=== PATIENT | male | born 1980 | race Caucasian/White ===

== ENCOUNTER 2023-08-23 12:31 | Outpatient (OUT) | payer MEDICAID, SELFPAY ==
--- NOTE | 2023-08-23 12:38 | FL_ITS ---
[address] [address] Patient Name: SREEDHAR MAYS MRN: [id number] date: 1980 Sex: M Assigned Patient Location: [place] Current Patient Location: [place] Accession/Order Number: [id number] Exam Date: 08/23/2023 12:45 Report Date: 08/23/2023 13:42 At the request of: TIM BENJAMIN Procedure: FL barium swallow EXAMINATION: FL barium swallow, FL cineradiography HISTORY: Pharyngoesophageal Dysphagia R13.14 COMPARISON: No relevant comparison available. TECHNIQUE: A swallowing evaluation was performed with fluoroscopy in the usual manner. Standard level fluoroscopic mode of operation utilized. The procedure was recorded. The patient was given thin barium as well as a barium tablet FINDINGS: ORAL PHASE: Normal deglutition. PHARYNGEAL PHASE: Normal swallowing. ASPIRATION: None. STRUCTURE: Normal. No visible obstruction, stricture, or dilatation. OTHER: Negative. FL/FL barium swallow IMPRESSION: Normal exam Electronically authenticated by: ANAHI NETTLES Date: 08/23/2023 13:42
--- NOTE | 2023-08-23 12:38 | FL_ITS ---
The [address] [address] Patient Name: SREEDHAR MAYS MRN: [id number] date: 1980 Sex: M Assigned Patient Location: [place] Current Patient Location: [place] Accession/Order Number: [id number] Exam Date: 08/23/2023 12:45 Report Date: 08/23/2023 13:42 At the request of: TIM BENJAMIN Procedure: FL cineradiography EXAMINATION: FL barium swallow, FL cineradiography HISTORY: Pharyngoesophageal Dysphagia R13.14 COMPARISON: No relevant comparison available. TECHNIQUE: A swallowing evaluation was performed with fluoroscopy in the usual manner. Standard level fluoroscopic mode of operation utilized. The procedure was recorded. The patient was given thin barium as well as a barium tablet FINDINGS: ORAL PHASE: Normal deglutition. PHARYNGEAL PHASE: Normal swallowing. ASPIRATION: None. STRUCTURE: Normal. No visible obstruction, stricture, or dilatation. OTHER: Negative. FL/FL cineradiography IMPRESSION: Normal exam Electronically authenticated by: ANAHI NETTLES Date: 08/23/2023 13:42
== END 2023-08-23 12:32 | disposition home or self-care (01) ==
PROVIDERS: PCP Family Medicine; Visit Provider Otolaryngology
DX: R13.14 Dysphagia, pharyngoesophageal phase (principal)
CPT/HCPCS: 74220; 76120

== ENCOUNTER 2023-08-30 13:09 | Day surgery (SDC) | payer SELFPAY ==
--- NOTE | 2023-08-30 13:13 | US_ITS ---
[address] [address] Patient Name: SREEDHAR MAYS MRN: [id number] date: 1980 Sex: M Assigned Patient Location: [place] Current [place] Location: [place] Accession/Order Number: [id number] Exam Date: 08/30/2023 13:15 Report Date: 08/30/2023 14:38 At the request of: TIM BENJAMIN Procedure: US biopsy thyroid EXAMINATION: US biopsy thyroid HISTORY: Thyroid Nodule COMPARISON: Ultrasound thyroid 07/18/2023 TECHNIQUE: After obtaining informed consent, ultrasound-guided fine needle aspiration was performed in the usual sterile manner. FINDINGS: IMAGING: Ultrasound. BIOPSY NEEDLE: 25-gauge; 3 separate passes LOCATION: Left lobe inferior pole heterogeneous 2.9 cm nodule. SPECIMEN TYPE: Cellular tissue. LOCAL ANESTHETIC: Buffered Xylocaine. COMPLICATIONS: None. LABORATORY: Prepared slide smears and washings for cell block evaluation. OTHER: Negative. PATHOLOGY: Pending. An addendum will be added when results are available. US/US biopsy thyroid IMPRESSION: 1. Uneventful ultrasound guided fine needle aspiration (FNA). 2. Pathology results are pending. Electronically authenticated by: KAT GHOTRA Date: 08/30/2023 14:38
--- OUTSIDE RECORDS SUMMARY | 2023-08-30 13:13 | XMS_ITS | CCD ---
Author Name Unknown Address [address] [place] [address] Organization [facility] Providers Care Contact Center Specialist Name Role Phone Libby HERNANDEZ, Yvonne Ashley Unavailable Love Templeton MD Primary Care Provider DR SINDY CHAPA Consulting Unavailable YUMIKO, DR LISANDRO Johnson Admitting Unavailable YOKASTA, DR LOVE Barajas Primary Care Unavailable YUMIKO, DR LISANDRO Johnson Attending Unavailable YUMIKO, DR LISANDRO Johnson Consulting Unavailable HAY, DR APPLE Consulting Unavailable MARKER, DR TOMAS Consulting Unavailable BRIANMERLYN HUSAIN Consulting Unavailable BJORN JEFFERSON Consulting Unavailable JOSE A TEJADA Consulting Unavailable YOKASTA, DR LOVE Barajas Primary Care Unavailable MOJGAN GRIMM Attending Unavailable MOJGAN GRIMM Consulting Unavailable MOJGAN GRIMM Admitting Unavailable Eliu ALVARADO Attending Unavailable Love Templeton MD Primary Care Provider AUDREY LESTER I Attending Unavailable LOVE TEMPLETON Referring Unavailable WONDERLY, LOVE Barajas Primary Care Unavailable STEVE ROLON Attending Unavailable WONDERLY, LOVE Barajas Referring Unavailable WONDERLY, LOVE Barajas Primary Care Unavailable LOVE TEMPLETON Attending Unavailable SANCHEZ BARBER Attending Unavailable TIM BENJAMIN Attending Unavailable LOVE TEMPLETON B Referring Unavailable WONDERROGER, LOVE Barajas Attending Unavailable WONDERROGER, LOVE B Referring Unavailable WONDERROGER, LOVE Barajas Referring Unavailable AUDREY LESTER I Referring Unavailable WONDERLY, LOVE Barajas Primary Care Unavailable YOKASTA, LOVE Barajas Primary Care Unavailable JUAN KELLEY Attending Unavailable AUDREY LESTER I Referring Unavailable LOVE TEMPLETON Primary Care Unavailable Love Templeton MD Primary Care Provider Allergies Allergy Classification Reported Allergen(s) Allergy Type Date of Onset Reaction(s) Facility (9 sources) Cephalexin; Translations: [CEPHALEXIN] Drug Allergy 6 GI Upset, GI Disturbance [facility] (9 sources) diphenhydrAMINE; Translations: [DIPHENHYDRAMINE HCL] Drug Allergy 0 Other: See Comments, Dizziness [facility] (9 sources) Escitalopram; Translations: [ESCITALOPRAM OXALATE] Drug Allergy 3 Unknown [facility] (1 source) diphenhydrAMINE Drug Allergy [facility] (4 sources) Amoxicillin; Translations: [AMOXICILLIN] Drug Allergy [address] [facility] (4 sources) buPROPion; Translations: [BUPROPION HCL] Drug Allergy 2 Other (See Comments) [facility] (4 sources) tiZANidine; Translations: [TIZANIDINE] [email or web address] (4 sources) traZODone; Translations: [TRAZODONE] Drug Allergy [address] [facility] Medications Current Medications Medication Drug Class(es) Dates Sig (Normalized) Sig (Original) [id number] 200 actuat albuterol 0.09 mg/actuat metered dose inhaler (2 sources) beta2-Adrenergic Agonist Start: 04-12-2022 take 2 puff(s) by inhalation every four hours as needed for wheezing albuterol (PROVENTIL HFA;VENTOLIN HFA) 90 mcg/actuation inhaler Inhale 2 puffs every 4 (four) hours as needed for wheezing. 0 04/12/2022 Active 24 hr alfuzosin hydrochloride 10 mg extended release oral tablet (2 sources) alpha-Adrenergic Lucina Start: 01-09-2023 take 1 tablet by mouth every twenty-four hours in the morning alfuzosin (UroxatraL) 10 mg 24 hr tablet Take 1 tablet (10 mg total) by mouth in the morning. 30 tablet 11 01/09/2023 Active betamethasone 0.5 mg/ml / clotrimazole 10 mg/ml topical cream (2 sources) Azole Antifungal, Corticosteroid Start: 08-07-2023 End: 09-04-2023 clotrimazole-beta methasone (LOTRISONE) cream Apply 1 Application topically in the morning and 1 Application before bedtime. Do all this for 28 days. 45 g 0 08/07/2023 09/04/2023 Active omeprazole 20 mg delayed release oral capsule (7 sources) Proton Pump Inhibitor Start: 10-03-2022 take 1 capsule by mouth in the morning omeprazole (PriLOSEC) 20 mg capsule Take 1 capsule (20 mg total) by mouth in the morning. 0 10/03/2022 Active Start: 06-04-2016 omeprazole (SC ILOSEC) 20 mg capsule Take 1 capsule by mouth. 0 06/04/2016 Active Comment on above: Take 1 capsule by mo [facility]. sildenafil 100 mg oral tablet (7 sources) Phosphodiesterase 5 Inhibitor Start: 06-04-20 take 1 tablet by mouth once daily sildenafiL (VIAGRA) 100 mg tablet take 1 tablet by mouth daily if needed for ERECTILE DYSFUNCTION 30 tablet 1 06/04/2023 Active Start: 07-07-2021 take 1 tablet by surinder th every twenty-four hours as needed sildenafil (VIAGRA) 100 mg tablet Take 100 mg by mouth at bedtime as needed. 0 07/07/2021 Active Comment on above: Take 100 mg by mouth at bedtime as needed. sucralfate 1000 mg oral tablet (1 source) Aluminum Complex Start: 08-13-2023 sucralfate (CARAFATE) 1 gram tablet Take 1 tablet (1 g total) by mouth in the morning and 1 tablet (1 g total) at noon and 1 tablet (1 g total) in the evening. 21 tablet 0 08/13/2023 Active Completed/Discontinued Medications Medication Drug Class(es) Dates Sig (Normalized) Sig (Original) atorvastatin 10 mg oral tablet (5 sources) HMG-CoA Reductase Inhibitor Start: 10-06-2021 take 1 tablet by mouth once daily atorvastatin (LIPITOR) 10 mg tablet Take 1 tablet by mouth once daily. 0 10/06/2021 Active Comment on above: Take 1 tablet by surinder once daily. fluticasone propionate 0.05 mg/actuat metered dose nasal spray (4 sources) Corticosteroid Start: 01-20-2021 fluticasone (FLONASE) 50 mcg/actuation nasal spray Use 1 Elizabeth in the nose. 0 01/20/2021 Active Comment on above: Use 1 Elizabeth in the n ose. hydrocortisone 0.025 mg/mg topical ointment (4 sources) Corticosteroid Start: 09-26-2021 hydrocortisone 2.5 % ointment apply to affected area OF GROIN twice a day 0 09/26/2021 Active Comment on above: apply to affected ar ea OF GROIN twice a day Loperamide (4 sources) Opioid Agonist loperamide HCl (LOPERAMIDE ORAL) Take by mouth. 0 Active Comment on above: Take by mouth. loratadine 10 mg oral tablet (5 sources) loratadine (CLARITIN) 10 mg tablet Take 10 mg by mouth. 0 Active Comment on above: Take 10 mg by mouth. Problems Active Problems Problem Classification Problem Date Documented Da te Episodic/Chronic Acute cerebrovascular disease (4 sources) Cerebral infarction, unspecified; Translations: [CEREBRAL INFARCTION UNSPECIFIED] Onset: 2 Chronic Anxiety disorders (2 sources) Anxiety; Translations: [Anxiety disorder, unspecified] Onset: 7 12-13-2016 Chronic Cardiac dysrhythmias (2 sources) Atrial paroxysmal tachycardia; Translations: [PAT (paroxysmal atrial tachycardia)] Onset: 1 05-04-2022 Chronic Disorders of lipid metabolism (3 sources) Pure hypercholesterolemia, unspecified; Translations: [Hyperlipidemia] Onset: 7 12-07-2020 Chronic Esophageal disorders (4 sources) Gastroesophageal reflux disease without esophagitis; Translations: [Gastro-esophageal reflux disease without esophagitis] Onset: 2 Chronic Gastritis and duodenitis (1 source) Gastritis, unspecified, with bleeding; Translations: [Gastritis, unspecified, with bleeding] Onset: 4 Episodic Headache; including migraine (2 sources) Migraine; Translations: [Migraine, unspecified, not intractable, without status migrainosus] Onset: 7 12-13-2016 Chronic Headache; including migraine (1 source) Headache; including migraine; Translations: [HEADACHE UNSPECIFIED] Onset: 2 Mood disorders (2 sources) Depressive disorder; Translations: [Depression] Onset: 7 12-13-2016 Chronic Other circulatory disease (1 source) Other specified symptoms and signs involving the circulatory and respiratory systems; Translations: [Other specified symptoms and signs involving the circulatory and respiratory systems] Onset: 3 Episodic Other endocrine disorders (1 source) Male hypogonadism; Translations: [Testicular hypofunction] 08-28-2023 Chronic Other gastrointestinal disorders (2 sources) Irritable bowel syndrome; Translations: [Irritable bowel syndrome without diarrhea] Onset: 7 12-13-2016 Chronic Other male genital disorders (5 sources) Male erectile dysfunction, unspecified; Translations: [Impotence of organic origin] Onset: 1 08-07-2023 Chronic Other male genital disorders (4 sources) Pain of right testicle; Translations: [Right testicular pain] Episodic Other nutritional; endocrine; and metabolic disorders (1 source) Hypocalcemia; Translations: [HYPOCALCEMIA] Onset: 2 Chronic Other nutritional; endocrine; and metabolic disorders (2 sources) Body mass index 30+ - obesity; Translations: [Obesity, unspecified] Onset: 1 12-07-2020 Chronic Other skin disorders (1 source) Eruption; Translations: [Rash and other nonspecific skin eruption] 08-07-2023 Episodic Residual codes; unclassified (3 sources) Tobacco use and exposure - finding; Translations: [Tobacco use] Onset: 2 Episodic Substance-related disorders (3 sources) Nicotine dependence, cigarettes, uncomplicated; Translations: [Smoker] Onset: 7 12-07-2020 Chronic Thyroid disorders (2 sources) Nontoxic single thyroid nodule; Translations: [NONTOXIC SINGLE THYROID NODULE] Onset: 2 Chronic Unclassified (1 source) CONTACT W/AND (SUSP) EXPOS COVID-19; Translations: [CONTACT W/AND (SUSP) EXPOS COVID-19] Onset: 2 Unclassified (3 sources) COUGH, UNSPECIFIED; Translations: [COUGH, UNSPECIFIED] Onset: 2 Unclassified (1 source) Rash Onset: 4 Unclassified (1 source) GI Problem Onset: 4 Unclassified (1 source) Abdominal Pain, Coffee Ground Emesis Onset: 4 Past or Other Problems Problem Classification Problem Date Documented Da te Episodic/Chronic Abdominal pain (4 sources) Right inguinal pain; Translations: [Right lower quadrant pain] Onset: 02-03-2013 04-08-2020 Episodic Diseases of mouth; excluding dental (2 sources) Acquired anomaly of uvula; Translations: [Other lesions of oral mucosa] Onset: 03-28-2017 03-28-2017 Episodic Genitourinary symptoms and ill-defined conditions (4 sources) Delay when starting to pass urine; Translations: [Hesitancy of micturition] Onset: 01-20-2021 03-14-2023 Episodic Mood disorders (2 sources) Mood disorders Onset: 06-09-2020 06-09-2020 Other gastrointestinal disorders (2 sources) Diarrhea; Translations: [Diarrhea, unspecified] Onset: 02-03-2013 02-14-2021 Episodic Other gastrointestinal disorders (2 sources) Heartburn; Translations: [Heartburn] Onset: 02-03-2013 02-14-2021 Episodic Other lower respiratory disease (2 sources) Snoring; Translations: [Snoring] Onset: 12-19-2016 12-19-2016 Episodic Other lower respiratory disease (4 sources) Apnea; Translations: [Apnea, not elsewhere classified] Onset: 12-19-2016 Resolved: 03-28-2017 03-16-2020 Episodic Other lower respiratory disease (2 sources) Dyspnea; Translations: [Dyspnea, unspecified] Onset: 08-02-2016 Resolved: 12-07-2020 12-07-2020 Episodic Other lower respiratory disease (2 sources) Cough; Translations: [Cough] Onset: 08-02-2016 Resolved: 12-07-2020 12-07-2020 Episodic Other male genital disorders (2 sources) Pain in testicle; Translations: [Testicular pain, unspecified] Onset: 02-09-2020 02-09-2020 Episodic Other upper respiratory disease (2 sources) Pain in throat; Translations: [Pain in throat] Onset: 12-13-2016 12-13-2016 Episodic Other upper respiratory disease (2 sources) Nasal obstruction; Translations: [Other specified disorders of nose and nasal sinuses] Onset: 12-13-2016 12-13-2016 Episodic Other upper respiratory disease (2 sources) Deviated nasal septum; Translations: [Deviated nasal septum] Onset: 03-28-2017 03-28-2017 Episodic Other upper respiratory infections (5 sources) Acute pharyngitis, unspecified; Translations: [Laryngitis] Onset: 08-02-2016 08-02-2016 Episodic Unclassified (1 source) COUGH, UNSPECIFIED; Translations: [COUGH, UNSPECIFIED] Onset: 04-12-2022 Results Test Name Value Interpretation Reference Range Facility TESTOSTERONE,F AND Ton 08-20 TESTOSTERONE,F,AD,ML 53.3 pg/mL Normal 47.0-244.0 [facility] Comment on above: Result Comment: NOTE INTERPRETIVE INFORMATION: Testosterone, Free by Dialysis This laboratory reference method for the direct measurement of free testosterone is not recommended when low testosterone concentrations, such as those found in children and cisgender females, are expected. For these individuals, the preferred test is Testosterone, Free (Adult Females, Children, or Individuals on Testosterone-Suppressing Hormone Therapy) (Streetcar test code 6077289). For individuals on testosterone hormone therapy, refer to cisgender male reference intervals. No reference intervals have been established for males younger than 18 years or for cisgender females. For a complete set of all established reference intervals, refer to ltd.PhoneTell/Tests/Pub/6981954. This test was developed and its performance characteristics determined by [facility]. It has not been cleared or approved by the [place] Food and Drug Administration. This test was performed in a CLIA certified laboratory and is intended for clinical purposes. Performed By: [facility] [address] [place] [address] Retrieval Specialist: Flakito Moreira MD, PhD CLIA Number: [id number] Performed By: #### T EFTMA #### [facility] ([id number]) [address] [place] [address]6464 TESTOSTERONE,TOT 278.9 ng/dL Low 300.0-890.0 [facility] Comment on above: Result Comment: NOTE This test was developed and its performance characteristics determined by [facility]. It has not been cleared or approved by the [place] Food and Drug Administration. This test was performed in a CLIA certified laboratory and is intended for clinical purposes. Performed By: #### T EFTMA #### [facility] ([id number]) [address] [place] [address] 38156 CBC AND AUTO DIFFon 08-13-19 24 ABSOLUTE BASOPHIL 0.0 X10E9/L Normal 0.0-0.2 [facility] Comment on above: Performed By: #### C BCA #### [facility] ([id number]) [address] [place] [address] 59852 ABSOLUTE NEUTROPHIL 4.4 X10E9/L Normal 1.5-6.6 [facility] Comment on above: Performed By: #### C BCA #### [facility] ([id number]) [address] [place] [address] 98851 Basophils/100 WBC (Bld) 0.5 % Normal [facility] Comment on above: Performed By: #### C BCA #### [facility] ([id number]) [address] [place] [address] 72591 Eosinophils (Bld) [#/Vol] 0.1 10*3/uL Normal 0.0-0.4 [facility] Comment on above: Performed By: #### C BCA #### [facility] ([id number]) [address] [place] [address] 88693 Eosinophils/100 WBC (Bld) 1.2 % Normal [facility] Comment on above: Performed By: #### C BCA #### [facility] ([id number]) [address] [place] [address] 87867 Erythrocyte distribution width (RBC) [Ratio] 13.1 % Normal 11.5-15.0 [facility] Comment on above: Performed By: #### C BCA #### [facility] ([id number]) [address] [place] [address] 40334 Hematocrit (Bld) [Volume fraction] 45.5 % Normal 39-49 [facility] Comment on above: Performed By: #### C BCA #### [facility] ([id number]) [address] [place] [address] 40474 Hemoglobin (Bld) [Mass/Vol] 15.6 g/dL Normal 13.0-17.0 [facility] Comment on above: Performed By: #### C BCA #### [facility] ([id number]) [address] [place] [address] 78530 Lymphocytes (Bld) [#/Vol] 2.0 10*3/uL Normal 1.0-3.5 [facility] Comment on above: Performed By: #### C BCA #### [facility] ([id number]) [address] [place] [address] 51309 Lymphocytes/100 WBC (Bld) 28.5 % Normal [facility] Comment on above: Performed By: #### C BCA #### [facility] ([id number]) [address] [place] [address] 26293 MCH (RBC) [Entitic mass] 32.4 pg Normal 27-34 [facility] Comment on above: Performed By: #### C BCA #### [facility] ([id number]) [address] [place] [address] 43258 MCHC (RBC) [Mass/Vol] 34.4 g/dL Normal 32-36 [facility] Comment on above: Performed By: #### C BCA #### [facility] ([id number]) [address] [place] [address] 59844 MCV (RBC) [Entitic vol] 94 fL Normal 80-100 [facility] Comment on above: Performed By: #### C BCA #### [facility] ([id number]) [address] [place] [address] 13008 Monocytes (Bld) [#/Vol] 0.6 10*3/uL Normal 0-0.9 [facility] Comment on above: Performed By: #### C BCA #### [facility] ([id number]) [address] [place] [address] 94866 Monocytes/100 WBC (Bld) 8.1 % Normal [facility] Comment on above: Performed By: #### C BCA #### [facility] ([id number]) [address] [place] [address] 74262 Neutrophils/100 WBC (Bld) 61.7 % Normal [facility] Comment on above: Performed By: #### C BCA #### [facility] ([id number]) [address] [place] [address] 47471 Platelet mean volume (Bld) [Entitic vol] 8.4 fL Normal 7-12 [facility] Comment on above: Performed By: #### C BCA #### [facility] ([id number]) [address] [place] [address] 33105 Platelets (Bld) [#/Vol] 263 10*3/uL Normal 150-450 [facility] Comment on above: Performed By: #### C BCA #### [facility] ([id number]) [address] [place] [address] 84234 RBC COUNT 4.83 X10E12/L Normal 4.10-5.70 [facility] Comment on above: Performed By: #### C BCA #### [facility] ([id number]) [address] [place] [address] 92799 WBC (Bld) [#/Vol] 7.2 10*3/uL Normal 4.0-11.0 [facility] Comment on above: Performed By: #### C BCA #### [facility] ([id number]) [address] [place] [address] 80356 TESTOSTERONE,F AND Ton 08-08 TESTOSTERONE,F,AD,ML 41.2 pg/mL Low 47.0-244.0 [facility] Comment on above: Result Comment: NOTE INTERPRETIVE INFORMATION: Testosterone, Free by Dialysis This laboratory reference method for the direct measurement of free testosterone is not recommended when low testosterone concentrations, such as those found in children and cisgender females, are expected. For these individuals, the preferred test is Testosterone, Free (Adult Females, Children, or Individuals on Testosterone-Suppressing Hormone Therapy) ([employer] test code [id number]). For individuals on testosterone hormone therapy, refer to cisgender male reference intervals. No reference intervals have been established for males younger than 18 years or for cisgender females. For a complete set of all established reference intervals, refer to ltd.PhoneTell/Tests/Pub/1736566. This test was developed and its performance characteristics determined by [facility]. It has not been cleared or approved by the [place] Food and Drug Administration. This test was performed in a CLIA certified laboratory and is intended for clinical purposes. Performed By: [facility] [address] [place] [address] Retrieval Specialist: Flakito Moreira MD, PhD CLIA Number: [id number] Performed By: #### T EFTMA #### [facility] ([id number]) [address] [place] [address] 64255 TESTOSTERONE,TOT 189.8 ng/dL Low 300.0-890.0 [facility] Comment on above: Result Comment: NOTE This test was developed and its performance characteristics determined by [facility]. It has not been cleared or approved by the US Food and Drug Administration. This test was performed in a CLIA certified laboratory and is intended for clinical purposes. Performed By: #### T EFTMA #### [facility] ([id number]) [address] [place] [address] CHEST WO IV CONTRASTon CT CHEST WO IV CONTRAST EXAMINATION: CT scan of the chest HISTORY: Nicotine dependence COMPARISON: None TECHNIQUE: Multiple serial axial images of the chest from the base neck through the upper abdomen with post sagittal coronal reconstruction was performed without intravenous or oral administration of contrast. All CT scans at this facility use dose modulation, iterative reconstruction, and/or weight based dosing when appropriate to reduce radiation dose to as low as reasonably achievable. FINDINGS: The right lung parenchyma shows no focal parenchymal abnormalities. No pleural effusions. No pneumothoraces. The left lung parenchyma shows no focal parenchymal abnormalities no pleural effusions. No pneumothoraces. The heart and great vessels are intact. No significant periaortic, pretracheal, parahilar or subcarinal adenopathy. Within the [id number] visualized abdominal contents show the gallbladder is surgically absent. In the nfhag-sb-ycyl there is a left borderline substernal thyroid. There is an ill-defined area of low-attenuation nodule within this component measuring 1.3 cm. There is multilevel degenerative change with bridging osteophytes of the visualized thoracic spine. IMPRESSION: 1 THERE IS A BORDERLINE LEFT LOBE OF THE THYROID THAT IS SUBSTERNAL. THERE IS ALSO AN ILL-DEFINED NODULE WITHIN THIS COMPONENT. WILL NEED FURTHER EVALUATION. RECOMMEND FOLLOW-UP THYROID ULTRASOUND TO FURTHER EVALUATE. 2. UNREMARKABLE CT SCAN OF THE CHEST DESCRIBED ABOVE ELECTRONICALLY SIGNED BY: Garret Pearl MD Normal Not Available XR CHEST 2 VIEWSon 3 XR CHEST 2 VIEWS EXAM: XR CHEST 2 VIE WS CLINICAL INDICATION: shortness of breath COMPARISON: None. FINDINGS: Lungs are symmetrically inflated. No focal airspace disease. No pneumothorax or pleural effusion. Cardiac silhouette and mediastinum are within normal limits. No acute osseous abnormality. IMPRESSION: No acute cardiopulmonary abnormality identified. ELECTRONICALLY SIGNED BY: Bennie Norman MD Normal Not Available MRI Knee w/o Lefton 05-22-20 22 MRI Knee w/o Left History: Medial and lateral knee pain. Knee locking. Internal derangement of left knee. History of prior surgery Technique: Multiplanar multisequence MRI of the knee was performed without contrast. Comparison: Radiographs of the knee 10/19/2021 Findings: Quadriceps and patellar tendons are intact. Small joint effusion with 2 loose bodies at the superior aspect of the lateral femoral trochlea measuring approximately 13 mm and 9 mm respectively. Anterior and posterior cruciate ligaments are intact. The medial collateral ligament, lateral collateral ligament, and popliteus myotendinous unit are intact. Horizontally oriented linear hyperintense signal within the anterior horn of the lateral meniscus appears to reach the intra-articular surface on one image. The medial meniscus is intact. Diffuse cartilage abnormality of the weightbearing lateral femoral condyle comprised of several tiny partial and full-thickness cartilage defects with a few foci of subcortical bone marrow edema. Popliteal fossa structures are intact. Tiny Olivas cyst. IMPRESSION: Possible horizontal tear of the anterior horn of the lateral meniscus. Mild lateral compartment osteoarthritis. Report reported and signed by Dylan Lazo on 05/22/2022 1320 Normal [facility]on 03-29 SARS-CoV-2 (COVID-19) RNA OLGA LIDIA+probe Ql (Unsp spec) Not detected Normal NOT DETECTED [facility] Comment on above: Result Comment: This test is not yet approved or cleared by the [place] FDA. When there are no FDA-approved or cleared tests available, and other criteria are met, FDA can make tests available under an emergency access mechanism called an Emergency Use Authorization (EUA). The EUA for this test is supported by the [place] of Health and Human Service's (HHS's) declaration that circumstances exist to justify the emergency use of in vitro diagnostics for the detection and/or diagnosis of the virus that causes COVID-19. This EUA will remain in effect (meaning this test can be used) for the duration of the COVID-19 declaration justifying emergency of IVDs, unless it is terminated or revoked by FDA (after which the test may no longer be used). When diagnostic testing is negative, the possibility of a false negative should be considered in the context of a patient's recent exposures and the presence of clinical signs and symptoms consistent with SARS-CoV-2. Performed By: #### [facility] ####[facility] [id number] [place], [place] [id number] Rickey Mani Walter 12-29-2021 ANAN Telephone (JESSICAN) GEORGES MAYS ([id number]) 1980 M Date Time Provider Department 12/29/21 SAMY DUKE During your visit today, we recorded the following information about you: Samy Duke MD 12/29/2021 10:25 AM Signed Called to check on patient postop No answer Left brief VM Samy Duke MD, PhD Allergies As of Date: 12/29/2021 Noted Allergy Reaction CEPHALEXIN 07/26/2016 8 - GI Upset DIPHENHYDRAMINE HCL 03/14/2020 14 - Other: See Comments Comments: Drowsy, sleepy ESCITALOPRAM OXALATE 02/02/2013 16 - Unknown Date Reviewed: 12/28/2021 Reviewed by: Karen Guaman RN - Fully Assessed Reason for Visit: Post-Op Visit [1236] Prescriptions as of 12/29/2021 - atorvastatin (LIPITOR) 10 mg tablet Take 1 tablet by mouth once daily. - loratadine (CLARITIN) 10 mg tablet Take 10 mg by mouth. - omeprazole (PRILOSEC) 20 mg capsule Take 1 capsule by mouth. - sildenafil (VIAGRA) 100 mg tablet Take 100 mg by mouth at bedtime as needed. Problem List As Of Date 12/29/2021 Noted Resolved Gastroesophageal reflux disease without esophag*12/19/2021 Tobacco use [Z72.0] 12/19/2021 Encounter Status:Closed by SAMY DUKE on 12/29/21 [facility] ANES POSTPROC EVALon 022 ANES POSTPROC EVAL HNO ID: [id number] Author: Luis Fernando Farfan MD Service: Anesthesiology Author Type: Anesthesiologist Type: Anesthesia Postprocedure Evaluation Filed: 12/28/2021 1:12 PM Note Text: POST ANESTHESIA EVALUATION NOTE : 1980 Procedure Summary Date: 12/28/21 Room / Location: [address] Anesthesia Start: 1201 Anesthesia Stop: 1251 Procedures: SPERMATIC CORD DENERVATION (Right Groin) EXCISION LESION SPERMATIC CORD (Right ) EXCISION VARICOCELE (Right ) Diagnosis: Testicular pain, right (Testicular pain, right [N50.811]) Surgeons: Yvonne Coleman MD Responsible Provider: Luis Fernando Farfan MD Anesthesia Type: general ASA Status: 2 Anesthesia Type: general Airway Type: LMA Last Vitals Vitals Value Taken Time BP 126/74 12/28/21 1311 Temp 36.1 ?C (97 ?F) 12/28/21 1249 Pulse 74 12/28/21 1311 Resp 16 12/28/21 1311 SpO2 99 % 12/28/21 1311 Post Anesthesia Patient Status Patient Evaluation: PACU. PACU/ICU Patient Condition: stable. Anticipated Disposition: phase 2 then home. Neurological Status: aware and responsive. Pulmonary Status: breathing comfortably on room air Airway Control: returned to baseline unsupported. Cardiovascular Status: stable. Pain Management: clinically adequate Postoperative Hydration: acceptable. Intraoperative Events: no significant anesthesia events Recommendation: continue current plan of care and further care per PACU/ICU/floor team. Anesthesia Observations No Documentation SIGNATURE: Luis Fernando Farfan MD PATIENT NAME: Georges Mays DATE: December 28, 2021 TIME: 1:12 PM CSN: [id number] [facility] ANES PRE-OPon 12-28-2021 ANES PRE-OP HNO ID: [id number] Author: Luis Fernando Farfan MD Service: Anesthesiology Author Type: Anesthesiologist Type: Anesthesia Preprocedure Evaluation Filed: 12/28/2021 11:29 AM Note Text: ANESTHESIOLOGY DAY OF SURGERY NOTE : 1980 Procedure Information Date/Time: 12/28/21 1230 Procedures: SPERMATIC CORD DENERVATION (Right Groin) EXCISION LESION SPERMATIC CORD (Right ) EXCISION VARICOCELE (Right ) [facility] Surgeons: Yvonne Coleman MD Estimated body mass index is 28.89 kg/m? as calculated from the following: Height as of 12/19/21: 172.7 cm (5' 8 ). Weight as of 12/19/21: 86.2 kg (190 lb). Most recent hematocrit and potassium results: No results found for this basename: HCT,HEMATOCRIT,K,POTAS SIUM Relevant Problems GI (+) Gastroesophageal reflux disease without esophagitis Other (+) Tobacco use I - PHYSICAL EVALUATION AIRWAY Patient intubated: No. Tracheostomy tube not present Mallampati: I. TM distance: >3 FB. Neck ROM: full ROM without neurological symptoms. Mouth opening: adequate. Short neck: no. Thick neck: no DENTAL Dental findings: teeth intact. Additional exam findings: yes. CARDIOVASCULAR Normal cardiovascular observations. Rhythm: regular Rate: normal PULMONARY Normal pulmonary observations. Breath sounds clear to auscultation. II - ANESTHESIA PLAN ASA Score: 2 Anesthetic Plan: general Airway type: LMA NPO Status: adequate Monitoring plan: Standard ASA. Postoperative analgesic plan: multimodal analgesia. Informed Consent Anesthetic risks, benefits, alternatives, personnel and consent discussed: yes. Patient / Responsible Alliance Party agrees to proceed: yes Patient / Surrogate agrees to blood products: blood products not planned Significant changes in the patient condition since the History and Physical, not otherwise documented in primary service progress note: no. Potential Anesthesia issues that may suggest increased risk of complications or contraindication to planned procedure: none. Vitals Value Taken Time BP 124/67 12/28/21 1101 Pulse Resp 18 12/28/21 1101 Temp 36 ?C (96.8 ?F) 12/28/21 1101 SpO2 99 % 12/28/21 1101 Facility-Administered Medications as of 12/28/2021 Medication Dose Route Frequency - lidocaine 10 mg/mL (1 %) 1-2 mg injection (XYLOCAINE) 0.1-0.2 mL INTRADERMAL PRN - lactated ringers iv infusion 5-30 mL/hr INTRAVENOUS CONTINUOUS - clindamycin iv piggyback 900 mg in D5W 50 mL (CLEOCIN) 900 mg INTRAVENOUS ONCE - [COMPLETED] acetaminophen 1,000 mg tab(s) (TYLENOL) 1,000 mg ORAL Pre-Op Once - [COMPLETED] promethazine 12.5 mg tab(s) (PHENERGAN) 12.5 mg ORAL Pre-Op Once - lactated ringers iv infusion 30 mL/hr INTRAVENOUS CONTINUOUS Outpatient Medications as of 12/28/2021 Medication Sig - atorvastatin (LIPITOR) 10 mg tablet Take 1 tablet by mouth once daily. - omeprazole (PRILOSEC) 20 mg capsule Take 1 capsule by mouth. - loperamide HCl (LOPERAMIDE ORAL) Take by mouth. (Patient not taking: Reported on 12/19/2021 ) - fluticasone (FLONASE) 50 mcg/actuation nasal spray Use 1 Elizabeth in the nose. (Patient not taking: Reported on 12/19/2021 ) - hydrocortisone 2.5 % ointment apply to affected area OF GROIN twice a day (Patient not taking: apply to affected area OF GROIN twice a day) - loratadine (CLARITIN) 10 mg tablet Take 10 mg by mouth. - sildenafil (VIAGRA) 100 mg tablet Take 100 mg by mouth at bedtime as needed. I have interviewed and examined the patient. I have reviewed the medical record and/or the pre-anesthesia evaluation, pertinent labs, and test results. This contains updated information obtained within 48 hours of Surgery/Procedure. SIGNATURE: Luis Fernando Farfan MD PATIENT NAME: Georges Mays DATE: December 28, 2021 TIME: 11:29 AM CSN: [id number] [facility] HISTORY PHYSICALon HISTORY PHYSICAL HNO ID: [id number] Author: Yvonne Coleman MD Service: Urology Author Type: Physician Type: HANDP Filed: 12/28/2021 11:32 AM Note Text: UPDATED HISTORY AND PHYSICAL EXAMINATION SERVICE DATE: 12/28/2021 SERVICE TIME: 11:32 AM PHYSICAL EXAM MUST BE COMPLETED ON ADMISSION The History and Physical (completed in the past 30 days) has been reviewed and the patient has been examined. The contents accurately reflect the patient's condition with the following additions or revisions since the HANDP was completed. Examination indicates no changes. This HANDP can be found in the attached. SIGNATURE: Yvonne Coleman MD PATIENT NAME: Georges Mays DATE: December 28, 2021 TIME: 11:32 AM PAGER: [facility] OPERATIVE NOon 12-28-2021 OPERATIVE NO HNO ID: [id number] Author: Samy Duke MD Service: Urology Author Type: Physician Type: Operative Report Filed: 12/28/2021 1:00 PM Note Text: Attestation signed by Yvonne Coleman MD at 12/28/2021 2:37 PM Yvonne Coleman MD [facility] UROLOGY OPERATIVE REPORT Patient Name: Georges Mays Patient Log ID: [id number] Surgery Date: 12/28/2021 Incision/Procedure Start Time: 12:11 PM Incision Close/Procedure End Time: 12:44 PM Surgeon(s) and Human Resources Professional(s): Surgeon(s) and Role: * Yvonne Coleman MD - Primary * Samy Duke MD - Fellow Preoperative Diagnosis 1. Right testicular pain Postoperative Diagnosis Same Procedure 1. Right spermatic cord denervation (redo operation, 22 modifier) Anesthesia General LMA Operative Indications: The patient is a 41 year old male with a history of right testicular pain status post numerous interventions including epididymectomy and right spermatic cord denervation who presents with refractory pain. He was counseled on management options including conservative management, referral to chronic pain provider, and orchiectomy. He was counseled on the potential for a repeat spermatic cord denervation, understanding that this carried a high risk of failure and/or testicular loss or atrophy. A cord block was performed and relieved his pain. After further discussion, he elected to proceed with repeat spermatic cord denervation. The risks, benefits, and alternatives were reiterated to the patient, who agreed to proceed with surgical management. Operative Findings -Atretic spermatic cord with surrounding inflammatory rind -Audible arterial doppler signal identified and preserved -Vas deferens identified and divided Operative Procedure The patient was brought to the operating room by the primary team where a huddle involving the patient, surgeons, anesthesia, and operative staff correctly identified the patient, procedure to be performed, laterality, allergies, antibiotics, and equipment to be used. A weight appropriate dose of prophylactic antibiotics (ancef) was administered intravenously prior to the procedure and sequential compression devices were applied to the lower extremities and activated prior to induction of anesthesia. General anesthesia was induced. The patient was placed in the supine position. All pressure points were padded per protocol and the operative area was prepped and draped in the standard sterile fashion. A 2-cm incision was made just below the level of the rightexternal ring overlying the pre-existing scar from his prior operation, and the underlying tissues were carefully divided with electrocautery and blunt dissection. The dissection was quite difficult due to his prior operation and residual scar tissue. The vas deferens and a portion of the cord was identified and elevated. A amrik drain was then passed behind the cord and used to gently elevate the cord into the operative field. Additional cord elements were then elevated in a similar fashion and included in the operative field. Doppler investigation revealed the presence of a single testicular artery signal. The operative microscope was then brought over the surgical field and focused. There was obliteration of prior operative douglas and minimal residual cremasteric fibers. The fibrofatty tissue surrounding the cord structures was divided. The vas deferens was clipped and divided. The presence of an arterial signal was confirmed multiple times throughout the case. All visible veins were clipped and divided (approximately 4-5 veins). The testicular artery was assessed and flow was confirmed using Microdoppler throughout the dissection and again at the completion of the case. The amrik drain was removed and the cord returned to its anatomic location. The wound was irrigated and hemostasis was ensured. The subcutaneous tissues were approximated with several layers of 3-0 vicryl and the skin edges approximated with a running 4-0 vicryl stitch and covered with a dressing. The patient tolerated the procedure well and was taken to the recovery area in stable condition. Please note the addition of the 22 modifier for this case due to the difficulty with identifying and elevating the spermatic cord requiring additional time, the challenge in identifying the testicular artery, and the obliteration of surgical planes increasing the complexity and risk of the operation. Estimated Blood Loss 5mL Specimens * No specimens in log * Implantable Devices None Drains None Complications None Accidental perforations or lacerations None The primary surgeon performed the procedure with assistance from the fellow Dictated by Samy Duke MD, PhD on (more content not included)... Normal [facility] HISTORY PHYSICALon 2 HISTORY PHYSICAL HNO ID: [id number] Author: Olga Muse PA-C Service: ? Author Type: Physician Human Resources Professional Type: HANDP Filed: 12/19/2021 11:16 AM Note Text: PREANESTHESIA CONSULT CLINIC TELEHEALTH VISIT Patient has been identified by name and date of : Yes This is a virtual visit using Alternative video platform. It require patient-provider interaction for the medical decision making as documented below. Reason for contact: PACC visit Accompanied by: Self Scheduled Surgery: SPERMATIC CORD DENERVATION, EXCISION LESION SPERMATIC CORD, EXCISION VARICOCELE Subjective CHIEF COMPLAINT: testicular pain, right HPI: This is a 41 year old male who presents with right testicular pain for the past 10 months. Lifting heavy objects makes the pain worse. Pain was precipitated by vasectomy procedure in 01/2021. He denies dysuria and hematuria. He denies fever, chills, chest pain and SOB. ACTIVE PROBLEM LIST Gastroesophageal Reflux Disease Without Esophagitis Tobacco Use PAST MEDICAL HISTORY Diagnosis Date - Gastroesophageal reflux disease without esophagitis 12/19/2021 PAST SURGICAL HISTORY Procedure Laterality Date - CHOLECYSTECTOMY HX - KNEE ARTHROSCOPY/SURGERY Left - REPAIR ING HERNIA,5+Y/O,REDUCIBL - VASECTOMY FAMILY HISTORY Problem Relation Age of Onset - Anesthesia Problems No Family History Social History Tobacco Use - Smoking status: Current Every Day Smoker Packs/day: 0.50 Years: 15.00 Pack years: 7.50 Types: Cigarettes - Smokeless tobacco: Never Used Substance Use Topics - Alcohol use: Yes Comment: socially - 3 drinks per week - Drug use: Not Currently ALLERGIES Allergen Reactions - Cephalexin GI Upset - Diphenhydramine Hcl Other: See Comments Drowsy, sleepy - Escitalopram Oxalate Unknown MEDICATIONS: Current Outpatient Medications Medication Sig - atorvastatin (LIPITOR) 10 mg tablet Take 1 tablet by mouth once daily. - loratadine (CLARITIN) 10 mg tablet Take 10 mg by mouth. - omeprazole (PRILOSEC) 20 mg capsule Take 1 capsule by mouth. - sildenafil (VIAGRA) 100 mg tablet Take 100 mg by mouth at bedtime as needed. - loperamide HCl (LOPERAMIDE ORAL) Take by mouth. (Patient not taking: Reported on 12/19/2021 ) - fluticasone (FLONASE) 50 mcg/actuation nasal spray Use 1 Elizabeth in the nose. (Patient not taking: Reported on 12/19/2021 ) - hydrocortisone 2.5 % ointment apply to affected area OF GROIN twice a day (Patient not taking: apply to affected area OF GROIN twice a day) No current facility-administered medications for this visit. COVID VACCINATION STATUS: Fully vaccinated REVIEW OF SYSTEMS: Pain Assessment: General: No weight loss, malaise or fevers. Neuro: No history of TIA's, stroke, FLIGHT INSPECTOR tumor, impaired sensorium, hemiplegia, paraplegia or quadraplegia. No neurological symptoms or problems. Respiratory: No history of current cough or dyspnea, or pneumonia in the past 6 weeks. No history of respiratory/pulmonary symptoms or problems. +smoker Cardiovascular: Negative for Recent UT, Angina, Arrhythmia, CAD, Chest Pain, CHF, HTN, PVD, Valvular Heart Disease, DVT/PE +HLD On rx GI: Negative for Nausea, Vomiting, ETOH > 2 drinks / day +GERD on rx, +fatty liver : No history of dysuria, frequency or incontinence,, stones or chronic kidney disease Endocrine: No history of diabetes. Has not taken steroids within the past 30 days. No history of endocrinological symptoms or problems. Hematology: No history of bleeding or clotting disorder. Pt is not taking anti-coagulation or platelet medications. No history of hematological symptoms or problems. Oncology: No history of CA metastasis, chemo within 30 days, or radiotherapy within 90 days. Has not lost 10% of body wt in 6 months. No history of oncological symptoms or problems. Psych: No history of psychiatric symptoms or problems. Musculoskeletal: Negative for joint pain or swelling, back pain or muscle pain. Skin: Negative for lesions, rash and itching. Objective PHYSICAL EXAM: Ht 5' 8 (1.73m) Wt 190 lb (86.2kg) BMI 28.90 kg/(m2). VIDEO EXAM: (if completed, performed via video enabled technology) GENERAL: alert and appropriate, in no distress, well-hydrated, well nourished and happy, smiling, interactive SKIN: no rash noted HEAD: normocephalic, no abnormality or lesion noted EYES: no injection OROPHARYNX: moist mucus membranes NECK: full ROM, no cervical LNs noted RESPIRATORY: breathing non-labored CHEST: equal chest rise with normal respiratory effort HEART: Well perfused, no cyanosis noted NEUROLOGIC: no obvious deficit Diagnostic tests reviewed for today's visit: No results found for: HBA1C Most recent labs in CE reviewed Most recent Echo 09/26/20 - found in [facility] - ?Left Ventricle: Systolic function is normal with an ejection fraction of 65-70%. - ?Left Ventricle: Normal diastolic function is present. - ?Right Ventricle: Systolic function is norm (more content not included)... Normal [facility] CNOVon 12-18-2021 CNOV Office Visit (UROLAV ) GEORGES MAYS ([id number]) 1980 M Date Time Provider Department 12/18/21 9:00 AM YVONNE COLEMAN During your visit today, we recorded the following information about you: Pulse Blood pressure Weight 95/minute 129/75 86.2 kg Yvonne Coleman MD 12/18/2021 9:22 AM Signed Georges Mays Referred by: Sim Tyler [address] [place] [address] 12/18/2021 CC: Testis Pain HPI: 41 year old, male presents for evaluation of testis pain on the right side. Pain has been present for 10 months. Pain is shooting pains in nature. Lifting makes the pain worse and nothing makes the pain better. Pain started after vasectomy January 2021. Had persistent motile sperm on several PVSA so then underwent epididymectomy - he thinks R side only but per US, it was bilateral. He then had a surgery where nerves were burned (right side, chart says neurolysis spermatic cord subinguinal, 02/2021) and then PVSA showed no sperm. Therapies tried: Surgeries as above Pain management Abx Anti Inflammatories Genitourinary history: Hx Mumps orchitis, trauma, or undescended testis: none Hx stone disease: none Hx UTI/prostatitis/epidid imitis/STI: none ROS: Sexual frequency/libido:intac t, no ED Urinary sx: none Hematuria: none No past medical history on file. No past surgical history on file. Current Outpatient Medications Medication Sig - loperamide HCl (LOPERAMIDE ORAL) Take by mouth. - atorvastatin (LIPITOR) 10 mg tablet Take 1 tablet by mouth once daily. - fluticasone (FLONASE) 50 mcg/actuation nasal spray Use 1 Elizabeth in the nose. - hydrocortisone 2.5 % ointment apply to affected area OF GROIN twice a day - loratadine (CLARITIN) 10 mg tablet Take 10 mg by mouth. - omeprazole (PRILOSEC) 20 mg capsule Take 1 capsule by mouth. - sildenafil (VIAGRA) 100 mg tablet Take 100 mg by mouth at bedtime as needed. No current facility-administered medications for this visit. Supplements: none Allergies: Cephalexin, Diphenhydramine Hcl, and Escitalopram Oxalate Family Hx: Denies family history of genitourinary malignancy Social History Tobacco Use - Smoking status: Current Every Day Smoker - Smokeless tobacco: Never Used Substance Use Topics - Alcohol use: Not on file - Drug use: Not on file Review of Systems: Constitutional: No weakness, fever/chills, unexplained weight change Psychiatric: Stable mood Skin: No rashes or lesions HEENT: No blurred vision or double vision. No severe or worsening headaches. Sense of smell intact Neck: No masses or pain Chest: No shortness of breath or cough. No history of recurrent pneumonia, bronchitis, or sinustitis. CVS: No chest pains or palpatations. No history of cardiovascular disease. GI: No nausea, vomiting or abdominal pain Neurologic: No weakness or sensory changes : see above Musculoskeletal: Stable All other systems reviewed and noncontributory PE: vitals: see above General: Well masculinized, well nourished male Psych: euthymic, NAD Neuro: AANDOx3. Neck: supple, no masses, adenopath or thyromegaly CV: warm and well perfused Resp: normal effort, no excursion Chest: no lesions or gynecomastia Abdomen: soft, NT, no mass, no hepatosplenomegaly Inguinal: No lesions, adenopathy, or hernias Phallus: normal, circumcised, no lesions Meatus: orthotopic, patent, no discharge Scrotum: no lesions, normal rugae Testes: L testis and cord tender L: 18 ccs R:18 ccs Epididymides: L absent R absent Vas deferens: palpable bilaterally Varicocele: none Scrotal US: Outside Assessment: 41 year old, male with R testis pain. Complex history as noted above. He has had a bilateral vasectomy followed by bilateral epididymectomy and a right-sided spermatic cord denervation all in [place]. Plan: We discussed that the options remaining are limited. We could proceed with a repeat spermatic cord denervation in my hands but I am not able to guarantee him that this will help. He also has an elevated risk of testicular atrophy given the number of operations he has had on that side. He wants to consider this in which case we will do a cord block today. We also discussed subinguinal orchiectomy which he is not yet ready to proceed with. Also discussed pelvic floor PT CORD BLOCK: Inguinal region prepped with betadine followed with alcohol. Cord encircled with fingers at level of external ring. 10 cc of 0.25% bupivicaine and 2% lidocaine instilled into cord without difficulty. Will call in the next few days about maximal benefit and decision to go ahead with surgery. Understands that would never have a better result than the best improvement with cord block. Risks and benefits of denervation surgery discussed with 80% chance of pain improvement and 10% chance of complications, the most serious being orchiectomy, hydrocele (more content not included)... Normal [facility] Free T4on 11-24-2021 Free T4 [Mass/Vol] 1.25 ng/dL Normal 0.80-1.80 Nava gaona [place] [employer] Helper Comment on above: Performed By: #### T SH, FT4 #### [facility] [address], [place] [id number] Parathyroid Hormone, Intacto n 11-24-2021 PTH 28.92 pg/mL Normal 16.00-65.00 [facility] [employer] Helper Comment on above: Performed By: #### P TH* #### [facility] [address], [place] [id number] TSHon 11-24-2021 TSH 1.270 uIU/mL Normal 0.400-4.500 [facility] Track Rep[employer]r Helper Comment on above: Performed By: #### T SH, FT4 #### [facility] [address], [place] [id number] US Thyroidon 11-24-2021 US Thyroid HISTORY: thyroid nodule on outside MRI FINDINGS: Right Lobe: 5.2 x .17 x 1.3 cm Left Lobe: 6.6 x 2.3 x 2.3 cm Isthmus (Thickness) 7 mm Diffuse increase in thyroid volume. No suspicious nodule or mass based on ACR TI-RADS criteria. Left mid lobe 2.8 x 2.8 x 2.2 cm spongiform nodule, benign based on spongiform morphology. Unremarkable isthmus and right lobe. IMPRESSION: 1. Left lobe findings consistent with a spongiform nodule which indicates a benign process. RECOMMENDATIONS CANCER RISK (ACR TI-RADS 2018) TR1: no FNA required TR1: 0.3% TR2: no FNA required TR2: 1.5 % TR3>: 1.5 cm follow up, >2.5 cm FNA TR3: 4.8 % Follow up 1, 3, 5 years TR4:>1.0 cm follow up >1.5 cm FNA TR4: 9.1 % Follow up: 1, 2, 3 and 5 years TR5:> 0.5 cm follow up, >1.0 cm FNA TR5: 35% Annual follow up for up to 5 years Biopsy is recommended for suspicious lesions (TR3-TR5) with the above size criteria. If there are multiple nodules, the two with the highest ACR TI-RADS grades should be sampled (rather than the two largest) Interval enlargement on follow up is felt to be significant if there is a increase of 20% and 2 mm in two dimensions, or a 50% increase in volume. If the ACR TI-RAD level increases between scans, and interval scan the following year is again recommended. Report reported and signed by Chemo Garsia on 11/24/2021 1541 Normal [facility] XR Abdomen Single View (KUB) *on 11-24-2021 XR Abdomen Single View (KUB)* FINDINGS: Moderate to large volume of ascending/hepatic flexure stool. Minimal stool descending and sigmoid regions. No mass effect or free air. No evidence of bowel obstruction. Air filled non-distended small bowel right mid abdomen. Cholecystectomy and presumed appendectomy surgical clips. IMPRESSION: 1. Proximal colon stool, no obstruction. Report reported and signed by Chemo Garsia on 11/24/2021 1521 Normal [facility] CBC AUTO DIFFon 11-23-2021 BASO # 0.0 103/ul Normal 0.0-0.[address] [facility] Comment on above: Performed By: #### C BC ####[facility] Jbf[address] [place], [place] [address]Ta. Rickey Singleton Basophils/100 WBC (Bld) 0.4 % Normal 0.2-2.[address] [facility] Comment on above: Performed By: #### C BC ####[facility] Rmxvnnvgqw[address] [place], [place] [address]VrBecca Singleton EO # 0.1 103/ul Normal 0.0-0.7 [facility] Comment on above: Performed By: #### C BC ####[facility] [address]fr[address] [place] [address]Dr. Rickey Mani Eosinophils/100 WBC (Bld) 1.3 % Normal 0.9-7.0 [facility] Comment on above: Performed By: #### C BC ####[facility] Xvsegt[address] [place], [place] [address]Dr. Adriannekristy Singleton Erythrocyte distribution width (RBC) [Ratio] 12.6 % Normal 11.0-15.0 [facility] Comment on above: Performed By: #### C BC ####[facility] Mfayfgkrcl[address] [place], [place] [address]Dr. Rickey Singleton Hematocrit (Bld) [Volume fraction] 42.8 % Normal 42.0-54.0 [facility] Comment on above: Performed By: #### C BC ####[facility] Jkildwkp[address] [place], [place] [address]Dr. Adriannekristy Singleton Hemoglobin (Bld) [Mass/Vol] 14.0 g/dL Normal 14.0-18.0 [facility] Comment on above: Performed By: #### C BC ####[facility] Ktlguruls[address] [place], [place] [address]Dr. Rickey Singleton IG # 0.02 10e3/ul Normal 0.00-0.03 [facility] Comment on above: Performed By: #### C BC ####[facility] Xcencnfmjb[address] [place], [place] [address]Dr. Rickey Singleton IG % 0.3 % Normal 0.0-0.5 [facility] Comment on above: Performed By: #### C BC ####[facility] Curwphxwkp[address] [place], [place] [address]Dr. Rickey Singleton LYMPH # 2.6 103/ul Normal 1.2-3.8 [facility] Comment on above: Performed By: #### C BC ####[facility] Uxsulyesht[address] [place], [place] [address]Dr. Rickey Singleton Lymphocytes/100 WBC (Bld) 33.9 % Normal 20.5-60.[address] [facility] Comment on above: Performed By: #### C BC ####[facility] [address]rj[address] [place] [address]DrBecca Singleton MANUAL DIFF REQ NO Normal [facility] Comment on above: Performed By: #### C BC ####[facility] Numbthny[address] [place] [address]DrBecca Singleton MCH (RBC) [Entitic mass] 32.6 pg Normal 25.9-34.[address] [facility] Comment on above: Performed By: #### C BC ####[facility] Txkbkaayxa[address] [place], [place] [address]DrBecca Singleton MCHC (RBC) [Mass/Vol] 32.7 g/dL Normal 29.9-35.2 [facility] Comment on above: Performed By: #### C BC ####[facility] Hldgtjtyeb[address] [place], [place] [address]DrBecca Singleton MCV (RBC) [Entitic vol] 99.5 fL Critically high 80.0-94.[address] [facility] Comment on above: Performed By: #### C BC ####[facility] Duherqbabz[address] [place], [place] [address]DrBecca Singleton MONO # 0.7 103/ul Normal 0.3-0.[address] [facility] Comment on above: Performed By: #### C BC ####[facility] Tdohsirbhm[address] [place], [place] [address]DrBecca Singleton Monocytes/100 WBC (Bld) 8.5 % Normal 1.7-12.0 [facility] Comment on above: Performed By: #### C BC ####[facility] Dslgreerjv[address] [place], [place] [address]DrBecca Singleton NEUT # 4.3 103/ul Normal 1.4-6.5 [facility] Comment on above: Performed By: #### C BC ####[facility] Pyiyfq[address]ab[address] [place], [place] [address]DrBecca Singleton Neutrophils/100 WBC (Bld) 55.6 % Normal 43.0-75.[address] [facility] Comment on above: Performed By: #### C BC ####[facility] T[address] [place], [place] [address]Yj. Rickey Singleton Platelet mean volume (Bld) [Entitic vol] 9.7 fL Normal 9.5-13.[address] [facility] Comment on above: Performed By: #### C BC ####[facility] Rnl[address]ktdace[address] [place], [place] [address]Kr. Rickey Singleton PLT 242 103/ul Normal 150-450 [facility] Comment on above: Performed By: #### C BC ####[facility] Hkbtbqogkn9980 [place], [place] [address]Lo. Rickey Singleton RBC 4.30 106/ul Critically low 4.70-6.10 [facility] Comment on above: Performed By: #### C BC ####[facility] [address] [place] [address]Dr. Rickey Singleton WBC 7.8 103/ul Normal 4.0-11.[address] [facility] Comment on above: Performed By: #### C BC ####[facility] [address]ell[address] [place], [place] [address]Or. Rickey Singleton ECHOCARDIO M/2D COMPLETEon 0 11-23-2021 ECHOCARDIO M/2D COMPLETE Patient: GEORGES MAYS Exam Date: 11/23/2021 : 1980 Gender:M Ordering : DR SINDY CHAPA . Admission #: [id number] Family : DR LOVE TEMPLETON Order #: [id number] CLICK HERE TO VIEW EXAM ECHOCARDIOGRAM REPORT PROCEDURE: CARDIO PULMONARY ECHOCARDIO M/2D COMP INDICATIONS: TIA COMPARISON: None. DESCRIPTION: COMPLETE ECHOCARDIOGRAM Real-time transthoracic echocardiography with 2D, M-mode, spectral and color flow Doppler performed. QUALITY: Technical quality was limited. LEFT VENTRICLE: Normal chamber size. Borderline left ventricular hypertrophy. No regional wall motion abnormalities. LV EF: Normal left ventricular ejection fraction, (>55%). DIASTOLIC: Normal diastolic function. ATRIAL SEPTUM: Visually appears intact. LEFT ATRIUM: Normal chamber size. RIGHT ATRIUM: Normal chamber size. RIGHT VENTRICLE: Normal chamber size. Normal right ventricular systolic function. TRICUSPID VALVE: Normal mobility and thickness. No stenosis with trivial regurgitation. No evidence of pulmonary hypertension. RVSP 24 mmHg MITRAL VALVE: Normal mobility and thickness. No evidence of mitral valve stenosis. There is no mitral annular calcification. Trivial mitral regurgitation. AORTIC VALVE: Normal trileaflet appearance. No visible sclerosis. Normal leaflet mobility. No evidence of aortic valve stenosis. No aortic regurgitation. AORTIC ROOT: Normal diameter and appearance. Ascending aorta is normal in size. PULMONIC VALVE: Normal thickness and mobility. No stenosis. Trivial regurgitation. PERICARDIUM: No evidence of pericardial effusion. IVC: Collapses with inspirations. PLEURA: CONCLUSION: 1. Technically limited study with poor sound transmission. 2. Ventricular systolic function appears normal. 3. Normal diastolic function. 4. No significant valvular dysfunction. 5. Normal right-sided pressures. 6. No pericardial effusion. 7. The interatrial septum appears intact by color Doppler, however agitated saline study was not performed. 8. The patient appears to be in sinus rhythm during the exam. Adult Echocardiography Procedure Report Left Ventricle LVEDD (3.7 - 5.6 cm): 5.11 cm LVESD (2.2 - 4.0 cm): 3.46 cm LVIVS thickness (0.6 - 1.2 cm): 1.20 cm LVPW thickness (0.5 - 1.0 cm): 8.42 mm e': 11.80 cm/s E - e': 6.10 LVOT Area (cm2): 5.73 cm2 LVOT Diameter 2.70 cm Left Ventricular Ejection Fraction: 60 % Left Atrium LA Volume Index (2D A2C): 20.10 ml/m2 Left Atrium Systolic Dimension: 3.50 cm Left Atrium Systolic Area(A2C): 16.20 cm2 Left Atrium Systolic Volume(A2C): 33518 mm3 Mitral Valve MV E to A Ratio: 1.10 Mitral Valve A-Wave Peak Velocity: 64.70 cm/s Mitral Valve E-Wave Peak Velocity: 72.10 cm/s Deceleration Time: 193 ms Right Ventricle Aorta AO Root Diam: 3.80 cm Aortic Valve AoV Area (Peak Sagar): 3.75 cm2 Peak Velocity(Antegrade Flow): 117.00 cm/s Peak Gradient(Antegrade Flow): 5 mm[Hg] Tricuspid Valve Pulmonic Valve Peak Velocity: 95.60 cm/s Peak Gradient: 4 mm[Hg] Right Atrium Dictated by: Hemanth Puri M.D. on 11/23/2021 at 17:53 Approved by: Hemanth Puri M.D. on 11/23/2021 at 17:[address] [facility] GLYCOHEMOGLOBIN A1Con 2021 ADA RECOMMENDATION SEE BELOW Normal [facility] Comment on above: Result Comment: ADA RECOMMENDED LIMIT 4.0 - 6.0 ADA THERAPEUTIC TARGET < 7.0 ACTION SUGGESTED > 7.0 Performed By: #### A 1C ####[facility] [address] [place] [id number]. Rickey Singleton Glucose [Mass/Vol] 108 mg/dL Normal [facility] Comment on above: Performed By: #### A 1C ####[facility] Y[address] [place] [id number]. Rickey Singleton HbA1c (Bld) [Mass fraction] 5.4 % Normal 4.5-6.[address] [facility] Comment on above: Performed By: #### A 1C ####[facility] [address] [place] [id number]. Rickey Singleton LIPID PROFILEon 11-23-2021 CHOL-HDL RATIO NORM SEE BELOW Normal [facility] Comment on above: Result Comment: 3.3 - 4.4 LOW RISK 4.4 - 7.1 AVERAGE RISK 7.1 - 11.0 MODERATE RISK >11.0 HIGH RISK Performed By: #### C MP, LIPID ####[facility] [address] [place] [address]Dr. Rickey Singleton Cholesterol [Mass/Vol] 147 mg/dL Normal <=200 [facility] Comment on above: Performed By: #### C MP, LIPID ####[facility] [address]sp[address] [place] [address]Dr. Rickey Singleton Cholesterol in HDL [Mass/Vol] 55 mg/dL Normal 40-[address] [facility] Comment on above: Performed By: #### C MP, LIPID ####[facility] F[address] [place] [id number]. Riceky Singleton Cholesterol in LDL [Mass/Vol] 51.0 mg/dL Normal [facility] Comment on above: Performed By: #### C MP, LIPID ####[facility] [address] [place] [address]Dr. Rickey Singleton Cholesterol.total/Ch olesterol in HDL [Mass ratio] 2.7 {ratio} Normal [facility] Comment on above: Performed By: #### C MP, LIPID ####[facility] [address] [place] [id number]. Rickey Singleton HDL NORMAL > or = 60 mg/dl - LO W CARDIOVASCULAR RISK <40 mg/dl - HIGH CARDIOVASCULAR RISK Normal [facility] Comment on above: Performed By: #### C MP, LIPID ####[facility] [address] [place] [address]Dr. Rickey Singleton LDL CALC NORMAL SEE BELOW Normal [facility] Comment on above: Result Comment: <100 mg/dl OPTIMAL 100 - 129 mg/dl NEAR OR ABOVE OPTIMAL 130 - 159 mg/dl BORDERLINE HIGH 160 - 189 mg/dl HIGH >190 mg/dl VERY HIGH Performed By: #### C MP, LIPID ####[facility] [address]mb[address] [place] [id number]. Rickey Singleton Triglyceride [Mass/Vol] 205 mg/dL Critically high <=[address] [facility] Comment on above: Performed By: #### C MP, LIPID ####[facility] [address] [place] [id number]. Rickey Singleton VLDL CALC 41.0 mg/dL Normal [facility] Comment on above: Performed By: #### C MP, LIPID ####[facility] [address] [place] [id number]. Rickey Singleton MRI BRAIN WO CONon 2 MRI BRAIN WO CON EXAM: MRI BRAIN WO C ON HISTORY: Ataxia COMPARISON: CT of the head from 11/22/2021. TECHNIQUE: Multi plantar multisequence MRI was obtained through the head without contrast FINDINGS: The ventricles, sulci, and remaining CSF containing spaces maintain age-appropriate volume and symmetry. No hydrocephalus. No herniation. The lanza matter/white matter differentiation is maintained. No acute infarct, intracranial hemorrhage, or parenchymal mass. The central arterial flow voids and the flow voids of the major dural venous sinuses are maintained, indicative of patency. The pneumatized portions of the skull are clear. IMPRESSION: 1. No acute intracranial abnormality. Electronically authenticated by: CHEMO TAPIA Date: 2021-11-23 10:52 Normal [facility] PROF 14(COMP METB)on 022 Albumin [Mass/Vol] 3.5 g/dL Normal 3.4-5.0 [facility] Comment on above: Performed By: #### C MP, LIPID #### [facility] [address] [place] [address] Dr. Rickey Singleton Albumin/Globulin [Mass ratio] 1.2 {ratio} Normal [facility] Comment on above: Performed By: #### C MP, LIPID #### [facility] [address] [place] [address] Dr. Rickey Singleton ALP [Catalytic activity/Vol] 72 U/L Normal 46-[address] [facility] Comment on above: Performed By: #### C MP, LIPID #### [facility] [address] [place] [address] Dr. Rickey Singleton ALT [Catalytic activity/Vol] 33 U/L Normal 16-[address] [facility] Comment on above: Performed By: #### C MP, LIPID #### [facility] [address] [place] [address] Dr. Rickey Singleton Anion gap [Moles/Vol] 13.1 mmol/L Normal [facility] Comment on above: Performed By: #### C MP, LIPID #### [facility] [address] [place] [address] Dr. Rickey Singleton AST [Catalytic activity/Vol] 13 U/L Critically low 15-[address] [facility] Comment on above: Performed By: #### C MP, LIPID #### [facility] [address] [place] [address] Dr. Rickey Singleton Bilirubin [Mass/Vol] 0.3 mg/dL Normal 0.2-1.[address] [facility] Comment on above: Performed By: #### C MP, LIPID #### [facility] [address] [place] [address] [address] Rickey Singleton Calcium [Mass/Vol] 7.8 mg/dL Critically low 8.5-10.1 [facility] Comment on above: Performed By: #### C MP, LIPID #### [facility] [address] [place] [address] [address] Rickey Singleton Chloride [Moles/Vol] 105 mmol/L Normal 98-[address] [facility] Comment on above: Performed By: #### C MP, LIPID #### [facility] [address] [place] [address] [address] Rickey Singleton CO2 [Moles/Vol] 26.8 mmol/L Normal 21.0-32.0 [facility] Comment on above: Performed By: #### C MP, LIPID #### [facility] [address] [place] [address] Dr. Rickey Singleton Creatinine [Mass/Vol] 0.65 mg/dL Critically low 0.70-1.[address] [facility] Comment on above: Performed By: #### C MP, LIPID #### [facility] [address] [place] [address] Dr. Rickey Singleton EGFR-AF MONEGASQUE >60 Normal >=60 [facility] Comment on above: Performed By: #### C MP, LIPID #### [facility] [address] [place] [address] Dr. Rickey Singleton EGFR-NON AF MONEGASQUE >60 Normal >=[address] [facility] Comment on above: Performed By: #### C MP, LIPID #### [facility] [address] [place] [address] Dr. Rickey Singleton Globulin (S) [Mass/Vol] 2.8 g/dL Normal [facility] Comment on above: Performed By: #### C MP, LIPID #### [facility] [address] [place] [address] Dr. Rickey Singleton Glucose [Mass/Vol] 105 mg/dL Normal 74-106 [facility] Comment on above: Performed By: #### C MP, LIPID #### [facility] [address] [place] [address] [address] Rickey Singleton Potassium [Moles/Vol] 3.9 mmol/L Normal 3.5-5.[address] [facility] Comment on above: Performed By: #### C MP, LIPID #### [facility] [address] [place] [address] [address] Rickey Singleton Protein [Mass/Vol] 6.3 g/dL Normal 6.1-8.2 [facility] Comment on above: Performed By: #### C MP, LIPID #### [facility] [address] [place] [address] [address] Rickey Singleton Sodium [Moles/Vol] 141 mmol/L Normal 136-145 [facility] Comment on above: Performed By: #### C MP, LIPID #### [facility] [address] [place] [address] Dr. Rickey Singleton Urea nitrogen [Mass/Vol] 8.0 mg/dL Normal 7.0-18.[address] [facility] Comment on above: Performed By: #### C MP, LIPID #### [facility] [address] [place] [address] [address] Rickey Singleton Urea nitrogen/Creatinine [Mass ratio] 12.3 mg/mg Normal [facility] Comment on above: Performed By: #### C MP, LIPID #### [facility] [address] [place] [address] Dr. Rickey Singleton AMYLASEon 11-22-2021 Amylase [Catalytic activity/Vol] 53 U/L Normal 25-115 [facility] Comment on above: Performed By: #### C MP, LIPA, ESPERANZA #### [facility] [address] [place] [address] [address] Rickey Singleton CBC AUTO DIFFon 11-22-2021 BASO # 0.0 103/ul Normal 0.0-0.[address] [facility] Comment on above: Performed By: #### C BC ####[facility] [address] [place] [address]Dr. Rickey Singleton Basophils/100 WBC (Bld) 0.3 % Normal 0.2-2.0 [facility] Comment on above: Performed By: #### C BC ####[facility] [address] [place] [id number]. Rickey Singleton EO # 0.1 103/ul Normal 0.0-0.7 [facility] Comment on above: Performed By: #### C BC ####[facility] [address] [place] [address]Dr. Rickey Singleton Eosinophils/100 WBC (Bld) 0.9 % Normal 0.9-7.0 [facility] Comment on above: Performed By: #### C BC ####[facility] [address] [place], [place] [address]Dr. Rickey Singleton Erythrocyte distribution width (RBC) [Ratio] 12.6 % Normal 11.0-15.[address] [facility] Comment on above: Performed By: #### C BC ####[facility] Iryb[address]tr[address] [place], [place] [address]Dr. Rickey Singleton Hematocrit (Bld) [Volume fraction] 45.2 % Normal 42.0-54.[address] [facility] Comment on above: Performed By: #### C BC ####[facility] [address] [place], [place] [address]Dr. Rickey Singleton Hemoglobin (Bld) [Mass/Vol] 15.0 g/dL Normal 14.0-18.0 [facility] Comment on above: Performed By: #### C BC ####[facility] [address] [place], [place] [address]Dr. Rickey Singleton IG # 0.03 10e3/ul Normal 0.00-0.03 [facility] Comment on above: Performed By: #### C BC ####[facility] [address]yl[address] [place], [place] [address]Dr. Rickey Singleton IG % 0.4 % Normal 0.0-0.5 [facility] Comment on above: Performed By: #### C BC ####[facility] [address] [place], [place] [address]Dr. Rickey Singleton LYMPH # 2.4 103/ul Normal 1.2-3.8 [facility] Comment on above: Performed By: #### C BC ####[facility] [address]rs[address] [place] [id number]. Adriannekristy Singleton Lymphocytes/100 WBC (Bld) 31.3 % Normal 20.5-60.[address] [facility] Comment on above: Performed By: #### C BC ####[facility] [address] [place] [id number]. Rickey Singleton MANUAL DIFF REQ NO Normal [facility] Comment on above: Performed By: #### C BC ####[facility] Ifretlkqhz[address] [place] [id number]. Rickey Singleton MCH (RBC) [Entitic mass] 32.4 pg Normal 25.9-34.[address] [facility] Comment on above: Performed By: #### C BC ####[facility] [address] [place] [address]Dr. Rickey Singleton MCHC (RBC) [Mass/Vol] 33.2 g/dL Normal 29.9-35.2 [facility] Comment on above: Performed By: #### C BC ####[facility] [address] [place] [id number]. Rickey Singleton MCV (RBC) [Entitic vol] 97.6 fL Critically high 80.0-94.[address] [facility] Comment on above: Performed By: #### C BC ####[facility] [address] [place], [place] [address]Dr. Rickey Singleton MONO # 0.6 103/ul Normal 0.3-0.8 [facility] Comment on above: Performed By: #### C BC ####[facility] [address]jrt[address] [place] [id number]. Rickey Singleton Monocytes/100 WBC (Bld) 7.8 % Normal 1.7-12.0 [facility] Comment on above: Performed By: #### C BC ####[facility] [address] [place], [place] [address]Dr. Rickey Singleton NEUT # 4.6 103/ul Normal 1.4-6.5 [facility] Comment on above: Performed By: #### C BC ####[facility] [address]rx[address] [place], [place] [address]Um. Rickey Singleton Neutrophils/100 WBC (Bld) 59.3 % Normal 43.0-75.[address] [facility] Comment on above: Performed By: #### C BC ####[facility] [address] [place], [place] [address]Sa. Rickey Singleton Platelet mean volume (Bld) [Entitic vol] 9.6 fL Normal 9.5-13.[address] [facility] Comment on above: Performed By: #### C BC ####[facility] [address] [place] [id number]. Rickey Singleton PLT 247 103/ul Normal 150-[address] [facility] Comment on above: Performed By: #### C BC ####[facility] [address]mb[address]nd[address] [place] [id number]. Rickey Singleton RBC 4.63 106/ul Critically low 4.70-6.10 [facility] Comment on above: Performed By: #### C BC ####[facility] Cl[address]bol[address]yd34[address] [place], [place] [address]Zc. Rickey Singleton WBC 7.7 103/ul Normal 4.0-11.[address] [facility] Comment on above: Performed By: #### C BC ####[facility] H[address] [place], [place] [address]An. [address] CT STROKE HEAD WOon 11-23-19 CT STROKE HEAD WO EXAMINATION: CT STRO KE HEAD WO HISTORY: Left hemiparesis COMPARISON: None. TECHNIQUE: CT examination of the head without IV contrast. Dose reduction techniques were achieved by using automated exposure control and/or adjustment of mA and/or kV according to patient size and/or use of iterative reconstruction technique. FINDINGS: No midline shift, mass effect or intracranial hemorrhage. The mastoid air cells and visualized paranasal sinuses are clear. IMPRESSION: No acute intracranial process. Critical results were called by Dr. Merlyn Torres to Dr. Giraldo At 11/22/2021 5:52 PM EDT. Electronically authenticated by: MERLYN TORRES Date: 2021-11-22 17:55 Normal [facility] CTA HEAD WO W CONon 11-23-19 22 CTA HEAD WO W CON EXAMINATION: CTA HEA D WO W CON, CTA NECK WO W CON HISTORY: Ataxia. COMPARISON: Head CT without contrast 11/22/2021. TECHNIQUE: Following IV administration of iodinated contrast, axial CT scans of the head and neck were obtained. MPR and MIP images images were obtained. Carotid stenosis is based on NASCET criteria. Dose reduction techniques were achieved by using automated exposure control and/or adjustment of mA and/or kV according to patient size and/or use of iterative reconstruction technique. FINDINGS: CTA OF THE HEAD: No major branch occlusion or significant intracranial stenosis. No aneurysm. Dural venous sinuses are patent. Agenesis of the right sigmoid sinus is noted. CTA OF THE NECK: A 2.4 cm low attenuated nodule left thyroid lobe inferiorly is shown. No adenopathy in the neck. The visualized lungs are clear. Osseous structures are intact. Aortic arch shows no aneurysm. The great vessels of the aortic arch show no significant stenosis. Vertebral arteries show no significant stenosis or dissection. Common carotids and internal carotids show no significant stenosis or dissection. IMPRESSION: No large vessel occlusion or significant intracranial stenosis. Dural venous sinuses are patent. Agenesis of the right sigmoid sinus is noted. Carotids and vertebral arteries show no significant stenosis or dissection. A 2.4 cm low attenuated nodule in the inferior aspect of the left thyroid lobe. Please obtain a follow-up ultrasound exam on a nonemergent basis. Electronically authenticated by: JOSE A TEJADA Date: 2021-11-22 19:18 Normal [facility] Covid-19 PCR (CVDTB)on 10-28 SARS-CoV-2 (COVID-19) RNA OLGA LIDIA+probe Ql (Unsp spec) Not detected Normal NOT DETECTED [facility] Comment on above: Result Comment: When diagnostic testing is negative, the possibility of a false negative should be considered in the context of a patient's recent exposures and the presence of clinical signs and symptoms consistent with SARS-CoV-2. This test is not yet approved or cleared by the [place] Food and Drug Administration (FDA). This test was developed by [employer], [place], [place]. The performance characteristics of this test were validated by [facility]. The results are not intended to be used as the sole means for clinical diagnosis or patient management decisions. [facility] is authorized under Clinical Laboratory Improvement Amendments (CLIA) to perform high- complexity testing. This test is not yet approved or cleared by the [place] FDA. When there are no FDA-approved or cleared tests available, and other criteria are met, FDA can make tests available under an emergency access mechanism called an Emergency Use Authorization (EUA). The EUA for this test is supported by the [place] of Health and Human Service's declaration that circumstances exist to justify the emergency use of in vitro diagnostics for the detection and/or diagnosis of the virus that causes COVID-19. This EUA will remain in effect for the duration of the COVID-19 declaration justifying emergency of IVDs, unless it is terminated or revoked by the FDA (after which the test may no longer be used). Performed By: #### C VDTBH ####[facility] [id number] [id number]. Rickey Singleton LIPASEon 11-22-2021 Lipase [Catalytic activity/Vol] 61.0 U/L Critically low 73.0-393.[address] [facility] Comment on above: Performed By: #### C BRENDA BOWMANA ESPERANZA #### [facility] [address] [place] [address] Dr. Rickey Singleton PROF 14(COMP METB)on 022 Albumin [Mass/Vol] 4.3 g/dL Normal 3.4-5.0 [facility] Comment on above: Performed By: #### C GRACIE LIPA, ESPERANZA #### [facility] [address] [place] [address] Dr. Rickey Singleton Albumin/Globulin [Mass ratio] 1.3 {ratio} Normal [facility] Comment on above: Performed By: #### C GRACIE LIPA ESPERANZA #### [facility] [address] [place] [address] Dr. Rickey Singleton ALP [Catalytic activity/Vol] 80 U/L Normal 46-116 [facility] Comment on above: Performed By: #### C GRACIE LIPA, ESPERANZA #### [facility] [address] [place] [address] Dr. Rickey Singleton ALT [Catalytic activity/Vol] 40 U/L Normal 16-[address] [facility] Comment on above: Performed By: #### C RONALD BOWMAN ESPERANZA #### [facility] [address] [address] [address] Rickey Singleton Anion gap [Moles/Vol] 12.3 mmol/L Normal [facility] Comment on above: Performed By: #### C RONALD BOWMAN, ESPERANZA #### [facility] [address] [address] [address] Rickey Singleton AST [Catalytic activity/Vol] 20 U/L Normal 15-[address] [facility] Comment on above: Performed By: #### C RONALD BOWMAN, ESPERANZA #### [facility] [address] [place] [address] Dr. Rickey Singleton Bilirubin [Mass/Vol] 0.5 mg/dL Normal 0.2-1.[address] [facility] Comment on above: Performed By: #### C RONALD BOWMAN, ESPERANZA #### [facility] [address] [place] [address] Dr. Rickey Singleton Calcium [Mass/Vol] 8.2 mg/dL Critically low 8.5-10.1 [facility] Comment on above: Performed By: #### C RONALD BOWMAN, ESPERANZA #### [facility] [address] [place] [address] Dr. Rickey Singleton Chloride [Moles/Vol] 100 mmol/L Normal 98-[address] [facility] Comment on above: Performed By: #### C RONALD BOWMAN, ESPERANZA #### [facility] [address] [place] [address] Dr. Rickey Singleton CO2 [Moles/Vol] 29.2 mmol/L Normal 21.0-32.0 [facility] Comment on above: Performed By: #### C RONALD BOWMAN, ESPERANZA #### [facility] [address] [place] [address] Dr. Rickey Singleton Creatinine [Mass/Vol] 0.67 mg/dL Critically low 0.70-1.[address] [facility] Comment on above: Performed By: #### C BRENDA BOWMANA, ESPERANZA #### [facility] [address] [address] [address] Rickey Singleton EGFR-AF MONEGASQUE >60 Normal >=60 [facility] Comment on above: Performed By: #### C MP, LIPA, ESPERANZA #### [facility] [address] [address] [address] Rickey Singleton EGFR-NON AF MONEGASQUE >60 Normal >=60 [facility] Comment on above: Performed By: #### C MP, LIPA, ESPERANZA #### [facility] [address] [address] [address] Rickey Singleton Globulin (S) [Mass/Vol] 3.2 g/dL Normal [facility] Comment on above: Performed By: #### C MP, LIPA, ESPERANZA #### [facility] [address] [address] [address] Rickey Singleton Glucose [Mass/Vol] 91 mg/dL Normal 74-106 [facility] Comment on above: Performed By: #### C MP, LIPA, ESPERANZA #### [facility] [address] [address] [address] Rickey Singleton Potassium [Moles/Vol] 3.5 mmol/L Normal 3.5-5.[address] [facility] Comment on above: Performed By: #### C MP, LIPA, ESPERANZA #### [facility] [address] [address] [address] Rickey Singleton Protein [Mass/Vol] 7.5 g/dL Normal 6.1-8.2 [facility] Comment on above: Performed By: #### C MP, LIPA, ESPERANZA #### [facility] [address] [address] [address] Rickey Singleton Sodium [Moles/Vol] 138 mmol/L Normal 136-145 [facility] Comment on above: Performed By: #### C MP, LIPA, ESPERANZA #### [facility] [address] [address] [address] Rickey Singleton Urea nitrogen [Mass/Vol] 9.0 mg/dL Normal 7.0-18.[address] [facility] Comment on above: Performed By: #### C MP, LIPA, ESPERANZA #### [facility] [address] [place] [address] Dr. Rickey Singleton Urea nitrogen/Creatinine [Mass ratio] 13.4 mg/mg Normal [facility] Comment on above: Performed By: #### C MP, LIPA, ESPERANZA #### [facility] [address] [place] [address] Dr. Rickey Singleton PROTIMEon 11-22-2021 INR Coag (PPP) [Relative time] {INR} Normal [facility] Comment on above: Performed By: #### P TT, PT #### [facility] [address] [place] [address] Dr. Rickey Singleton INR GUIDELINES SEE BELOW Normal [facility] Comment on above: Result Comment: MAGDA RED INR: 2.0 - 3.0 CONDITIONS NOT LISTED BELOW 2.5 - 3.5 FOR PROSTHETIC HEART VALVE REPLACEMENT 2.5 - 3.5 RECURRENT THROMBOSIS Performed By: #### P TT, PT #### [facility] [address] [place] [address] Dr. Rickey Singleton PT Coag (PPP) [Time] 9.9 s Normal 9.0-11.6 [facility] Comment on above: Performed By: #### P TT, PT #### [facility] [address] [place] [address] Dr. Rickey Singleton PTTon 11-22-2021 aPTT Coag (Bld) [Time] 26.5 s Normal 22.3-36.[address] [facility] Comment on above: Performed By: #### P TT, PT #### [facility] [address] [place] [address] Dr. Rickey Singleton XR CHEST 1 Von 11-22-2021 XR CHEST 1 V EXAM: XR CHEST 1 V HISTORY: Nausea and vomiting, cough for 3 months. Tightness in chest. COMPARISON: 02/01/2016. TECHNIQUE: AP portable. FINDINGS: Superimposed foreign body projects over the mediastinum. Cardiomediastinal silhouette and pulmonary vascularity are within normal limits. Scattered pulmonary granulomatous calcifications. The costophrenic angles are clear. IMPRESSION: No acute cardiopulmonary disease. Electronically authenticated by: MERLYN TORRES Date: 2021-11-22 18:[address] [facility] CNOVon 11-02-2021 CNOV Office Visit (UROLLN ) GEORGES MAYS ([id number]) 1980 M Date Time Provider Department 11/02/21 1:40 PM SIM TYLER During your visit today, we recorded the following information about you: Pulse Respiration Blood pressure 92/minute 16/minute 133/69 Sim Tyler MD 11/02/2021 2:07 PM Signed [facility] [place] NEW PATIENT HISTORY AND PHYSICAL EXAM PATIENT INFO: Georges Mays 41 year old CHIEF COMPLAINT: R testis pain. HISTORY: Georges Mays is a 41 year old male who CO sharp shooting pain in the R testis for the last year. His history started a month after he underwent vasectomy (January 2021) when given the persistence of live sperm, he was done a right epididymectomy (March 10, 2021). Immediately after, he began experiencing the afore mentioned pain. He was treated with a groin nerve block which made the pain go away for a month. The pain recurred and saw a pain coordinator in [place]. He was done another nerve block in the R groin wout success. Actually, his pain got worse. He recently needed to go to ED twice. 06/08/2021 FINDINGS: The right testicle measures 4.7 x 2.9 x 2.2 cm. Left testicle measures 4.5 x 2.7 x 2.3 cm. The epididymides are reportedly surgically removed. There is a possible small right varicocele. The arterial and venous waveforms are within normal limits. IMPRESSION: * ?Unremarkable testicles without evidence of testicular torsion. Finalized by Efren Garcia MD on 10/11/2021 12:55 AM? Urinalysis (10/11/2021 1:20 AM EDT) Urinalysis (10/11/2021 1:20 AM EDT) Color YELLOW YELLOWYELLOW ? 10/11/2021 1:43 AM [facility] ? Turbidity CLEAR CLEARCLEAR ? 10/11/2021 1:43 AM [facility] ? Specific gravity >1.030 1.003 - 1.035 ? 10/11/2021 1:43 AM [facility] ? Nitrite Negative NegativeNegative ? 10/11/2021 1:43 AM [facility] ? Ph urine 6.0 5.0 - 8.5 ? 10/11/2021 1:43 AM [facility] ? Leukocyte esterase Negative NegativeNegative ? 10/11/2021 1:43 AM [facility] ? Protein Negative NegativeNegative mg/dL ? 10/11/2021 1:43 AM [facility] ? Glucose, Ur Negative NegativeNegative mg/dL ? 10/11/2021 1:43 AM [facility] ? Ketones urine Negative NegativeNegative mg/dL ? 10/11/2021 1:43 AM [facility] ? Urobilinogen 0.2 <1.1 eu/dL ? 10/11/2021 1:43 AM [facility] ? Bilirubin, urine Negative NegativeNegative ? 10/11/2021 1:43 AM [facility] ? Hemoglobin Negative NegativeNegative ? 10/11/2021 1:43 AM [facility] ? ? Location: testicle right ? Pain Character: sharp and stabbing ? Severity Scale: moderate, severe ? Duration: 1 years ? Timing: constantly ? Modifying Factors: Worsened by the evening. Worse on exertion ? Associated signs and symptoms: pain PAST MEDICAL HISTORY: No past medical history on file. PAST SURGICAL HISTORY: No past surgical history on file. FAMILY HISTORY: No family history on file. SOCIAL HISTORY: Social History Tobacco Use - Smoking status: Not on file - Smokeless tobacco: Not on file Substance Use Topics - Alcohol use: Not on file - Drug use: Not on file LABS: No results found for: CREAT No results found for: PSA MEDICATIONS: No current outpatient medications Additional data reviewed: U/A, radiology and labs REVIEW OF SYSTEMS: GENERAL: No fever, no fatigue and no weight loss. HEAD AND NECK: No headache, no blurred vision and no hearing loss. CARDIOVASCULAR: No chest pain, no palpitations and no leg edema. RESPIRATORY: No cough, wheezing and no shortness of breath. : As indicated in HPI. GI: No epigastric discomfort, no blood in stool and no changes in bowel habits. MUSCLOSKELETAL: No neck pain, no back anin and no joint pain. SKIN: No varicose veins, no rash and no abnormal itching. NEUROLOGICAL: No numbness, no seizures and no tremor. BLOOD: No ekimosis, no hematomas or no bleeding from the gums. PHYSICAL EXAM: There is no height or weight on file to calculate BMI. There were no vitals taken for this visit. GENERAL: Alert, oriented and in no distress. HEAD: Conjuctiva: no palor Sclera: no jaundice ABDOMEN: Soft, non tender with no masses or organomegaly. No CVA tenderness. HERNIA: Negative EXTREMITIES: No leg edema, No joint swelling GENITALIA: Penis:no lesions, masses, or deformities. Urethral meatus: normal size, no discharge Scrotum: no lesions, cysts, rashes. Testes : Tender R side Epididymes: Tender R side Hydroceles: None Spermatoceles: None Varicoceles: None URO REC EX Anus and perineum wnl. No hemorrhoids Sphincter tone normal, n (more content not included)... Normal [facility] Basic Metabolic Panelon 03- Anion gap [Moles/Vol] 16 mmol/L Normal 12-20 [facility] [employer] [employer] Comment on above: Result Comment: Tc ctive 08/03/2019 reference range changed. Performed By: #### B MP, CBCAD #### [facility] [address], [place] [id number] Calcium [Mass/Vol] 9.2 mg/dL Normal 8.6-10.2 [facility] [employer] Comment on above: Performed By: #### B MP, CBCAD #### [facility] [address], [place] [id number] Chloride [Moles/Vol] 106 mmol/L Normal 98-107 [facility] [place] [facility] Comment on above: Performed By: #### B MP, CBCAD #### [facility] [address], [place] [id number] CO2 [Moles/Vol] 24 mmol/L Normal 20-31 [facility] Comment on above: Performed By: #### B MP, CBCAD #### [facility] [address] [facility] [place] [id number] Creatinine [Mass/Vol] 0.7 mg/dL Normal 0.7-1.4 [facility] Comment on above: Performed By: #### B GRACIE, CBCAD #### [facility] [address] [facility] [place] [id number] eGFRAA 144 mL/min/1.73m2 Normal >60 [facility] Comment on above: Performed By: #### B GRACIE, CBCAD #### [facility] [address], [place] [id number] eGFRNAA 118 mL/min/1.73m2 Normal >60 [facility] Comment on above: Performed By: #### B GRACIE, CBCAD #### [facility] [address], [place] [id number] Glucose [Mass/Vol] 104 mg/dL High 65-99 [place] Comment on above: Result Comment: For FASTING Glucose --- ADA reference ranges: Normal 65-99 mg/dl Prediabetes 100-125 Diabetes >/= 126 Performed By: #### B GRACIE, CBCAD #### [facility] [address], [place] [id number] Potassium [Moles/Vol] 4.4 mmol/L Normal 3.5-5.5 [facility] Comment on above: Performed By: #### B GRACIE, CBCAD #### [facility] [address] [facility] [place] [id number] Sodium [Moles/Vol] 141 mmol/L Normal 135-146 [facility] Comment on above: Performed By: #### B MP, CBCAD #### [facility] [address] [facility] [place] [id number] Urea nitrogen [Mass/Vol] 13 mg/dL Normal 7-25 [facility] Comment on above: Performed By: #### B MP, CBCAD #### [facility] [address], [place] [id number] Complete Blood Count with Au to Diffon 10-12-2021 Basophils (Bld) [#/Vol] 0.04 10*3/uL Normal 0.00-0.20 [facility] Comment on above: Performed By: #### B MP, CBCAD #### [facility] [address], [place] [id number] Basophils/100 WBC (Bld) 0.7 % Normal [facility] Comment on above: Performed By: #### B MP, CBCAD #### [facility] [address], [place] [id number] Eosinophils (Bld) [#/Vol] 0.11 10*3/uL Normal 0.02-0.50 [facility] Comment on above: Performed By: #### B MP, CBCAD #### [facility] [address], [place] [id number] Eosinophils/100 WBC (Bld) 1.8 % Normal [facility] Comment on above: Performed By: #### B MP, CBCAD #### [facility] [address], [place] [id number] Erythrocyte distribution width (RBC) [Ratio] 12.5 % Normal 11.0-15.0 [facility] Comment on above: Performed By: #### B MP, CBCAD #### [facility] [address], [place] [id number] Hematocrit (Bld) [Volume fraction] 43.2 % Normal 38.5-50.0 [facility] Comment on above: Performed By: #### B MP, CBCAD #### [facility] [address], [place] [id number] Hemoglobin (Bld) [Mass/Vol] 14.2 g/dL Normal 13.0-17.1 [facility] Comment on above: Performed By: #### B MP, CBCAD #### [facility] [address], [place] [id number] Lymphocytes (Bld) [#/Vol] 1.9 10*3/uL Normal 0.9-3.9 [facility] Comment on above: Performed By: #### B MP, CBCAD #### [facility] [address], [place] [id number] Lymphocytes/100 WBC (Bld) 31.6 % Normal [facility] Comment on above: Performed By: #### B MP, CBCAD #### [facility] [address], [place] [id number] MCH (RBC) [Entitic mass] 31.8 pg Normal 27.0-33.0 [facility] Comment on above: Performed By: #### B MP, CBCAD #### [facility] [address], [place] [id number] MCHC (RBC) [Mass/Vol] 32.9 g/dL Normal 32.0-36.0 [facility] Comment on above: Performed By: #### B MP, CBCAD #### [facility] [address], [place] [id number] MCV (RBC) [Entitic vol] 97 fL Normal 80-100 [facility] Comment on above: Performed By: #### B MP, CBCAD #### [facility] [address], [place] [id number] Monocytes (Bld) [#/Vol] 0.6 10*3/uL Normal 0.2-0.9 [facility] Comment on above: Performed By: #### B MP, CBCAD #### [facility] [address], [place] [id number] Monocytes/100 WBC (Bld) 10.5 % Normal [facility] Comment on above: Performed By: #### B MP, CBCAD #### [facility] [address], [place] [id number] Neutrophils (Bld) [#/Vol] 3.3 10*3/uL Normal 1.5-7.8 [facility] Comment on above: Performed By: #### B MP, CBCAD #### [facility] [address], [place] [id number] Neutrophils/100 WBC (Bld) 55.1 % Normal [facility] Comment on above: Performed By: #### B MP, CBCAD #### [facility] [address], [place] [id number] Platelet mean volume (Bld) [Entitic vol] 10.30 fL Normal 7.50-12.50 [facility] Comment on above: Performed By: #### B MP, CBCAD #### [facility] [address], [place] [id number] Platelets (Bld) [#/Vol] 237 10*3/uL Normal 140-400 [facility] Comment on above: Performed By: #### B MP, CBCAD #### [facility] [address], [place] [id number] RBC (Bld) [#/Vol] 4.46 10*6/uL Normal 4.20-5.80 [facility] Comment on above: Performed By: #### B MP, CBCAD #### [facility] [address], [place] [id number] RDW-SD 44.8 fL Normal 37.0-50.0 [facility] Comment on above: Performed By: #### B MP, CBCAD #### [facility] [address], [place] [id number] WBC (Bld) [#/Vol] 6.1 10*3/uL Normal 3.8-11.0 [facility] Comment on above: Performed By: #### B MP, CBCAD #### [facility] [address], [place] [id number] Vital Signs Date Time Vital Sign Value Performing Clinician Dat shannon 08-28-2023 09:12050 Body height 172.7 cm Audrey SYLVESTER Work Phone: [facility] 08-28-2023 09:120500 Body mass index (BMI) [Ratio] 32.54 kg/m2 Audrey SYLVESTER Work Phone: [facility] 08-28-2023 09:120500 Body weight 97.07 kg Audrey SYLVESTER Work Phone: [facility] 08-28-2023 09:12-0500 Diastolic blood pressure 65 mm[Hg] Audrey SYLVESTER Work Phone: [facility] 08-28-2023 09:12-0500 Heart rate 72 /min Audrey SYLVESTER Work Phone: [facility] 08-28-2023 09:12-0500 Systolic blood pressure 113 mm[Hg] Audrey SYLVESTER Work Phone: [facility] 08-07-2023 15:57-0500 Body height 172.7 cm Audrey SYLVESTER Work Phone: [facility] 08-07-2023 15:57-0500 Body mass index (BMI) [Ratio] 32.54 kg/m2 Audrey SYLVESTER Work Phone: [facility] 08-07-2023 15:57-0500 Body weight 97.07 kg Audrey SYLVESTER Work Phone: [facility] 08-07-2023 15:57-0500 Diastolic blood pressure 73 mm[Hg] Audrey SYLVESTER Work Phone: [facility] 08-07-2023 15:57-0500 Heart rate 71 /min Audrey SYLVESTER Work Phone: [facility] 08-07-2023 15:57-0500 Systolic blood pressure 129 mm[Hg] Audrey SYLVESTER Work Phone: [facility] 12-19-2021 11:07-0400 Body height 172.7 cm Pacc 2 Work Phone: [facility] 12-19-2021 11:07-0400 Body weight 86.18 kg Pacc 2 Work Phone: [facility] 12-18-2021 08:41-0400 Body weight 86.18 kg Yvonne Coleman MD Work Phone: [facility] 12-18-2021 08:41-0400 Diastolic blood pressure 75 mm[Hg] Yvonne Coleman MD Work Phone: [facility] 12-18-2021 08:41-0400 Heart rate 95 /min Yvonne Coleman MD Work Phone: [facility] 12-18-2021 08:41-0400 Systolic blood pressure 129 mm[Hg] Yvonne Coleman MD Work Phone: [facility] 11-02-2021 13:39-0400 Diastolic blood pressure 69 mm[Hg] Sim Tyler MD Work Phone: [facility] 11-02-2021 13:39-0400 Heart rate 92 /min Sim Tyler MD Work Phone: [facility] 11-02-2021 13:39-0400 Respiratory rate 16 /min Sim Tyler MD Work Phone: [facility] 11-02-2021 13:39-0400 Systolic blood pressure 133 mm[Hg] Sim Tyler MD Work Phone: [facility] Encounters Encounter Date Encounter Type Care Provider Facility Start: 09-09-2023 ambulatory Eliu Mead ty:EU [facility] Start: 08-28-2023 End: 08-28-2023 Office outpatient visit 15 minutes Audrey SYLVESTER Work Phone: [facility] Comment on above: Hypogonadism in male (Primary Dx) Start: 08-21-2023 End: 08-21-2023 ambulatory TIM BENJAMIN Not Available Start: 08-20-2023 End: 08-21-2023 ambulatory AUDREY LESTER [facility] Start: 08-14-2023 End: 08-14-2023 ambulatory SANCHEZ BARBER Not Available Start: 08-13-2023 End: 08-13-2023 Emergency department patient visit LOVE TEMPLETON [facility] Start: 08-08-2023 End: 08-09-2023 ambulatory AUDREY LESTER [facility] Start: 08-07-2023 End: 08-07-2023 ambulatory AUDREY LESTER [facility] Start: 08-07-2023 End: 08-07-2023 Office outpatient visit 25 minutes Audrey SYLVESTER Work Phone: [facility] Comment on above: Erectile dysfunction , unspecified erectile dysfunction type (Primary Dx); Rash Start: 07-24-2023 End: 07-25-2023 ambulatory LOVE Barajas [facility] Not Available Start: 07-19-2023 End: 07-19-2023 ambulatory [facility] Start: 07-18-2023 End: 07-19-2023 ambulatory LOVE Barajas WONDERLY Not Available Start: 07-15-2023 End: 07-16-2023 ambulatory LOVE B WONDERLY Not Available Start: 07-03-2023 End: 07-03-2023 ambulatory LOVE Barajas WONDERLY Not Available Start: 06-06-2023 ambulatory Eliu ALVARADO Facility :[facility] Start: 05-04-2022 Patient encounter status Kalli SYLVESTER Work Phone: [facility] Start: 04-12-2022 End: 04-12-[address] LOEV Barajas WONDERLY Facility: Start: 12-29-2021 Telephone encounter Samy lynne MD Work Phone: Urology Comment on above: Post-Op Visit Start: 12-19-2021 End: 12-19-2021 Admission to establishment Pacc Main Virtual 2 Work Phone: [facility] Start: 12-19-2021 End: 12-19-2021 ambulatory Pac 2 Work Phone: Pre Anesthesia Comment on above: Preop examination (P rimary Dx); Pain in right testicle; Gastroesophageal reflux disease without esophagitis; Tobacco use Start: 12-19-2021 End: 12-19-2021 Preprocedural examination done Pac 2 Work Phone: Pre Anesthesia Start: 12-18-2021 Examination of testicle Yvonne Coleman MD Work Phone: Urology Comment on above: Testicular pain, rig ht (Primary Dx) Start: 12-18-2021 End: 12-18-2021 Patient encounter procedure Yvonne Coleman MD Work Phone: Urology Comment on above: Pain in right testic le Start: 11-22-2021 End: 11-23-[address] SINDY CHAPA Facility: Start: 11-02-2021 End: 11-02-2021 Patient encounter procedure Sim Tyler MD Work Phone: Urology Comment on above: Pain in right testic le (Primary Dx) Start: 10-30-2021 ambulatory Jennifer Flor RN C [facility] Start: 10-30-2021 Patient encounter procedure Jennifer Flor RN NURSE [employer] Comment on above: Referral Information Procedures Date Procedure Procedure Detail Performing Clinician Start: 11-23-[address] CHAITANYA CHAPA Comment on above: Performed By: #### P SAD ####[place] [id number]. Rickey Singleton Start: 05-26-2020 H/O: surgery S/P UPPP (uvulopalatopharyngopl asty) Audrey SYLVESTER Work Phone: Plan of Treatment Date Care Activity Detail Author Start: 03-14-2030 DTaP,Tdap and Td Vaccines (2 - Td or Tdap) DTaP,Tdap and Td Vaccines (2 - Td or Tdap) [facility] Start: 07-04-2025 LIPID SCREEN LIPID SCREEN [facility] Start: 08-28-2024 Adult BMI Screening Adult BMI Screen ing [facility] Start: 08-28-2024 Tobacco Screening Tobacco Screening [facility] Start: 08-07-2024 Adult BMI Screening Adult BMI Screen ing [facility] Start: 08-07-2024 Tobacco Screening Tobacco Screening [facility] Start: 03-07-2024 Tobacco Counseling Tobacco Counselin g [facility] Start: 10-02-2023 End: 10-02-2023 Patient encounter procedure 10/02/2023 2:30 PM EST Office Visit [facility] Hepatobiliary, Pancreatic & Endocrine Surgery [address] [place] [address] Saray Tellez MD [address], [address] [address] [facility]at[facility] Pancreatic [facility] Endocrine [facility] Start: 03-29-2023 COVID-19 Vaccine ( season) COVID-19 Vaccine ( season) [facility] Start: 03-29-2023 Influenza vaccination Influenza Vacc ine [facility] Start: 03-29-2022 Influenza vaccination INFLUENZ A (Season Ended) [facility] Start: 02-06-2022 COVID-19 VACCINE (3 - Booster for Moderna series) COVID-19 VACCINE (3 - Booster for Moderna series) [facility] Start: 2015 LIPID SCREEN LIPID SCREEN [facility] Start: 1999 Urine microalbumin profile DTAP,TDAP,TD (1 - Tdap) [facility] Start: 1998 Adult BMI Follow Up Plan Adult BMI Follow Up Plan [facility] Start: 1998 HEPATITIS C SCREENING HEPATITIS C SC REENING [facility] Start: 1998 HIV SCREENING HIV SCREENING [facility] Start: 1992 Adult depression screening assessment DEPRESSION SCREENING [facility] Start: 1986 PNEUMOCOCCAL (1 - PCV) PNEUMOCOCCAL (1 - PCV) [facility] Start: 1985 COVID-19 VACCINE (1) COVID-19 VACCIN E (1) [facility] End: 08-07-2024 Testosterone, Free/Total, Male Testosterone, Free/Total, Male Lab Routine Erectile dysfunction, unspecified erectile dysfunction type 1 Occurrences starting 08/07/2023 until 08/07/2024 [facility] Work Phone: Comment on above: 1 Occurrences starti ng 08/07/2023 until 08/07/2024 [facility] [place] Immunizations Immunization Date Immunization Notes Care Provider Fa cility 03-14-2020 tetanus toxoid, redu princess diphtheria toxoid, and acellular pertussis vaccine, adsorbed Audrey SYLVESTER Work Phone: [facility] Payers Date Payer Category Payer Medicaid [employer] [place] [id number] 2023-Present [phone] [address] [address] [place] [address] [id number] 2020 Medicaid [place] MEDICA[place] [facility] MEDICAID [id number] 2020-Present [phone] [address] [place] [address] Medicaid [id number] 1980 Unknown [id number] 1980 Unknown [id number] [id number] 1980 Unknown [id number] [id number] 1980 Unknown [id number] [id number] 1980 Unknown [id number] [id number] 1980 Unknown [id number] [id number] 1980 Unknown [id number] [id number] 1980 Unknown [id number] [id number] 1980 Unknown [id number] [id number] 1980 Unknown [id number] [id number] 1980 Unknown [id number] [id number] 1980 Unknown [id number] [id number] 1980 Unknown [id number] [id number] 1980 Unknown [id number] [id number] 1959 Unknown [id number] Unknown [id number] Social History Date Type Detail Facility [facility] consumption unknown [facility] Start: 1980 Sex Assigned At Not on file [facility] Start: 10-20-2021 End: 12-28-2021 Exposure to SARS-CoV-2 (event) Not sure [facility] Start: 11-02-2021 End: 03-22-2023 Tobacco smoking status MNIS Smokes tobacco daily [facility] Start: 11-02-2021 End: 03-22-2023 Tobacco use and exposure Smokeless tobacco non-user [facility] History of tobacco use Cigarette Smoker C [facility] Start: 08-15-2020 End: 11-02-2021 Cigarettes smoked current (pack per day) - Reported 0.5 [facility] Start: 12-19-2021 End: 08-28-2023 Alcohol intake Current drinker of alcohol (finding) [facility] Start: 12-19-2021 History SDOH Alcohol Comment socially - 3 drinks per week [facility] Start: 08-15-2020 End: 08-07-[address] [facility] Adolescent depressio n screening assessment 0 [facility] Start: 04-05-2023 Alcohol Comment weekly [facility] Clinical Notes 10-30-2021 to 08-28-2023 NGA Oconnor - 08/28/2023 9:15 AM NGA Holliday - 08/07/2023 4:00 PM ESTPatient InstructionsTelephone Encounter - Samy Duke MD - 12/29/2021 10:24 AM EDTPatient Instructions Note Date & Type Note Facility 08-28-2023 History of Present illness Narrative Images from the original note were not included. [address] [place] [address] [address] [facility] [address] Patient: Georges Mays Date of : 1980 Encounter Date: 08/28/2023 History of Present Illness: The patient is a 43 y.o. male, an established patient, and is here for follow-up. Please see his history below. The rash has cleared. Testosterone 08/20/23: 278.9 Testosterone 08/08/23: 189.8 He is having issues with low libido, ED, and fatigue. We discussed testosterone supplementation options and the potential risks associated with testosterone use. He wants to think over his options and will contact me with his decision. He had a recent hemoglobin and hematocrit which were normal. LFTs in April were normal. If he does want to go forward with supplementation, we will need to check a PSA. Summary of old records: Notes from me 08/07/23: Overall, he feels his voiding symptoms are stable. He recently developed a rash in the left groin/scrotum. He tried lgtt-nzf-[id number] meds but they were ineffective. He saw his PCP and was started on triamcinolone. He estimates 80% improvement in the rash with the cream but still has a an itching sensation and reports that it feels prickly. He also continues to have issues with low libido and erectile dysfunction. He takes Viagra 100 mg as needed. Sometimes it is effective and other times it is not. He estimates that it works 65-70% of the time. We will switch him to Lotrisone cream. He will call with an update. We will recheck his testosterone levels. I will notify him of the results through [employer]. If low, we will need him to come in for an appointment to discuss testosterone supplementation options Summary of old records: Notes from Dr. Short 05/03/2023: Urodynamics reviewed. He has an obstructed voiding pattern but his EMG is quiet. This suggests a bladder outlet obstruction that is not related to dysfunctional voiding. He states his urination is actually improved significantly since his cysto. 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 We discussed that if his symptoms recur, I would recommend urethral dilation before considering an outlet procedure for prostatic obstruction. He will follow up in Aug. Requests video visit. Summary of old records: ==Orchalgia -Pt has lifelong history of R testicular pain. Worsened after vasectomy. Has had cord block, cord denervation, RFA with pain MGMT, then went to [facility] and had another cord denervation. All treatments work for a few months and then his pain slowly recurs. He has complete relief with cord blocks. -not interested in orchiectomy at this time ==Urinary hesitancy, frequency, pressure, weak stream -minimal improvement with flomax, mirabegron Urinalysis today: No results for input(s): EXTPOCURCO , EXTPOCURCH , EXTPOCAPP , EXTPOCURBS , EXTPOCURBIL , EXTPOCUKET , EXTPOCUSPG , EXTPOCUHGB , EXTPOCUPRO , EXTPOCUURO , EXTPOCULEU , EXTPOCUNIT , EXTPOCUWBC , EXTPOCUBLD , EXTPOCURBC , EXTPOCUCRY , EXTPOCUBAC , EXTPOCUTREP , EXTPOCUPH in the last 72 hours. Last BUN and creatinine: Lab Results Component Value Date BUN 11 07/05/2022 Lab Results Component Value Date CREATININE 0.71 07/05/2022 Past Medical, Family, and Social History Update: The following portions of the patient's history were reviewed and updated as appropriate: allergies, current medications, past family history, past medical history, past social history, past surgical history and problem list. Past Medical History: Diagnosis Date Abnormal liver function 03/04/2023 Airway obstruction Patient denies any knowledge of this Alcohol abuse Allergic rhinitis Anxiety Arthritis Cervical stenosis of spinal canal 03/04/2023 Chronic sinusitis 10/22/2019 Daytime sleepiness 03/04/2023 Depressive disorder 03/04/2023 Epididymitis Fatty liver GERD (gastroesophageal reflux disease) HLD (hyperlipidemia) Hypocalcemia 03/04/2023 IBS (irritable bowel syndrome) Migraine monthly Obesity 05/14/2017 Orchalgia 02/09/2020 JETHRO (obstructive sleep apnea) 03/04/2023 Pain in right testicle Paroxysmal atrial tachycardia Psoriasis Staph infection right arm, [facility], early 1999s Tobacco abuse Visual impairment Glasses Vocal cord paralysis Past Surgical History: Procedure Laterality Date ADENOIDECTOMY ARTHROSCOPY KNEE Left 11/25/2019 Performed by Flash Guzman DO at [facility] ARTHROSCOPY PARTIAL LATERAL MENISCECTOMY KNEE Left 07/18/2022 Performed by Flash Guzman DO at [facility] CHOLECYSTECTOMY 2004 [facility] COLONOSCOPY CYSTECTOMY CYSTOSCOPY N/A 04/05/2023 Performed by Yvonne Short MD at [facility] EPIDIDYMECTOMY Bilateral 11/04/2020 Performed by Yvonne Souza MD at [facility] HERNIA REPAIR Abdm after gall bladder surgery NEUROLYSIS SPERMATIC CORD SUBINGUINAL Right 03/10/2021 Performed by Yvonne Souza MD at [facility] PARTIAL VASECTOMY Bilateral 02/05/2020 Performed by Yvonne Souza MD at [facility] RESECTION SUBMUCOSAL Bilateral 05/19/2020 Performed by Flash Tate MD PhD at [facility] SEPTOPLASTY N/A 05/19/2020 Performed by Flash Tate MD PhD at [facility] TONSILLECTOMY TONSILLECTOMY Bilateral 05/19/2020 Performed by Flash Tate MD PhD at [facility] UVULOPLASTY N/A 05/19/2020 Performed by Flash Tate MD PhD at [facility] Family History Problem Relation Age of Onset Dementia Father Heart disease Mother Cancer Maternal Grandmother Leukemia Maternal Grandmother Cancer Maternal Grandfather Snoring Maternal Grandfather Anesthesia problems Neg Hx Current Outpatient Medications Medication Sig Dispense Refill albuterol (PROVENTIL HFA;VENTOLIN HFA) 90 mcg/actuation inhaler Inhale 2 puffs every 4 (four) hours as needed for wheezing. alfuzosin (UroxatraL) 10 mg 24 hr tablet Take 1 tablet (10 mg total) by mouth in the morning. 30 tablet 11 clotrimazole-betamethasone (LOTRISONE) cream Apply 1 Application topically in the morning and 1 Application before bedtime. Do all this for 28 days. 45 g 0 omeprazole (PriLOSEC) 20 mg capsule Take 1 capsule (20 mg total) by mouth in the morning. sildenafiL (VIAGRA) 100 mg tablet take 1 tablet by mouth daily if needed for ERECTILE DYSFUNCTION 30 tablet 1 sucralfate (CARAFATE) 1 gram tablet Take 1 tablet (1 g total) by mouth in the morning and 1 tablet (1 g total) at noon and 1 tablet (1 g total) in the evening. 21 tablet 0 No current facility-administered medications for this visit. (All medications reviewed and updated by provider since last office visit or hospitalization) Allergies: Bupropion hcl, Trazodone, Tizanidine, Escitalopram oxalate, Keflex [cephalexin], Amoxicillin, and Benadryl [diphenhydramine hcl] Tobacco History: Social History Tobacco Use Smoking Status Every Day Packs/day: 0.50 Years: 17.00 Additional pack years: 0.00 Total pack years: 8.50 Types: Cigarettes Smokeless Tobacco Never (If patient a smoker, smoking cessation counseling offered) Social History: Social History Substance and Sexual Activity Alcohol Use Yes Alcohol/week: 6.0 - 7.0 standard drinks of alcohol Types: 6 - 7 Standard drinks or equivalent per week Comment: weekly Review of Systems: General: Negative for chills and fever. Cardiovascular: Negative for chest pain and shortness of breath. Gastrointestinal: Negative for constipation, diarrhea, nausea, and vomitting. Physical Exam: BP 113/65 Pulse 72 Ht 172.7 cm (5' 8 ) Wt 97.1 kg (214 lb) BMI 32.54 kg/m Constitutional: He appears well-developed. No distress. Pulmonary/Chest: Effort normal. No respiratory distress. Neurological: He is alert and oriented for age. Gait normal. Rectal: Prostate is smooth, soft, symmetric Nursing note and vitals reviewed. Assessment and Plan: Georges was seen today for follow-up. Diagnoses and all orders for this visit: Hypogonadism in male Problem List None He is having issues with low libido, ED, and fatigue. We discussed testosterone supplementation options and the potential risks associated with testosterone use. He wants to think over his options and will contact me with his decision. He had a recent hemoglobin and hematocrit which were normal. LFTs in April were normal. If he does want to go forward with supplementation, we will need to check a PSA. NGA OCONNOR This note was created with the assistance of a speech recognition program. While intending to generate a timely document that accurately reflects the content of the visit, no guarantee can be provided that every grammatical or spelling mistake has been or will be identified or corrected. Thank you for your understanding. NGA Oconnor 08/28/23 [id number] documented in this encounter [facility] 08-07-2023 History of Present illness Narrative Images from the original note were not included. [address] [place] [address] A [facility] [address] Patient: Georges Mays Date of : 1980 Encounter Date: 08/07/2023 History of Present Illness: The patient is a 43 y.o. male, an established patient, and is here for rash. Please see his history below Overall, he feels his voiding symptoms are stable. He recently developed a rash in the left groin/scrotum. He tried tkzr-uoi-ukxwkhg meds but they were ineffective. He saw his PCP and was started on triamcinolone. He estimates 80% improvement in the rash with the cream but still has a an itching sensation and reports that it feels prickly. He also continues to have issues with low libido and erectile dysfunction. He takes Viagra 100 mg as needed. Sometimes it is effective and other times it is not. He estimates that it works 65-70% of the time. We will switch him to Lotrisone cream. He will call with an update. We will recheck his testosterone levels. I will notify him of the results through [facility]. If low, we will need him to come in for an appointment to discuss testosterone supplementation options Summary of old records: Notes from Dr. Short 05/03/2023: Urodynamics reviewed. He has an obstructed voiding pattern but his EMG is quiet. This suggests a bladder outlet obstruction that is not related to dysfunctional voiding. He states his urination is actually improved significantly since his cysto. 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 We discussed that if his symptoms recur, I would recommend urethral dilation before considering an outlet procedure for prostatic obstruction. He will follow up in Aug. Requests video visit. Summary of old records: ==Orchalgia -Pt has lifelong history of R testicular pain. Worsened after vasectomy. Has had cord block, cord denervation, RFA with pain MGMT, then went to [facility] and had another cord denervation. All treatments work for a few months and then his pain slowly recurs. He has complete relief with cord blocks. -not interested in orchiectomy at this time ==Urinary hesitancy, frequency, pressure, weak stream -minimal improvement with flomax, mirabegron Urinalysis today: No results for input(s): EXTPOCURCO , EXTPOCURCH , EXTPOCAPP , EXTPOCURBS , EXTPOCURBIL , EXTPOCUKET , EXTPOCUSPG , EXTPOCUHGB , EXTPOCUPRO , EXTPOCUURO , EXTPOCULEU , EXTPOCUNIT , EXTPOCUWBC , EXTPOCUBLD , EXTPOCURBC , EXTPOCUCRY , EXTPOCUBAC , EXTPOCUTREP , EXTPOCUPH in the last 72 hours. Last BUN and creatinine: Lab Results Component Value Date BUN 11 07/05/2022 Lab Results Component Value Date CREATININE 0.71 07/05/2022 Past Medical, Family, and Social History Update: The following portions of the patient's history were reviewed and updated as appropriate: allergies, current medications, past family history, past medical history, past social history, past surgical history and problem list. Past Medical History: Diagnosis Date Abnormal liver function 03/04/2023 Airway obstruction Patient denies any knowledge of this Alcohol abuse Allergic rhinitis Anxiety Arthritis Cervical stenosis of spinal canal 03/04/2023 Chronic sinusitis 10/22/2019 Daytime sleepiness 03/04/2023 Depressive disorder 03/04/2023 Epididymitis Fatty liver GERD (gastroesophageal reflux disease) HLD (hyperlipidemia) Hypocalcemia 03/04/2023 IBS (irritable bowel syndrome) Migraine monthly Obesity 05/14/2017 Orchalgia 02/09/2020 JETHRO (obstructive sleep apnea) 03/04/2023 Pain in right testicle Paroxysmal atrial tachycardia Psoriasis Staph infection right arm, [facility], early Tobacco abuse Visual impairment Glasses Vocal cord paralysis Past Surgical History: Procedure Laterality Date ADENOIDECTOMY ARTHROSCOPY KNEE Left 11/25/2019 Performed by Flash Guzman DO at [facility] ARTHROSCOPY PARTIAL LATERAL MENISCECTOMY KNEE Left 07/18/2022 Performed by Flash Guzman DO at [facility] CHOLECYSTECTOMY 2004 [facility] COLONOSCOPY CYSTECTOMY CYSTOSCOPY N/A 04/05/2023 Performed by Yvonne Short MD at [facility] EPIDIDYMECTOMY Bilateral 11/04/2020 Performed by Yvonne Souza MD at [facility] HERNIA REPAIR Abdm after gall bladder surgery NEUROLYSIS SPERMATIC CORD SUBINGUINAL Right 03/10/2021 Performed by Yvonne Souza MD at [facility] PARTIAL VASECTOMY Bilateral 02/05/2020 Performed by Yvonne Souza MD at [facility] RESECTION SUBMUCOSAL Bilateral 05/19/2020 Performed by Flash Tate MD PhD at [facility] SEPTOPLASTY N/A 05/19/2020 Performed by Flash Tate MD PhD at [facility] TONSILLECTOMY TONSILLECTOMY Bilateral 05/19/2020 Performed by Flash Tate MD PhD at [facility] UVULOPLASTY N/A 05/19/2020 Performed by Flash Tate MD PhD at [facility] Family History Problem Relation Age of Onset Dementia Father Heart disease Mother Cancer Maternal Grandmother Leukemia Maternal Grandmother Cancer Maternal Grandfather Snoring Maternal Grandfather Anesthesia problems Neg Hx Current Outpatient Medications Medication Sig Dispense Refill albuterol (PROVENTIL HFA;VENTOLIN HFA) 90 mcg/actuation inhaler Inhale 2 puffs every 4 (four) hours as needed for wheezing. alfuzosin (UroxatraL) 10 mg 24 hr tablet Take 1 tablet (10 mg total) by mouth in the morning. 30 tablet 11 omeprazole (PriLOSEC) 20 mg capsule Take 1 capsule (20 mg total) by mouth in the morning. sildenafiL (VIAGRA) 100 mg tablet take 1 tablet by mouth daily if needed for ERECTILE DYSFUNCTION 30 tablet 1 clotrimazole-betamethasone (LOTRISONE) cream Apply 1 Application topically in the morning and 1 Application before bedtime. Do all this for 28 days. 45 g 0 No current facility-administered medications for this visit. (All medications reviewed and updated by provider since last office visit or hospitalization) Allergies: Bupropion hcl, Trazodone, Tizanidine, Escitalopram oxalate, Keflex [cephalexin], Amoxicillin, and Benadryl [diphenhydramine hcl] Tobacco History: Social History Tobacco Use Smoking Status Every Day Packs/day: 0.50 Years: 17.00 Additional pack years: 0.00 Total pack years: 8.50 Types: Cigarettes Smokeless Tobacco Never (If patient a smoker, smoking cessation counseling offered) Social History: Social History Substance and Sexual Activity Alcohol Use Yes Alcohol/week: 6.0 - 7.0 standard drinks of alcohol Types: 6 - 7 Standard drinks or equivalent per week Comment: weekly Review of Systems: General: Negative for chills and fever. Cardiovascular: Negative for chest pain and shortness of breath. Gastrointestinal: Negative for constipation, diarrhea, nausea, and vomitting. Physical Exam: BP 129/73 Pulse 71 Ht 172.7 cm (5' 8 ) Wt 97.1 kg (214 lb) BMI 32.54 kg/m Constitutional: He appears well-developed. No distress. Pulmonary/Chest: Effort normal. No respiratory distress. Neurological: He is alert and oriented for age. Gait normal. Genitourinary: Slight erythematous rash in the left inguinal region Nursing note and vitals reviewed. Assessment and Plan: Georges was seen today for rash. Diagnoses and all orders for this visit: Erectile dysfunction, unspecified erectile dysfunction type - Testosterone, Free/Total, Male; Future Rash Other orders - clotrimazole-betamethasone (LOTRISONE) cream; Apply 1 Application topically in the morning and 1 Application before bedtime. Do all this for 28 days. Problem List None We will switch him to Lotrisone cream. He will call with an update. We will recheck his testosterone levels. I will notify him of the results through [facility]. If low, we will need him to come in for an appointment to discuss testosterone supplementation options NGA OCONNOR This note was created with the assistance of a speech recognition program. While intending to generate a timely document that accurately reflects the content of the visit, no guarantee can be provided that every grammatical or spelling mistake has been or will be identified or corrected. Thank you for your understanding. NGA Oconnor 08/07/23 1759 documented in this encounter [facility] [employer] 08-07-2023 Instructions NGA Oconnor - 08/07/2023 4:00 PM EST Stop the triamcinolone and try Lotrisone instead. This is a combination steroid and antifungal. Try applying to the affected area twice a day for 2 weeks. Let me know if persistent. Let us recheck your testosterone. I put in the order. Make sure you go to the lab before 10:00 a.m.. I will notify you of the results through [facility]. If it is low, then we will need to get you set up for an appointment to discuss options for testosterone supplementation Audrey: [phone] (Ext [phone]) -Sat documented in this encounter [facility] 07-18-2023 Note US THYROID History: Thyroid nodule Technique: Ultrasound evaluation was performed of the thyroid gland. Comparison: Thyroid ultrasound November 24, 2021 Findings: The right lobe of the thyroid gland measures 5.1 x 1.8 x 1.3 cm. New TI-RADS 4 nodule of the right lobe measuring 0.5 x 0.3 x 0.5 cm. TI-RADS 2 nodule of the right lobe measures 0.3 x 0.3 x 0.2 cm. The left lobe of the thyroid gland measures 6.1 x 2.4 x 2.8 cm. TI-RADS 2 nodule of the left lobe measuring 3.3 x 2.2 x 3.1 cm is mildly increased in size when compared to prior examination where it measured 2.8 x 2.8 x 2.2 cm. The isthmus measures 0.5 cm. A TI-RADS 2 nodule of the isthmus measures 0.4 x 0.3 x 0.2 cm. Thyroid vascularity is within normal limits. IMPRESSION: Thyroid nodules as detailed. ACR recommendations: TI-RADS level 1: Benign: No FNA TI-RADS level 2: Not suspicious: No FNA TI-RADS level 3: Mildly suspicious: FNA if ? 2.5 cm; Follow if ? 1.5 cm at 1, 3, and 5 years. TI-RADS level 4: Moderately suspicious: FNA if ? 1.5 cm; Follow if ? 1 cm at 1, 2, 3, and 5 years. TI-RADS level 5: Highly Suspicious: FNA if ? 1 cm; Follow if ? 0.5 cm annually until 5 years. ELECTRONICALLY SIGNED BY: Dylan Lazo, DO Not Available 05-29-2023 Note PROCEDURE: US SCROTU M HISTORY: right testicular swelling and pain. History of removal of epididymides. TECHNIQUE: Ultrasound evaluation was performed of the scrotum. COMPARISON: None available FINDINGS: Right testicle measures 4.9 x 3.3 x 2.2 cm. Normal echogenicity and echotexture. No focal masses. Blood flow is identified to the right testicle. The right epididymis is not visualized. Left testicle measures 4.1 x 2.8 x 2.2 cm. Normal echogenicity and echotexture. No focal masses. Normal blood flow to the left testicle. The left epididymis is not visualized. No hydrocele. No varicocele. IMPRESSION: No testicular mass or evidence of torsion. ELECTRONICALLY SIGNED BY: Dylan Lazo, DO Not Available 12-29-2021 Miscellaneous Notes Called to check on patient postop No answer Left brief VM Samy Duke MD, PhD documented in this encounter [facility] 12-28-2021 Note HNO ID: [id number] Author: Leslie Torres APRN.BAG MENDER Service: Anesthesiology Author Type: Nurse Alarm Service Technician Type: Anesthesia Procedure Notes Filed: 12/28/2021 12:10 PM Note Text: ANESTHESIOLOGY PROCEDURE NOTE Airway General Information Procedure Start Time/Medication Administration: 12/28/2021 12:05 PM Patient location during procedure: OR Patient identity confirmed: arm band Staffing BAG MENDER: Leslie Torres APRN.BAG MENDER Performed by: BAG MENDER Indications and Patient Condition Preoxygenated: yes Patient position: sniffing Indications for airway management: anesthesia anesthesia circuit Method: asleep Final Airway Details Final airway type: supraglottic airway Number of attempts at approach: 1 Final Supraglottic Airway: IGEL Size 5 Seal Adequate: yes Airway not difficult SIGNATURE: Leslie Torres APRN.BAG MENDER PATIENT NAME: Georges Mays DATE: December 28, 2021 TIME: 12:09 PM CSN: [id number] [facility] 12-19-2021 Instructions Olga Muse PA-C - 12/19/2021 11:13 AM EDT PATIENT PREOPERATIVE INSTRUCTIONS Yvonne Coleman MD has scheduled you for your procedure at this surgery center: [facility]: [phone] --If no call by 4pm the day before surgery, please call this number. [address] [id number]. Please read below carefully for your personalized instructions. Dietary Restrictions: - No solid food after midnight. - You may have 12 ounces of clear liquids (water, clear juices such as apple juice or gatorade, carbonated beverages, clear tea, black coffee, jello) until 2 hours before scheduled arrival at facility. Medications: Unless instructed differently below, stay on all of your medications until your surgery. Approved medications to take the morning of surgery with a sip of water: Atorvastatin (Lipitor) If you take any medications for erectile dysfunction-Cialis (Tadalafil), Levitra, Staxyn (Vardenafil) Viagra (Sildenenafil please do not take these for 48 hours before surgery. If you start any new medications after today's visit, please contact the surgeon's office. Blood Thinning Medications: - Stop NSAIDS (Ibuprofen, Advil, Aleve, Motrin, Celebrex, Mobic, etc.) 7 days before surgery, as directed by your surgeon. - Stop Aspirin 7 days before surgery, as directed by your surgeon. - Stop Vitamin E, ALL multi-vitamins, herbals and dietary supplements 7 days before surgery. - You may take Tylenol (Acetaminophen) or any of your pain medications that do not contain aspirin or NSAIDS as needed. Important Reminders: - Candy, mints, and tobacco products are NOT permitted the morning of surgery. - Hearing aids, dentures and glasses may be worn the morning of surgery. - NO jewelry, body piercings, makeup, hairpins or contacts are to be worn the day of surgery. If you develop symptoms such as a fever, cold, or flu, or have other changes to your health within TWO DAYS of scheduled surgery or the morning of surgery, please contact the surgery center above. Personal Belongings: -Please have photo ID and insurance cards. -If you do not have a copy of advance directives on file with us, please bring a copy with you on the day of surgery. - Leave ALL valuables and money at home or with family members. For Outpatient Procedures: - YOU MUST HAVE A RESPONSIBLE APPLE SOLUTIONS CONSULTANT TAKE YOU HOME. A VEGETABLE WASHER OR MACHINE SANDER CANNOT BE MADE A RESPONSIBLE APPLE SOLUTIONS CONSULTANT. - We recommend that a responsible person stays with you overnight to take care of you. - You cannot stay in a hotel alone after outpatient surgery. You will not be permitted to have your surgery, if you do not have someone to take care of you. Arrival Time for Surgery: - The Surgery Center or hospital where you are having surgery will call the afternoon before surgery (or Saturday for Saturday surgery) with a scheduled arrival time. - If you have not heard by 4 pm, please contact the surgery center above. Please be aware that emergency situations arise, which may delay or change your surgical time. If this happens, we will notify you as soon as possible and regret any inconvenience. If you already have an Advance Directive, please fax a copy to [phone] or email to for it to be added to your chart. If you do not have an Advance Directive, you can find the appropriate form and more information at [email or web address]. We recommend that you complete the Advance Directive form found on the website and bring it with you the day of your surgery. It can be witnessed and scanned into your chart that day. Olga Muse PA-C documented in this encounter [facility] 12-19-2021 History and physical note PREANESTHESIA CONSULT CLINIC TELEHEALTH VISIT Patient has been identified by name and date of : Yes This is a virtual visit using Alternative video platform. It require patient-provider interaction for the medical decision making as documented below. Reason for contact: PACC visit Accompanied by: Self Scheduled Surgery: SPERMATIC CORD DENERVATION, EXCISION LESION SPERMATIC CORD, EXCISION VARICOCELE Subjective CHIEF COMPLAINT: testicular pain, right HPI: This is a 41 year old male who presents with right testicular pain for the past 10 months. Lifting heavy objects makes the pain worse. Pain was precipitated by vasectomy procedure in 01/2021. He denies dysuria and hematuria. He denies fever, chills, chest pain and SOB. ACTIVE PROBLEM LIST Gastroesophageal Reflux Disease Without Esophagitis Tobacco Use PAST MEDICAL HISTORY Diagnosis Date Gastroesophageal reflux disease without esophagitis 12/19/2021 PAST SURGICAL HISTORY Procedure Laterality Date CHOLECYSTECTOMY HX KNEE ARTHROSCOPY/SURGERY Left REPAIR ING HERNIA,5+Y/O,REDUCIBL VASECTOMY FAMILY HISTORY Problem Relation Age of Onset Anesthesia Problems No Family History Social History Tobacco Use Smoking status: Current Every Day Smoker Packs/day: 0.50 Years: 15.00 Pack years: 7.50 Types: Cigarettes Smokeless tobacco: Never Used Substance Use Topics Alcohol use: Yes Comment: socially - 3 drinks per week Drug use: Not Currently ALLERGIES Allergen Reactions Cephalexin GI Upset Diphenhydramine Hcl Other: See Comments Drowsy, sleepy Escitalopram Oxalate Unknown MEDICATIONS: Current Outpatient Medications Medication Sig atorvastatin (LIPITOR) 10 mg tablet Take 1 tablet by mouth once daily. loratadine (CLARITIN) 10 mg tablet Take 10 mg by mouth. omeprazole (PRILOSEC) 20 mg capsule Take 1 capsule by mouth. sildenafil (VIAGRA) 100 mg tablet Take 100 mg by mouth at bedtime as needed. loperamide HCl (LOPERAMIDE ORAL) Take by mouth. (Patient not taking: Reported on 12/19/2021 ) fluticasone (FLONASE) 50 mcg/actuation nasal spray Use 1 Elizabeth in the nose. (Patient not taking: Reported on 12/19/2021 ) hydrocortisone 2.5 % ointment apply to affected area OF GROIN twice a day (Patient not taking: apply to affected area OF GROIN twice a day) No current facility-administered medications for this visit. COVID VACCINATION STATUS: Fully vaccinated REVIEW OF SYSTEMS: Pain Assessment: General: No weight loss, malaise or fevers. Neuro: No history of TIA's, stroke, FLIGHT INSPECTOR tumor, impaired sensorium, hemiplegia, paraplegia or quadraplegia. No neurological symptoms or problems. Respiratory: No history of current cough or dyspnea, or pneumonia in the past 6 weeks. No history of respiratory/pulmonary symptoms or problems. +smoker Cardiovascular: Negative for Recent UT, Angina, Arrhythmia, CAD, Chest Pain, CHF, HTN, PVD, Valvular Heart Disease, DVT/PE +HLD On rx GI: Negative for Nausea, Vomiting, ETOH > 2 drinks / day +GERD on rx, +fatty liver : No history of dysuria, frequency or incontinence,, stones or chronic kidney disease Endocrine: No history of diabetes. Has not taken steroids within the past 30 days. No history of endocrinological symptoms or problems. Hematology: No history of bleeding or clotting disorder. Pt is not taking anti-coagulation or platelet medications. No history of hematological symptoms or problems. Oncology: No history of CA metastasis, chemo within 30 days, or radiotherapy within 90 days. Has not lost 10% of body wt in 6 months. No history of oncological symptoms or problems. Psych: No history of psychiatric symptoms or problems. Musculoskeletal: Negative for joint pain or swelling, back pain or muscle pain. Skin: Negative for lesions, rash and itching. Objective PHYSICAL EXAM: Ht 5' 8 (1.73m) Wt 190 lb (86.2kg) BMI 28.90 kg/(m^2). VIDEO EXAM: (if completed, performed via video enabled technology) GENERAL: alert and appropriate, in no distress, well-hydrated, well nourished and happy, smiling, interactive SKIN: no rash noted HEAD: normocephalic, no abnormality or lesion noted EYES: no injection OROPHARYNX: moist mucus membranes NECK: full ROM, no cervical LNs noted RESPIRATORY: breathing non-labored CHEST: equal chest rise with normal respiratory effort HEART: Well perfused, no cyanosis noted NEUROLOGIC: no obvious deficit Diagnostic tests reviewed for today's visit: No results found for: HBA1C Most recent labs in [facility] reviewed Most recent Echo 09/26/20 - found in [facility] Left Ventricle: Systolic function is normal with an ejection fraction of 65-70%. Left Ventricle: Normal diastolic function is present. Right Ventricle: Systolic function is normal. There is no significant valvular stenosis or regurgitation. Impression/Recommendations ASSESSMENT: Gastroesophageal reflux disease without esophagitis -controlled with Omeprazole PRN Tobacco use -smokes 0.5 ppd x 15 years METS: Climb a flight of stairs or walk up a hill (5.50 METs) Patient denies any chest pain or undue shortness of breath with the above physical activity. ASA Class: 2 ANESTHESIA FINDINGS: Intubation History: No history of difficult intubation Significant Anesthesia Considerations: None Airway Exam: General: Normal appearance Mallampati Score is CLASS I ULBT: Class I - Lower incisors can bite the upper lip above the emiliano line Neck: Normal appearance and function, Distance from hyoid to mentum during neck extension is at least 3 finger breaths Mouth: Normal tongue size and Mouth opening greater than 2 finger breaths Dentition: Intact Airway History: No abnormal airway history STOP BANG Score: Criteria: Age over 50 (41 year old) Male gender Score = 2 PLAN: This patient is optimally prepared for surgery. CONSULTS: Patient does not require consults for optimization at this time. The Following Tests/Procedures Have Been Initiated: Labs not indicated per PACC protocol, EKG not indicated per [facility] protocol Planned Anesthetic: Per anesthesia choice Instructions Given to Patient: Patient given verbal instructions and voices comprehension and compliance. Copy sent electronically via My Chart, email, or mobile device. I spent more than 0-20 minutes [id number] with the patient and over half the time was devoted to counseling and/or coordination of care. This is a virtual visit. It required patient-provider interaction for the medical decision making as documented above. SIGNATURE: Olga Muse PA-C PATIENT NAME: Georges Mays DATE: 12/19/21 TIME: 11:12 AM PAGER/CONTACT #: documented in this encounter [facility] 12-18-2021 Note HNO ID: [id number] Author: Yvonne Coleman MD Service: ? Author Type: Physician Type: Progress Notes Filed: 12/18/2021 9:22 AM Note Text: Georges Mays Referred by: Sim Tyler [address] [facility] [place] [address] 12/18/2021 CC: Testis Pain HPI: 41 year old, male presents for evaluation of testis pain on the right side. Pain has been present for 10 months. Pain is shooting pains in nature. Lifting makes the pain worse and nothing makes the pain better. Pain started after vasectomy January 2021. Had persistent motile sperm on several PVSA so then underwent epididymectomy - he thinks R side only but per US, it was bilateral. He then had a surgery where nerves were burned (right side, chart says neurolysis spermatic cord subinguinal, 02/2021) and then PVSA showed no sperm. Therapies tried: Surgeries as above Pain management Abx Anti Inflammatories Genitourinary history: Hx Mumps orchitis, trauma, or undescended testis: none Hx stone disease: none Hx UTI/prostatitis/epididimitis/STI: none ROS: Sexual frequency/libido:intact, no ED Urinary sx: none Hematuria: none No past medical history on file. No past surgical history on file. Current Outpatient Medications Medication Sig - loperamide HCl (LOPERAMIDE ORAL) Take by mouth. - atorvastatin (LIPITOR) 10 mg tablet Take 1 tablet by mouth once daily. - fluticasone (FLONASE) 50 mcg/actuation nasal spray Use 1 Elizabeth in the nose. - hydrocortisone 2.5 % ointment apply to affected area OF GROIN twice a day - loratadine (CLARITIN) 10 mg tablet Take 10 mg by mouth. - omeprazole (PRILOSEC) 20 mg capsule Take 1 capsule by mouth. - sildenafil (VIAGRA) 100 mg tablet Take 100 mg by mouth at bedtime as needed. No current facility-administered medications for this visit. Supplements: none Allergies: Cephalexin, Diphenhydramine Hcl, and Escitalopram Oxalate Family Hx: Denies family history of genitourinary malignancy Social History Tobacco Use - Smoking status: Current Every Day Smoker - Smokeless tobacco: Never Used Substance Use Topics - Alcohol use: Not on file - Drug use: Not on file Review of Systems: Constitutional: No weakness, fever/chills, unexplained weight change Psychiatric: Stable mood Skin: No rashes or lesions HEENT: No blurred vision or double vision. No severe or worsening headaches. Sense of smell intact Neck: No masses or pain Chest: No shortness of breath or cough. No history of recurrent pneumonia, bronchitis, or sinustitis. CVS: No chest pains or palpatations. No history of cardiovascular disease. GI: No nausea, vomiting or abdominal pain Neurologic: No weakness or sensory changes : see above Musculoskeletal: Stable All other systems reviewed and noncontributory PE: vitals: see above General: Well masculinized, well nourished male Psych: euthymic, NAD Neuro: AANDOx3. Neck: supple, no masses, adenopath or thyromegaly CV: warm and well perfused Resp: normal effort, no excursion Chest: no lesions or gynecomastia Abdomen: soft, NT, no mass, no hepatosplenomegaly Inguinal: No lesions, adenopathy, or hernias Phallus: normal, circumcised, no lesions Meatus: orthotopic, patent, no discharge Scrotum: no lesions, normal rugae Testes: L testis and cord tender L: 18 ccs R:18 ccs Epididymides: L absent R absent Vas deferens: palpable bilaterally Varicocele: none Scrotal US: Outside Assessment: 41 year old, male with R testis pain. Complex history as noted above. He has had a bilateral vasectomy followed by bilateral epididymectomy and a right-sided spermatic cord denervation all in [place]. Plan: We discussed that the options remaining are limited. We could proceed with a repeat spermatic cord denervation in my hands but I am not able to guarantee him that this will help. He also has an elevated risk of testicular atrophy given the number of operations he has had on that side. He wants to consider this in which case we will do a cord block today. We also discussed subinguinal orchiectomy which he is not yet ready to proceed with. Also discussed pelvic floor PT CORD BLOCK: Inguinal region prepped with betadine followed with alcohol. Cord encircled with fingers at level of external ring. 10 cc of 0.25% bupivicaine and 2% lidocaine instilled into cord without difficulty. Will call in the next few days about maximal benefit and decision to go ahead with surgery. Understands that would never have a better result than the best improvement with cord block. Risks and benefits of denervation surgery discussed with 80% chance of pain improvement and 10% chance of complications, the most serious being orchiectomy, hydrocele or worsening of pain. Patient interested to proceed if cord block eliminates pain. I saw and evaluated this patient. I discussed this patient with resident/fellow and agree with findings and plan documented in this note. Con (more content not included)... [facility] 12-18-2021 History of Present illness Narrative Georges Bryce Referred by: Sim Tyler [id number] [place] [address] 12/18/2021 CC: Testis Pain HPI: 41 year old, male presents for evaluation of testis pain on the right side. Pain has been present for 10 months. Pain is shooting pains in nature. Lifting makes the pain worse and nothing makes the pain better. Pain started after vasectomy January 2021. Had persistent motile sperm on several PVSA so then underwent epididymectomy - he thinks R side only but per US, it was bilateral. He then had a surgery where nerves were burned (right side, chart says neurolysis spermatic cord subinguinal, 02/2021) and then PVSA showed no sperm. Therapies tried: Surgeries as above Pain management Abx Anti Inflammatories Genitourinary history: Hx Mumps orchitis, trauma, or undescended testis: none Hx stone disease: none Hx UTI/prostatitis/epididimitis/STI: none ROS: Sexual frequency/libido:intact, no ED Urinary sx: none Hematuria: none No past medical history on file. No past surgical history on file. Current Outpatient Medications Medication Sig loperamide HCl (LOPERAMIDE ORAL) Take by mouth. atorvastatin (LIPITOR) 10 mg tablet Take 1 tablet by mouth once daily. fluticasone (FLONASE) 50 mcg/actuation nasal spray Use 1 Elizabeth in the nose. hydrocortisone 2.5 % ointment apply to affected area OF GROIN twice a day loratadine (CLARITIN) 10 mg tablet Take 10 mg by mouth. omeprazole (PRILOSEC) 20 mg capsule Take 1 capsule by mouth. sildenafil (VIAGRA) 100 mg tablet Take 100 mg by mouth at bedtime as needed. No current facility-administered medications for this visit. Supplements: none Allergies: Cephalexin, Diphenhydramine Hcl, and Escitalopram Oxalate Family Hx: Denies family history of genitourinary malignancy Social History Tobacco Use Smoking status: Current Every Day Smoker Smokeless tobacco: Never Used Substance Use Topics Alcohol use: Not on file Drug use: Not on file Review of Systems: Constitutional: No weakness, fever/chills, unexplained weight change Psychiatric: Stable mood Skin: No rashes or lesions HEENT: No blurred vision or double vision. No severe or worsening headaches. Sense of smell intact Neck: No masses or pain Chest: No shortness of breath or cough. No history of recurrent pneumonia, bronchitis, or sinustitis. CVS: No chest pains or palpatations. No history of cardiovascular disease. GI: No nausea, vomiting or abdominal pain Neurologic: No weakness or sensory changes : see above Musculoskeletal: Stable All other systems reviewed and noncontributory PE: vitals: see above General: Well masculinized, well nourished male Psych: euthymic, NAD Neuro: A&Ox3. Neck: supple, no masses, adenopath or thyromegaly CV: warm and well perfused Resp: normal effort, no excursion Chest: no lesions or gynecomastia Abdomen: soft, NT, no mass, no hepatosplenomegaly Inguinal: No lesions, adenopathy, or hernias Phallus: normal, circumcised, no lesions Meatus: orthotopic, patent, no discharge Scrotum: no lesions, normal rugae Testes: L testis and cord tender L: 18 ccs R:18 ccs Epididymides: L absent R absent Vas deferens: palpable bilaterally Varicocele: none Scrotal US: Outside Assessment: 41 year old, male with R testis pain. Complex history as noted above. He has had a bilateral vasectomy followed by bilateral epididymectomy and a right-sided spermatic cord denervation all in [place]. Plan: We discussed that the options remaining are limited. We could proceed with a repeat spermatic cord denervation in my hands but I am not able to guarantee him that this will help. He also has an elevated risk of testicular atrophy given the number of operations he has had on that side. He wants to consider this in which case we will do a cord block today. We also discussed subinguinal orchiectomy which he is not yet ready to proceed with. Also discussed pelvic floor PT CORD BLOCK: Inguinal region prepped with betadine followed with alcohol. Cord encircled with fingers at level of external ring. 10 cc of 0.25% bupivicaine and 2% lidocaine instilled into cord without difficulty. Will call in the next few days about maximal benefit and decision to go ahead with surgery. Understands that would never have a better result than the best improvement with cord block. Risks and benefits of denervation surgery discussed with 80% chance of pain improvement and 10% chance of complications, the most serious being orchiectomy, hydrocele or worsening of pain. Patient interested to proceed if cord block eliminates pain. I saw and evaluated this patient. I discussed this patient with resident/fellow and agree with findings and plan documented in this note. Consultation requested by Dr. Sim Tyler [address] [facility] [place] [id number] for an opinion regarding testis pain and my final recommendations will be communicated back to the requesting physician by way of shared Medical record or letter via US mail. Yvonne Coleman MD I spent a total of 40 minutes on the date of the service which included preparing to see the patient, [id number] patient care and completing clinical documentation. [facility] [facility] 11-02-2021 Note HNO ID: [id number] Author: Sim Tyler MD Service: ? Author Type: Physician Type: Progress Notes Filed: 11/02/2021 2:07 PM Note Text: [facility] UROLOGICAL [place] NEW PATIENT HISTORY AND PHYSICAL EXAM PATIENT INFO: Georges Mays 41 year old CHIEF COMPLAINT: R testis pain. HISTORY: Georges Mays is a 41 year old male who CO sharp shooting pain in the R testis for the last year. His history started a month after he underwent vasectomy (January 2021) when given the persistence of live sperm, he was done a right epididymectomy (March 10, 2021). Immediately after, he began experiencing the afore mentioned pain. He was treated with a groin nerve block which made the pain go away for a month. The pain recurred and saw a pain coordinator in [place]. He was done another nerve block in the R groin wout success. Actually, his pain got worse. He recently needed to go to ED twice. 06/08/2021 FINDINGS: The right testicle measures 4.7 x 2.9 x 2.2 cm. Left testicle measures 4.5 x 2.7 x 2.3 cm. The epididymides are reportedly surgically removed. There is a possible small right varicocele. The arterial and venous waveforms are within normal limits. IMPRESSION: * ?Unremarkable testicles without evidence of testicular torsion. Finalized by Efren Garcia MD on 10/11/2021 12:55 AM? Urinalysis (10/11/2021 1:20 AM EDT) Urinalysis (10/11/2021 1:20 AM EDT) Color YELLOW YELLOWYELLOW ? 10/11/2021 1:43 AM EDT [facility] ? Turbidity CLEAR CLEARCLEAR ? 10/11/2021 1:43 AM EDT [facility] ? Specific gravity >1.030 1.003 - 1.035 ? 10/11/2021 1:43 AM EDT [facility] ? Nitrite Negative NegativeNegative ? 10/11/2021 1:43 AM [facility] ? Ph urine 6.0 5.0 - 8.5 ? 10/11/2021 1:43 AM [facility] ? Leukocyte esterase Negative NegativeNegative ? 10/11/2021 1:43 AM [facility] ? Protein Negative NegativeNegative mg/dL ? 10/11/2021 1:43 AM [facility] ? Glucose, Ur Negative NegativeNegative mg/dL ? 10/11/2021 1:43 AM [facility] ? Ketones urine Negative NegativeNegative mg/dL ? 10/11/2021 1:43 AM [facility] ? Urobilinogen 0.2 <1.1 eu/dL ? 10/11/2021 1:43 AM [facility] ? Bilirubin, urine Negative NegativeNegative ? 10/11/2021 1:43 AM [facility] ? Hemoglobin Negative NegativeNegative ? 10/11/2021 1:43 AM [facility] ? ? Location: testicle right ? Pain Character: sharp and stabbing ? Severity Scale: moderate, severe ? Duration: 1 years ? Timing: constantly ? Modifying Factors: Worsened by the evening. Worse on exertion ? Associated signs and symptoms: pain PAST MEDICAL HISTORY: No past medical history on file. PAST SURGICAL HISTORY: No past surgical history on file. FAMILY HISTORY: No family history on file. SOCIAL HISTORY: Social History Tobacco Use - Smoking status: Not on file - Smokeless tobacco: Not on file Substance Use Topics - Alcohol use: Not on file - Drug use: Not on file LABS: No results found for: CREAT No results found for: PSA MEDICATIONS: No current outpatient medications Additional data reviewed: U/A, radiology and labs REVIEW OF SYSTEMS: GENERAL: No fever, no fatigue and no weight loss. HEAD AND NECK: No headache, no blurred vision and no hearing loss. CARDIOVASCULAR: No chest pain, no palpitations and no leg edema. RESPIRATORY: No cough, wheezing and no shortness of breath. : As indicated in HPI. GI: No epigastric discomfort, no blood in stool and no changes in bowel habits. MUSCLOSKELETAL: No neck pain, no back anin and no joint pain. SKIN: No varicose veins, no rash and no abnormal itching. NEUROLOGICAL: No numbness, no seizures and no tremor. BLOOD: No ekimosis, no hematomas or no bleeding from the gums. PHYSICAL EXAM: There is no height or weight on file to calculate BMI. There were no vitals taken for this visit. GENERAL: Alert, oriented and in no distress. HEAD: Conjuctiva: no palor Sclera: no jaundice ABDOMEN: Soft, non tender with no masses or organomegaly. No CVA tenderness. HERNIA: Negative EXTREMITIES: No leg edema, No joint swelling GENITALIA: Penis:no lesions, masses, or deformities. Urethral meatus: normal size, no discharge Scrotum: no lesions, cysts, rashes. Testes : Tender R side Epididymes: Tender R side Hydroceles: None Spermatoceles: None Varicoceles: None URO REC EX Anus and perineum wnl. No hemorrhoids Sphincter tone normal, no mass. Prostate: size (20 grams), symmetrical, nontender, w/o nodules. ASSESSMENT/PLAN : 41 year old male who CO sharp shooting pain in the R testis for the last year. His history started a month after he underwent vasectomy (January 2021 (more content not included)... [facility] 11-02-2021 History of Present illness Narrative [facility] NEW PATIENT HISTORY AND PHYSICAL EXAM PATIENT INFO: Georges Mays 41 year old CHIEF COMPLAINT: R testis pain. HISTORY: Georges Mays is a 41 year old male who CO sharp shooting pain in the R testis for the last year. His history started a month after he underwent vasectomy (January 2021) when given the persistence of live sperm, he was done a right epididymectomy (March 10, 2021). Immediately after, he began experiencing the afore mentioned pain. He was treated with a groin nerve block which made the pain go away for a month. The pain recurred and saw a pain coordinator in [place]. He was done another nerve block in the R groin wout success. Actually, his pain got worse. He recently needed to go to ED twice. 06/08/2021 FINDINGS: The right testicle measures 4.7 x 2.9 x 2.2 cm. Left testicle measures 4.5 x 2.7 x 2.3 cm. The epididymides are reportedly surgically removed. There is a possible small right varicocele. The arterial and venous waveforms are within normal limits. IMPRESSION: * Unremarkable testicles without evidence of testicular torsion. Finalized by Efren Garcia MD on 10/11/2021 12:55 AM Urinalysis (10/11/2021 1:20 AM EDT) Urinalysis (10/11/2021 1:20 AM EDT) Color YELLOW YELLOW^YELLOW 10/11/2021 1:43 AM [facility] Turbidity CLEAR CLEAR^CLEAR 10/11/2021 1:43 AM [facility] Specific gravity >1.030 1.003 - 1.035 10/11/2021 1:43 AM [facility] Nitrite Negative Negative^Negative 10/11/2021 1:43 AM [facility] Ph urine 6.0 5.0 - 8.5 10/11/2021 1:43 AM [facility] Leukocyte esterase Negative Negative^Negative 10/11/2021 1:43 AM [facility] Protein Negative Negative^Negative mg/dL 10/11/2021 1:43 AM [facility] Glucose, Ur Negative Negative^Negative mg/dL 10/11/2021 1:43 AM [facility] Ketones urine Negative Negative^Negative mg/dL 10/11/2021 1:43 AM [facility] Urobilinogen 0.2 <1.1 eu/dL 10/11/2021 1:43 AM [facility] Bilirubin, urine Negative Negative^Negative 10/11/2021 1:43 AM [facility] Hemoglobin Negative Negative^Negative 10/11/2021 1:43 AM [facility] Location: testicle right Pain Character: sharp and stabbing Severity Scale: moderate, severe Duration: 1 years Timing: constantly Modifying Factors: Worsened by the evening. Worse on exertion Associated signs and symptoms: pain PAST MEDICAL HISTORY: No past medical history on file. PAST SURGICAL HISTORY: No past surgical history on file. FAMILY HISTORY: No family history on file. SOCIAL HISTORY: Social History Tobacco Use Smoking status: Not on file Smokeless tobacco: Not on file Substance Use Topics Alcohol use: Not on file Drug use: Not on file LABS: No results found for: CREAT No results found for: PSA MEDICATIONS: No current outpatient medications Additional data reviewed: U/A, radiology and labs REVIEW OF SYSTEMS: GENERAL: No fever, no fatigue and no weight loss. HEAD & NECK: No headache, no blurred vision and no hearing loss. CARDIOVASCULAR: No chest pain, no palpitations and no leg edema. RESPIRATORY: No cough, wheezing and no shortness of breath. : As indicated in HPI. GI: No epigastric discomfort, no blood in stool and no changes in bowel habits. MUSCLOSKELETAL: No neck pain, no back anin and no joint pain. SKIN: No varicose veins, no rash and no abnormal itching. NEUROLOGICAL: No numbness, no seizures and no tremor. BLOOD: No ekimosis, no hematomas or no bleeding from the gums. PHYSICAL EXAM: There is no height or weight on file to calculate BMI. There were no vitals taken for this visit. GENERAL: Alert, oriented and in no distress. HEAD: Conjuctiva: no palor Sclera: no jaundice ABDOMEN: Soft, non tender with no masses or organomegaly. No CVA tenderness. HERNIA: Negative EXTREMITIES: No leg edema, No joint swelling GENITALIA: Penis:no lesions, masses, or deformities. Urethral meatus: normal size, no discharge Scrotum: no lesions, cysts, rashes. Testes : Tender R side Epididymes: Tender R side Hydroceles: None Spermatoceles: None Varicoceles: None URO REC EX Anus and perineum wnl. No hemorrhoids Sphincter tone normal, no mass. Prostate: size (20 grams), symmetrical, nontender, w/o nodules. ASSESSMENT/PLAN : 41 year old male who CO sharp shooting pain in the R testis for the last year. His history started a month after he underwent vasectomy (January 2021) when given the persistence of live sperm, he was done a right epididymectomy (March 10, 2021). Immediately after, he began experiencing the afore mentioned pain. He was treated with a groin nerve block which made the pain go away for a month. The pain recurred and saw a pain coordinator in [place]. He was done another nerve block in the R groin wout success. Actually, his pain got worse. He recently needed to go to ED twice. I refer pt to Dr. Yvonne Coleman to consider R testis denervation. Sim Tyler MD Medical Decision Making: Problems: Moderate: 1+ chronic illnesses with change Data: Unique test result(s) reviewed: 3+ Assessment requiring an independent historian(s) Risk: Low: Low risk from testing/treatment Medical Decision Making Level: 4 - Moderate Sim Tyler MD, PhD [facility] [employer] [facility] November 02, 2021 [id number] 1:22 PM CC: REFERRING PROVIDER: Yvonne Souza MD PRIMARY CARE PHYSICIAN: No primary care provider on file. documented in this encounter [facility] 10-30-2021 Miscellaneous Notes Patient calling with request for physician referral: Patient referred to urology Department. . Patient denies any new or worsening symptoms of which a provider is not aware: Yes. He complains of right testicle pain and swelling. He was referred last week by his doctor to see urology NOC closing was given GO TO THE EMERGENCY ROOM OR CALL 911 IF: * You develop any new symptoms * Your condition worsens * You are concerned or anxious about your condition for any other reason. If you have any questions, you can call Nurse radiation therapy technologist back. documented in this encounter [facility] Evaluation note Diagnosis Pain in right testicle- Primary Unspecified disorder of male genital organs [facility] Pain in right testicle Unspecified disorder of male genital organs [facility] Diagnosis Testicular pain, right- Primary Unspecified disorder of male genital organs Testicular pain, right Unspecified disorder of male genital organs [facility] Diagnosis Preop examination- Primary Preoperative examination, unspecified Pain in right testicle Unspecified disorder of male genital organs Gastroesophageal reflux disease without esophagitis Esophageal reflux Tobacco use Tobacco use disorder Testicular pain, right Unspecified disorder of male genital organs [facility] Diagnosis Erectile dysfunction, unspecified erectile dysfunction type- Primary Rash Rash and other nonspecific skin eruption [facility] Diagnosis Hypogonadism in male- Primary [facility]* Attachments The following attachments cannot be sent through Care Everywhere. * Androgen replacement in men (Monegasque) [facility] Reason for Referral Specialty Diagnoses / Procedures Referred By Contjoyce t Referred To Contact Urology Diagnoses Pain in right testicle Procedures CONSULT TO UROLOGY OFFICE/OUTPATIENT [facility] 60-74 MINUTES Sim Tyler MD [address] [place] [address] Yvonne Coleman MD [address] [place] [address] Referral ID Status Reason Start Date Expiration Date Visits Requested Visits Authorized [id number] Authorized PCP Requested Referral 11/02/2021 11/02/2022 1 1 Summary Purpose Family History No Family History Records FoundNo Family History Records FoundNo Family History Records FoundNo Family History Records FoundNo Family History Records FoundNo Family History Records FoundNo Family History Records FoundNo Family History Records Found Advance Directives Documents on File Type Date Recorded Patient Front Counter Attendant Expl anation Advance Directive(s) 12/20/2021 10:33 AM Additional Source Comments Source Comments (unrecognize d section and content) In the event this informatio n is protected by the Federal Confidentiality of Alcohol and Drug Abuse Patient Records regulations: The Federal rules restrict any use of the information to criminally investigate or prosecute any alcohol or drug abuse patient.[facility] the event this information is protected by the Federal Confidentiality of Alcohol and Drug Abuse Patient Records regulations: The Federal rules restrict any use of the information to criminally investigate or prosecute any alcohol or drug abuse patient.[facility] the event this information is protected by the Federal Confidentiality of Alcohol and Drug Abuse Patient Records regulations: The Federal rules restrict any use of the information to criminally investigate or prosecute any alcohol or drug abuse patient.[facility] the event this information is protected by the Federal Confidentiality of Alcohol and Drug Abuse Patient Records regulations: The Federal rules restrict any use of the information to criminally investigate or prosecute any alcohol or drug abuse patient.[facility] the event this information is protected by the Federal Confidentiality of Alcohol and Drug Abuse Patient Records regulations: The Federal rules restrict any use of the information to criminally investigate or prosecute any alcohol or drug abuse patient.[facility] the event this information is protected by the Federal Confidentiality of Alcohol and Drug Abuse Patient Records regulations: The Federal rules restrict any use of the information to criminally investigate or prosecute any alcohol or drug abuse patient.[facility] Reason for Visit (unrecogniz ed section and content) Reason Comments Referral Information Reason Comments New Patient right testicular gisela n Reason Comments Established Patient right testicular gisela n Specialty Diagnoses / Procedures Referred By Contjoyce t Referred To Contact Urology Diagnoses Pain in right testicle Procedures CONSULT TO UROLOGY OFFICE/OUTPATIENT NEW HIGH MDM 60-74 MINUTES Sim Tyler MD [address] [id number] Yvonne Coleman MD [address] [facility] [place] [address] Referral ID Status Reason Start Date Expiration Date V isits Requested Visits Authorized [id number] Closed PCP Requested Referral 11/02/2021 11/02/2022 1 1 Specialty Diagnoses / Procedures Referred By Justino salcedo Referred To Contact ANESTHESIOLOGY Diagnoses SPERMATIC CORD DENERVATION [79868] - Groin - Right EXCISION LESION SPERMATIC CORD [9362] - Right EXCISION 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 Procedures SPERMATIC CORD DENERVATION [44462] - Groin - Right EXCISION LESION SPERMATIC CORD [9362] - Right EXCISION 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 Yvonne Coleman MD [address] [place] [address] [address] [address] [place] [address] Referral ID Status Reason Start Date Expiration Date Visits Requested Visits Authorized [id number] Pending Review OON/Self Pay Override 12/19/2021 03/19/2022 1 1 Reason Comments Post-Op Visit Reason Comments Rash Reason Comments Follow-up Care Teams (unrecognized sec tion and content) Contact Center Specialist Relationship Specialty Start Date End Date Yvonne Souza MD [address] [place] [address] Referring Urology 10/26/21 Contact Center Specialist Relationship Specialty Start Date End Date Yvonne Souza MD [address] [place] [address] Referring Urology 10/26/21 Contact Center Specialist Relationship Specialty Start Date End Date Yvonne Souza MD [address] [place] [address] Referring Urology 10/26/21 Contact Center Specialist Relationship Specialty Start Date End Date Yvonne Souza MD [address] [place] [address] Referring Urology 10/26/21 Contact Center Specialist Relationship Specialty Start Date End Date Yvonne Souza MD [address] [place] [address] Referring Urology 10/26/21 Contact Center Specialist Relationship Specialty Start Date End Date Love Templeton MD [address] [place] [address] PCP - General Family Practice 12/20/21 Yvonne Souza MD [address] [place] [address] Referring Urology 10/26/21 Contact Center Specialist Relationship Specialty Start Date End Date Love Templeton MD [address] [place] [address] PCP - General Family Medicine 08/02/16 Contact Center Specialist Relationship Specialty Start Date End Date Love Templeton MD [address] [place] [facility] [place] [address] PCP - General Family Medicine 08/13/23 (unrecognized sect ion and content) No Status Records FoundNo Status Records FoundNo Status Records FoundNo Status Records FoundNo Status Records FoundNo Status Records FoundNo Status Records FoundNo Status Records Found INFORMATION SOURCE (unrecogn ized section and content) DATE CREATED AUTHOR 12/29/2021 [facility] DATE CREATED AUTHOR AUTHOR'S ORGANIZ ATION 12/30/2021 [facility] DATE CREATED AUTHOR AUTHOR'S ORGANIZ ATION 04/27/2022 [facility] DATE CREATED AUTHOR AUTHOR'S ORGANIZ ATION 05/23/2022 [facility] DATE CREATED AUTHOR AUTHOR'S ORGANIZ ATION 06/08/2023 [place] [facility] DATE CREATED AUTHOR AUTHOR'S ORGANIZ ATION 08/11/2023 [facility] DATE CREATED AUTHOR AUTHOR'S ORGANIZ ATION 08/22/2023 [facility] EPIC DATE CREATED AUTHOR AUTHOR'S ORGANIZ ATION 08/28/2023 [facility] FOR RECORDS PERTAINING TO PATIENTS WHO ARE OR HAVE BEEN ENROLLED IN A CHEMICAL DEPENDENCY/SUBSTANCEABUSE PROGRAM, SOME INFORMATION MAY BE OMITTED. This clinical summary was aggregated from multiple sources. Caution should be exercised in using it in the provision of clinical care. This summary normalizes information from multiple sources, and as a consequence, information in this document may materially change the coding, format and clinical context of patient data. In addition, data may be omitted in some cases. CLINICAL DECISIONS SHOULD BE BASED ON THE PRIMARY CLINICAL RECORDS. [employer] provides no warranty or guarantee of the accuracy or completeness of information in this document.
[2023-08-30 13:30] VITALS: BP 137/79; PULSE 74; O2SAT 99
[2023-08-30] MEDS: LIDOCAINE HCL 10 ML, SODIUM BICARBONATE 1 MEQ INJ (14:10)
--- NOTE | 2023-08-30 14:55 | SUR.PREOP ---
08/26/23 Pt instructed on procedure, date, time, and prep.
== END 2023-08-30 14:25 | disposition home or self-care (01) ==
LOC: US 13:10
PROVIDERS: Radiology Diagnostic Radiology; PCP Family Medicine; Visit Provider Otolaryngology
DX: E04.1 Nontoxic single thyroid nodule (principal)
CPT/HCPCS: 10005; 88173

== ENCOUNTER 2023-09-24 09:12 | Emergency (ER) | payer MEDICAID, SELFPAY ==
[2023-09-24] VITALS (13 sets, daily range): BP systolic 110–140; BP diastolic 58–79; PULSE 77–97; RESP 13–21; TEMP 37; O2SAT 95–98; BMI 33.7
--- NOTE | 2023-09-24 09:38 | CT_ITS ---
[address] [address] Patient Name: SREEDHAR MAYS MRN: [id number] date: 1980 Sex: M Assigned Patient Location: ER Current Patient Location: Accession/Order Number: [id number] Exam Date: 09/24/2023 09:45 Report Date: 09/24/2023 10:43 At the request of: SPRING PEÑA Procedure: CT angio head CT angiogram head and neck with contrast, 09/24/2023. HISTORY: Dizziness. Headache. COMPARISON: CT head without contrast, 09/24/2023. CT angiogram head and neck, 11/22/2021. TECHNIQUE: Postcontrast axial CTA angiogram images obtained through the head and neck. Reconstructed MIP images obtained in the axial, sagittal, and coronal planes. Carotid stenosis measured according to NASCET criteria. Dose reduction techniques were achieved by using automated exposure control and/or adjustment of mA and/or kV according to patient size and/or use of iterative reconstruction technique. FINDINGS: CTA BRAIN: The distal internal carotid arteries are normal in caliber. Anterior cerebral arteries are normal. Middle cerebral arteries are normal in caliber. Distal vertebral arteries are normal in caliber. Basilar artery normal. Cerebellar arteries are patent. Posterior cerebral arteries normal. No proximal arterial occlusion. No aneurysm. No vascular malformation. Dural venous sinuses are patent. CTA NECK: Common carotid arteries normal in caliber. No stenosis of the carotid bifurcations. Internal carotid arteries normal in caliber. Vertebral arteries are normal. No carotid or vertebral artery stenosis in the neck. No acute dissection. No lymphadenopathy in the neck. There is a large heterogeneous solid nodule inferiorly in the left lobe of the thyroid measuring 2.5 x 3.0 cm in cross-section. This lesion is stable. CT/CT angio head IMPRESSION: 1. Normal CT angiogram of the brain. 2. Normal CTA of the neck. No carotid or vertebral artery stenosis. No dissection. 3. There is a solid heterogeneously enhancing nodule inferiorly in the left lobe of the thyroid measuring approximately 2.5 x 3.0 cm that appears to be stable in size. Electronically authenticated by: JIN MAHARAJ Date: 09/24/2023 10:43
--- NOTE | 2023-09-24 09:38 | ECG_ITS ---
[facility] Test Date: 2023-09-24 Pat Name: SREEDHAR MAYS Department: Room: - Gender: Male Dialysis Technician: : 1980 Requested By: Order Number: [id number] Reading MD: WILLY LEI Measurements Intervals [place] Rate: 82 P: 45 MA: 138 QRS: 36 QRSD: 94 T: 23 QT: 356 QTc: 394 Interpretive Statements 1100 Sinus rhythm 2440 Incomplete right bundle branch block 4068 Nonspecific Twave abnormality 8102 Low QRS voltage in chest leads 9130 borderline ECG Electronically Signed On 09-24-2023 22:54:11 EST by WILLY LEI
--- NOTE | 2023-09-24 09:38 | XR_ITS ---
The [address] [address] Patient Name: SREEDHAR MAYS MRN: [id number] date: 1980 Sex: M Assigned Patient Location: ER Current Patient Location: ER Accession/Order Number: [id number] Exam Date: 09/24/2023 09:55 Report Date: 09/24/2023 10:11 At the request of: SPRING PEÑA Procedure: XR chest 2V EXAMINATION: XR chest 2V HISTORY: cva, dizzy COMPARISON: 11/22/2021 TECHNIQUE: PA and lateral FINDINGS: LUNGS: No significant pulmonary parenchymal abnormalities. VASCULATURE: No increased pulmonary vasculature. PLEURA: No pneumothorax, effusion, or pleural thickening. CARDIAC: No cardiomegaly or cardiac silhouette abnormality. MEDIASTINUM: No visible mass or adenopathy. BONES: No fracture or visible bone lesion. OTHER: Negative. XR/XR chest 2V IMPRESSION: No acute cardiopulmonary process Electronically authenticated by: ANAHI NETTLES Date: 09/24/2023 10:11
--- NOTE | 2023-09-24 09:38 | CT_ITS ---
The [address] [address] Patient Name: SREEDHAR MAYS MRN: [id number] date: 1980 Sex: M Assigned Patient Location: ER Current Patient Location: ER Accession/Order Number: [id number] Exam Date: 09/24/2023 09:45 Report Date: 09/24/2023 10:10 At the request of: SPRING PEÑA Procedure: CT stroke head/brain wo con EXAM: CT stroke head/brain wo con HISTORY: cva, left side weakness since 4pm yesterday COMPARISON: MR brain for 2021, CT head 11/22/2021. TECHNIQUE: Axial noncontrast CT imaging of the head was performed with coronal and sagittal reformats. FINDINGS: Calvarium/skull base: No evidence of acute fracture or destructive lesion. Mastoids and middle ears demonstrate no substantial mucosal disease. Paranasal sinuses: No air fluid levels. Brain: No acute intracranial hemorrhage. No acute large vascular territory infarct. No mass lesion or mass effect. No hydrocephalus. CT/CT stroke head/brain wo con IMPRESSION: No acute large vascular territory infarct or acute intracranial hemorrhage visible by CT. If there is ongoing clinical concern for acute ischemia recommend MRI brain for further evaluation. Electronically authenticated by: HELADIO KEYS Date: 09/24/2023 10:10
--- NOTE | 2023-09-24 09:38 | CT_ITS ---
[address] [address] Patient Name: SREEDHAR MAYS MRN: [id number] date: 1980 Sex: M Assigned Patient Location: ER Current Patient Location: Accession/Order Number: [id number] Exam Date: 09/24/2023 09:45 Report Date: 09/24/2023 10:43 At the request of: SPRING PEÑA Procedure: CT angio neck CT angiogram head and neck with contrast, 09/24/2023. HISTORY: Dizziness. Headache. COMPARISON: CT head without contrast, 09/24/2023. CT angiogram head and neck, 11/22/2021. TECHNIQUE: Postcontrast axial CTA angiogram images obtained through the head and neck. Reconstructed MIP images obtained in the axial, sagittal, and coronal planes. Carotid stenosis measured according to NASCET criteria. Dose reduction techniques were achieved by using automated exposure control and/or adjustment of mA and/or kV according to patient size and/or use of iterative reconstruction technique. FINDINGS: CTA BRAIN: The distal internal carotid arteries are normal in caliber. Anterior cerebral arteries are normal. Middle cerebral arteries are normal in caliber. Distal vertebral arteries are normal in caliber. Basilar artery normal. Cerebellar arteries are patent. Posterior cerebral arteries normal. No proximal arterial occlusion. No aneurysm. No vascular malformation. Dural venous sinuses are patent. CTA NECK: Common carotid arteries normal in caliber. No stenosis of the carotid bifurcations. Internal carotid arteries normal in caliber. Vertebral arteries are normal. No carotid or vertebral artery stenosis in the neck. No acute dissection. No lymphadenopathy in the neck. There is a large heterogeneous solid nodule inferiorly in the left lobe of the thyroid measuring 2.5 x 3.0 cm in cross-section. This lesion is stable. CT/CT angio neck IMPRESSION: 1. Normal CT angiogram of the brain. 2. Normal CTA of the neck. No carotid or vertebral artery stenosis. No dissection. 3. There is a solid heterogeneously enhancing nodule inferiorly in the left lobe of the thyroid measuring approximately 2.5 x 3.0 cm that appears to be stable in size. Electronically authenticated by: JIN MAHARAJ Date: 09/24/2023 10:43
--- OUTSIDE RECORDS SUMMARY | 2023-09-24 09:40 | XMS_ITS | CCD ---
Author Name Unknown Address [address] [place] [address] Organization [facility] Care Team Providers Care Cigar Roller Name Role Phone Libby HERNANDEZ, Yvonne Ashley Unavailable Love Templeton MD Primary Care Provider DR ISNDY CHAPA Consulting Unavailable YUMIKO, DR LISANDRO Johnson Admitting Unavailable YOKASTA, DR LOVE Barajas Primary Care Unavailable YUMIKO, DR LISANDRO Johnson Attending Unavailable YUMIKO, DR LISANDRO Johnson Consulting Unavailable HAY, DR APPLE Consulting Unavailable MARKER, DR TOMAS Consulting Unavailable MERLYN TORRES Consulting Unavailable BJORN JEFFERSON Consulting Unavailable JOSE A TEJADA Consulting Unavailable YOKASTA, DR LOVE Barajas Primary Care Unavailable MOJGAN GRIMM Attending Unavailable MOJGAN GRIMM Consulting Unavailable MOJGAN GRIMM Admitting Unavailable Eliu ALVARADO Attending Unavailable Love Templeton MD Primary Care Provider LOVE TEMPLETON Attending Unavailable SANCHEZ BARBER Attending Unavailable TIM BENJAMIN Attending Unavailable LOVE TEMPLETON Referring Unavailable WONDERLY, LOVE Barajas Attending Unavailable WONDERLY, LOVE Barajas Referring Unavailable WONDERLY, LOVE Barajas Referring Unavailable AUDREY PADRON I Referring Unavailable WONDERLY, LOVE Barajas Primary Care Unavailable WONDERROGER, LOVE Barajas Primary Care Unavailable JUAN KELLEY Attending Unavailable AUDREY PADRON I Referring Unavailable WONDERLOVE DURAN Primary Care Unavailable Love Templeton MD Primary Care Provider AUDREY PADRON I Attending Unavailable WONDERLY, LOVE Barajas Referring Unavailable WONDERLY, LOVE Barajas Primary Care Unavailable AUDREY PADRON I Attending Unavailable WONDERROGER, LOVE Barajas Referring Unavailable WONDERLY, LOVE Barajas Primary Care Unavailable STEVE ROLON Attending Unavailable WONDERLOVE DURAN Referring Unavailable WONDERLOVE DURAN Primary Care Unavailable Allergies Allergy Classification Reported Allergen(s) Allergy Type Date of Onset Reaction(s) Facility (12 sources) Cephalexin; Translations: [CEPHALEXIN] Drug Allergy 6 GI Upset, GI Disturbance [facility] (12 sources) diphenhydrAMINE; Translations: [DIPHENHYDRAMINE HCL] Drug Allergy 0 Other: See Comments, Dizziness [facility] (12 sources) Escitalopram; Translations: [ESCITALOPRAM OXALATE] Drug Allergy 3 Unknown [facility] (1 source) diphenhydrAMINE Drug Allergy [facility] (7 sources) Amoxicillin; Translations: [AMOXICILLIN] Drug Allergy 2 GI Disturbance [facility] (7 sources) buPROPion; Translations: [BUPROPION HCL] Drug Allergy 2 Other (See Comments) [facility] (7 sources) tiZANidine; Translations: [TIZANIDINE] Drug Allergy 2 [facility] [employer] [facility] (7 sources) traZODone; Translations: [TRAZODONE] Drug Allergy 2 Confusion [facility] Medications Current Medications Medication Drug Class(es) Dates Sig (Normalized) Sig (Original) [id number] 200 actuat albuterol 0.09 mg/actuat metered dose inhaler (5 sources) beta2-Adrenergic Agonist Start: 04-12-2022 take 2 puff(s) by inhalation every four hours as needed for wheezing albuterol (PROVENTIL HFA;VENTOLIN HFA) 90 mcg/actuation inhaler Inhale 2 puffs every 4 (four) hours as needed for wheezing. 0 04/12/2022 Active 24 hr alfuzosin hydrochloride 10 mg extended release oral tablet (5 sources) alpha-Adrenergic Lucina Start: 01-09-2023 take 1 tablet by mouth every twenty-four hours in the morning alfuzosin (UroxatraL) 10 mg 24 hr tablet Take 1 tablet (10 mg total) by mouth in the morning. 30 tablet 11 01/09/2023 Active betamethasone 0.5 mg/ml / clotrimazole 10 mg/ml topical cream (3 sources) Azole Antifungal, Corticosteroid Start: 08-07-2023 End: 09-04-2023 clotrimazole-beta methasone (LOTRISONE) cream Apply 1 Application topically in the morning and 1 Application before bedtime. Do all this for 28 days. 45 g 0 08/07/2023 09/04/2023 Active omeprazole 20 mg delayed release oral capsule (10 sources) Proton Pump Inhibitor Start: 10-03-2022 take 1 capsule by mouth in the morning omeprazole (PriLOSEC) 20 mg capsule Take 1 capsule (20 mg total) by mouth in the morning. 0 10/03/2022 Active Start: 06-04-2016 omeprazole ([place] ILOSEC) 20 mg capsule Take 1 capsule by mouth. 0 06/04/2016 Active Comment on above: Take 1 capsule by mo [facility]. sildenafil 100 mg oral tablet (10 sources) Phosphodiesterase 5 Inhibitor Start: 06-04-20 23 take 1 tablet by mouth once daily sildenafiL (VIAGRA) 100 mg tablet take 1 tablet by mouth daily if needed for ERECTILE DYSFUNCTION 30 tablet 1 06/04/2023 Active Start: 07-07-2021 take 1 tablet by surinder every twenty-four hours as needed sildenafil (VIAGRA) 100 mg tablet Take 100 mg by mouth at bedtime as needed. 0 07/07/2021 Active Comment on above: Take 100 mg by mouth at bedtime as needed. sucralfate 1000 mg oral tablet (4 sources) Aluminum Complex Start: 08-13-2023 sucralfate (CARAFATE) 1 gram tablet Take 1 tablet (1 g total) by mouth in the morning and 1 tablet (1 g total) at noon and 1 tablet (1 g total) in the evening. 21 tablet 0 08/13/2023 Active 60 actuat testosterone 20.25 mg/actuat topical gel (3 sources) Androgen Start: 09-02-2023 testosterone (AndroGeL) 20.25 mg/1.25 gram (1.62 %) gel in metered-dose pump Indications: Low testosterone in male Place 2 Act (40.5 mg total) on the skin in the morning. 75 g 3 09/02/2023 Active Completed/Discontinued Medications Medication Drug Class(es) Dates Sig (Normalized) Sig (Original) atorvastatin 10 mg oral tablet (5 sources) HMG-CoA Reductase Inhibitor Start: 10-06-2021 take 1 tablet by mouth once daily atorvastatin (LIPITOR) 10 mg tablet Take 1 tablet by mouth once daily. 0 10/06/2021 Active Comment on above: Take 1 tablet by [facility] once daily. fluticasone propionate 0.05 mg/actuat metered dose nasal spray (4 sources) Corticosteroid Start: 01-20-2021 fluticasone (FLONASE) 50 mcg/actuation nasal spray Use 1 [place] in the nose. 0 01/20/2021 Active Comment on above: Use 1 [place] in the n ose. hydrocortisone 0.025 mg/mg [...] INFARCTION UNSPECIFIED] Onset: 2 Chronic Anxiety disorders (5 sources) Anxiety; Translations: [Anxiety disorder, unspecified] Onset: 7 12-13-2016 Chronic Cardiac dysrhythmias (5 sources) Atrial paroxysmal tachycardia; Translations: [PAT (paroxysmal atrial tachycardia)] Onset: 1 05-04-2022 Chronic Disorders of lipid metabolism (6 sources) Pure hypercholesterolemia, unspecified; Translations: [Hyperlipidemia] Onset: 7 12-07-2020 Chronic Esophageal disorders (4 sources) Gastroesophageal reflux disease without esophagitis; Translations: [Gastro-esophageal reflux disease without esophagitis] Onset: 2 Chronic Gastritis and duodenitis (1 source) Gastritis, unspecified, with bleeding; Translations: [Gastritis, unspecified, with bleeding] Onset: 4 Episodic Headache; including migraine (5 sources) Migraine; Translations: [Migraine, unspecified, not intractable, without status migrainosus] Onset: 7 12-13-2016 Chronic Headache; including migraine (1 source) Headache; including migraine; Translations: [HEADACHE UNSPECIFIED] Onset: 2 Mood disorders (5 sources) Depressive disorder; Translations: [Depression] Onset: 7 12-13-2016 Chronic Other circulatory disease (1 source) Other specified symptoms and signs involving the circulatory and respiratory systems; Translations: [Other specified symptoms and signs involving the circulatory and respiratory systems] Onset: 3 Episodic Other endocrine disorders (1 source) Male hypogonadism; Translations: [Testicular hypofunction] 08-28-2023 Chronic Other gastrointestinal disorders (5 sources) Irritable bowel syndrome; Translations: [Irritable bowel syndrome without diarrhea] Onset: 7 12-13-2016 Chronic Other male genital disorders (8 sources) Male erectile dysfunction, unspecified; Translations: [Impotence of organic origin] Onset: 1 08-07-2023 Chronic Other male genital disorders (4 sources) Pain of right testicle; Translations: [Right testicular pain] Episodic Other nutritional; endocrine; and metabolic disorders (1 source) Hypocalcemia; Translations: [HYPOCALCEMIA] Onset: 2 Chronic Other nutritional; endocrine; and metabolic disorders (5 sources) Body mass index 30+ - obesity; Translations: [Obesity, unspecified] Onset: 1 12-07-2020 Chronic Other screening for suspected conditions (not mental disorders or infectious disease) (1 source) Decreased testosterone level ; Translations: [Other specified abnormal findings of blood chemistry] 09-02-2023 Episodic Other skin disorders (1 source) Eruption; Translations: [Rash and other nonspecific skin eruption] 08-07-2023 Episodic Residual codes; unclassified (3 sources) Tobacco use and exposure - finding; Translations: [Tobacco use] Onset: 2 Episodic Substance-related disorders (6 sources) Nicotine dependence, cigarettes, uncomplicated; Translations: [Smoker] Onset: 7 12-07-2020 Chronic Thyroid disorders (2 sources) Nontoxic single thyroid nodule; Translations: [NONTOXIC SINGLE THYROID NODULE] Onset: 2 Chronic Unclassified (1 source) CONTACT W/AND (SUSP) EXPOS COVID-19; Translations: [CONTACT W/AND (SUSP) EXPOS COVID-19] Onset: 2 Unclassified (3 sources) COUGH, UNSPECIFIED; Translations: [COUGH, UNSPECIFIED] Onset: 2 Unclassified (1 source) GI Problem Onset: 4 Unclassified (1 source) Abdominal Pain, Coffee Ground Emesis Onset: 4 Unclassified (1 source) Rash Onset: 4 Past or Other Problems Problem Classification Problem Date Documented Da te Episodic/Chronic Abdominal pain (10 sources) Right inguinal pain; Translations: [Right lower quadrant pain] Onset: 02-03-2013 04-08-2020 Episodic Diseases of mouth; excluding dental (5 sources) Acquired anomaly of uvula; Translations: [Other lesions of oral mucosa] Onset: 03-28-2017 03-28-2017 Episodic Genitourinary symptoms and ill-defined conditions (10 sources) Delay when starting to pass urine; Translations: [Hesitancy of micturition] Onset: 01-20-2021 03-14-2023 Episodic Mood disorders (5 sources) Mood disorders Onset: 06-09-2020 06-09-2020 Other gastrointestinal disorders (5 sources) Diarrhea; Translations: [Diarrhea, unspecified] Onset: 02-03-2013 02-14-2021 Episodic Other gastrointestinal disorders (5 sources) Heartburn; Translations: [Heartburn] Onset: 02-03-2013 02-14-2021 Episodic Other lower respiratory disease (5 sources) Snoring; Translations: [Snoring] Onset: 12-19-2016 12-19-2016 Episodic Other lower respiratory disease (10 sources) Apnea; Translations: [Apnea, not elsewhere classified] Onset: 12-19-2016 Resolved: 03-28-2017 03-16-2020 Episodic Other lower respiratory disease (5 sources) Dyspnea; Translations: [Dyspnea, unspecified] Onset: 08-02-2016 Resolved: 12-07-2020 12-07-2020 Episodic Other lower respiratory disease (5 sources) Cough; Translations: [Cough] Onset: 08-02-2016 Resolved: 12-07-2020 12-07-2020 Episodic Other male genital disorders (5 sources) Pain in testicle; Translations: [Testicular pain, unspecified] Onset: 02-09-2020 02-09-2020 Episodic Other upper respiratory disease (5 sources) Pain in throat; Translations: [Pain in throat] Onset: 12-13-2016 12-13-2016 Episodic Other upper respiratory disease (5 sources) Nasal obstruction; Translations: [Other specified disorders of nose and nasal sinuses] Onset: 12-13-2016 12-13-2016 Episodic Other upper respiratory disease (5 sources) Deviated nasal septum; Translations: [Deviated nasal septum] Onset: 03-28-2017 03-28-2017 Episodic Other upper respiratory infections (11 sources) Acute pharyngitis, unspecified; Translations: [Laryngitis] Onset: 08-02-2016 08-02-2016 Episodic Unclassified (1 source) COUGH, UNSPECIFIED; Translations: [COUGH, UNSPECIFIED] Onset: 04-12-2022 Results Test Name Value Interpretation Reference Range Facility TESTOSTERONE,F AND Ton 08-20 TESTOSTERONE,F,AD,ML 53.3 pg/mL Normal 47.0-244.0 [facility] Comment on above: Result Comment: NOTE INTERPRETIVE INFORMATION: Testosterone, Free by Dialysis This laboratory reference method for the direct measurement of free testosterone is not recommended when low testosterone concentrations, such as those found in children and cisgender females, are expected. For these individuals, the preferred test is Testosterone, Free (Adult Females, Children, or Individuals on Testosterone-Suppressing Hormone Therapy) (Inoapps test code 1733897). For individuals on testosterone hormone therapy, refer to cisgender male reference intervals. No reference intervals have been established for males younger than 18 years or for cisgender females. For a complete set of all established reference intervals, refer to [employer]/Tests/Pub/9871000. This test was developed and its performance characteristics determined by [facility]. It has not been cleared or approved by the US Food and Drug Administration. This test was performed in a CLIA certified laboratory and is intended for clinical purposes. Performed By: [facility] [address] [place] [address] Plate Straightener: Flakito Moreira MD, PhD CLIA Number: [id number] Performed By: #### T EFOSVALDOA #### [facility] [place] ([id number]) [address] [place] [address], [place] [address] TESTOSTERONE,TOT 278.9 ng/dL Low 300.0-890.0 [facility] Comment on above: Result Comment: NOTE This test was developed and its performance characteristics determined by [facility]. It has not been cleared or approved by the US Food and Drug Administration. This test was performed in a CLIA certified laboratory and is intended for clinical purposes. Performed By: #### T EFOSVALDOA #### [facility] [place] ([id number]) [address] [place] [address] 93597 CBC AND AUTO DIFFon 08-13-19 24 ABSOLUTE BASOPHIL 0.0 X10E9/L Normal 0.0-0.2 [facility] Comment on above: Performed By: #### C BCA #### [facility] [place] ([id number]) [address] [place] [address]227 ABSOLUTE NEUTROPHIL 4.4 X10E9/L Normal 1.5-6.6 [facility] Comment on above: Performed By: #### C BCA #### [facility] [place] ([id number]) [address] [place] [address] 61552 Basophils/100 WBC (Bld) 0.5 % Normal [facility] Comment on above: Performed By: #### C BCA #### [facility] [place] ([id number]) [address] [place] [address] 49580 Eosinophils (Bld) [#/Vol] 0.1 10*3/uL Normal 0.0-0.4 [facility] Comment on above: Performed By: #### C BCA #### [facility] [place] ([id number]) [address] [place] [address] 90667 Eosinophils/100 WBC (Bld) 1.2 % Normal [facility] Comment on above: Performed By: #### C BCA #### [facility] [place] ([id number]) [address] [place] [address] 26362 Erythrocyte distribution width (RBC) [Ratio] 13.1 % Normal 11.5-15.0 [facility] Comment on above: Performed By: #### C BCA #### [facility] [place] ([id number]) [address] [place] [address] 74505 Hematocrit (Bld) [Volume fraction] 45.5 % Normal 39-49 [facility] Comment on above: Performed By: #### C BCA #### [facility] [place] ([id number]) [address] [place] [address] 46720 Hemoglobin (Bld) [Mass/Vol] 15.6 g/dL Normal 13.0-17.0 [facility] Comment on above: Performed By: #### C BCA #### [facility] [place] ([id number]) [address] [place] [address] 90582 Lymphocytes (Bld) [#/Vol] 2.0 10*3/uL Normal 1.0-3.5 [facility] Comment on above: Performed By: #### C BCA #### [facility] [place] ([id number]) [address] [place] [address] 66032 Lymphocytes/100 WBC (Bld) 28.5 % Normal [facility] Comment on above: Performed By: #### C BCA #### [facility] [place] ([id number]) [address] [place] [address] 79134 MCH (RBC) [Entitic mass] 32.4 pg Normal 27-34 [facility] Comment on above: Performed By: #### C BCA #### [facility] [place] ([id number]) [address] [place] [address] 04137 MCHC (RBC) [Mass/Vol] 34.4 g/dL Normal 32-36 [facility] Comment on above: Performed By: #### C BCA #### [facility] [place] ([id number]) [address] [place] [address] 16906 MCV (RBC) [Entitic vol] 94 fL Normal 80-100 [facility] Comment on above: Performed By: #### C BCA #### [facility] [place] ([id number]) [address] [place] [address] 79702 Monocytes (Bld) [#/Vol] 0.6 10*3/uL Normal 0-0.9 [facility] Comment on above: Performed By: #### C BCA #### [facility] [place] ([id number]) [address] [place] [address] 67347 Monocytes/100 WBC (Bld) 8.1 % Normal [facility] Comment on above: Performed By: #### C BCA #### [facility] [place] ([id number]) [address] [place] [address] 37722 Neutrophils/100 WBC (Bld) 61.7 % Normal [facility] Comment on above: Performed By: #### C BCA #### [facility] [place] ([id number]) [address] [place] [address] 55226 Platelet mean volume (Bld) [Entitic vol] 8.4 fL Normal 7-12 [facility] Comment on above: Performed By: #### C BCA #### [facility] [place] ([id number]) [address] [place] [address] 70826 Platelets (Bld) [#/Vol] 263 10*3/uL Normal 150-450 [facility] Comment on above: Performed By: #### C BCA #### [facility] [place] ([id number]) [address] [place] [address] 75476 RBC COUNT 4.83 X10E12/L Normal 4.10-5.70 [facility] Comment on above: Performed By: #### C BCA #### [facility] [place] ([id number]) [address] [place] [address] 62534 WBC (Bld) [#/Vol] 7.2 10*3/uL Normal 4.0-11.0 [facility] Comment on above: Performed By: #### C BCA #### [facility] [place] ([id number]) [address] [place] [address] 13054 TESTOSTERONE,F AND Ton 08-08 TESTOSTERONE,F,AD,ML 41.2 pg/mL Low 47.0-244.0 [facility] Comment on above: Result Comment: NOTE INTERPRETIVE INFORMATION: Testosterone, Free by Dialysis This laboratory reference method for the direct measurement of free testosterone is not recommended when low testosterone concentrations, such as those found in children and cisgender females, are expected. For these individuals, the preferred test is Testosterone, Free (Adult Females, Children, or Individuals on Testosterone-Suppressing Hormone Therapy) (Inoapps test code [id number]). For individuals on testosterone hormone therapy, refer to cisgender male reference intervals. No reference intervals have been established for males younger than 18 years or for cisgender females. For a complete set of all established reference intervals, refer to [employer] Employment/Tests/Pub/9884885. This test was developed and its performance characteristics determined by [facility]. It has not been cleared or approved by the US Food and Drug Administration. This test was performed in a CLIA certified laboratory and is intended for clinical purposes. Performed By: [facility] [address] [place] [address] 79338 Plate Straightener: Flakito Moreira MD, PhD CLIA Number: [id number] Performed By: #### T EFTMA #### [facility] [place] ([id number]) [address] [place] [address] 96765 TESTOSTERONE,TOT 189.8 ng/dL Low 300.0-890.0 [facility] Comment on above: Result Comment: NOTE This test was developed and its performance characteristics determined by [facility]. It has not been cleared or approved by the US Food and Drug Administration. This test was performed in a CLIA certified laboratory and is intended for clinical purposes. Performed By: #### T EFTMA #### [facility] ([id number]) [address] [place] [address] CHEST WO IV CONTRASTon CT CHEST [...] pretracheal, parahilar or subcarinal adenopathy. Within the [id number] visualized abdominal contents show the gallbladder is surgically absent. In the [id number] there is a left borderline substernal thyroid. [...] Not Available MRI Knee w/o Lefton 05-22-20 MRI Knee w/o Left History: Medial and [...] by Dylan Lazo on 05/22/2022 1320 Normal [facility] Covid-19 PCR ([facility]on 03-29 SARS-CoV-2 (COVID-19) RNA OLGA LIDIA+probe Ql (Unsp spec) Not detected Normal NOT DETECTED [facility] Comment on above: Result Comment: This test is not yet approved or cleared by the [place] FDA. When there are no FDA-approved or cleared tests available, and other criteria are met, FDA can make tests available under an emergency access mechanism called an Emergency Use Authorization (EUA). The EUA for this test is supported by the [place] of Health and Human Service's (HHS's) declaration [...] consistent with SARS-CoV-2. Performed By: #### [facility] ####[facility] [id number] [place], [place] [address]CaBecca Walter 12-29-2021 GABE Telephone [facility] GEORGES WU ([id number]) 1980 M Date Time Provider Department 12/29/21 SAMY FLANNERY During your visit today, we recorded the following information about you: Samy Flannery MD 12/29/2021 10:25 AM Signed Called to check on patient postop No answer Left brief VM Samy Flannery MD, PhD Allergies As of Date: 12/29/2021 [...] use [Z72.0] 12/19/2021 Encounter Status:Closed by SAMY FLANNERY on 12/29/[address] [facility] ANES POSTPROC EVALon 022 ANES POSTPROC EVAL HNO ID: [id number] Author: Luis Fernando Farfan MD Service: Anesthesiology Author Type: Anesthesiologist Type: Anesthesia Postprocedure Evaluation Filed: 12/28/2021 1:12 PM Note Text: POST ANESTHESIA EVALUATION NOTE : 1980 Procedure Summary Date: 12/28/21 Room / Location: [address] Anesthesia Start: 1201 Anesthesia Stop: 1251 [...] Luis Fernando Farfan MD PATIENT NAME: Georges Wu DATE: December 28, 2021 TIME: 1:12 PM CSN: [id number] [facility] ANES PRE-OPon 12-28-2021 ANES PRE-OP HNO ID: [id number] Author: Luis Fernando Farfan MD Service: Anesthesiology Author Type: Anesthesiologist Type: Anesthesia Preprocedure Evaluation Filed: 12/28/2021 11:29 AM Note Text: ANESTHESIOLOGY DAY OF SURGERY NOTE : 1980 Procedure Information Date/Time: 12/28/21 1230 Procedures: SPERMATIC CORD DENERVATION (Right Groin) EXCISION LESION SPERMATIC CORD (Right ) EXCISION VARICOCELE (Right ) Location: [facility] Surgeons: Yvonne Coleman MD Estimated body mass [...] and consent discussed: yes. Patient / Responsible Republican agrees to proceed: yes Patient / Surrogate [...] (FLONASE) 50 mcg/actuation nasal spray Use 1 [place] in the nose. (Patient not taking: Reported [...] 48 hours of Surgery/Procedure. SIGNATURE: Luis Fernando aFrfan MD PATIENT NAME: Georges Wu DATE: December 28, 2021 TIME: 11:29 AM CSN: [id number] [facility] HISTORY PHYSICALon HISTORY PHYSICAL HNO ID: [id number] Author: Yvonne Coleman MD Service: Urology Author [...] be found in the attached. SIGNATURE: Yvonne Coelman MD PATIENT NAME: Georges Wu DATE: December 28, 2021 TIME: 11:32 AM PAGER: [facility] OPERATIVE NOon 12-28-2021 OPERATIVE NO HNO ID: [id number] Author: Samy Flannery MD Service: Urology Author Type: Physician Type: Operative Report Filed: 12/28/2021 1:00 PM Note Text: Attestation signed by Yvonne Coleman MD at 12/28/2021 2:37 PM Yvonne Coleman MD [facility] UROLOGY OPERATIVE REPORT Patient Name: Georges Wu Patient Log ID: [id number] Surgery Date: 12/28/2021 Incision/Procedure Start Time: 12:11 PM Incision Close/Procedure End Time: 12:44 PM Surgeon(s) and House Painter Helper(s): Surgeon(s) and Role: * Yvonne Coleman MD - Primary * Samy Flannery MD - Fellow Preoperative Diagnosis 1. Right [...] assistance from the fellow Dictated by Samy Flannery MD, PhD on (more content not included)... Normal [facility] HISTORY PHYSICALon 2 HISTORY PHYSICAL HNO ID: [id number] Author: Olga Muse PA-C Service: ? Author Type: Physician House Painter Helper Type: HANDP Filed: 12/19/2021 11:16 AM Note [...] (FLONASE) 50 mcg/actuation nasal spray Use 1 [place] in the nose. (Patient not taking: Reported [...] fevers. Neuro: No history of TIA's, stroke, RECEIVABLE EXECUTIVE tumor, impaired sensorium, hemiplegia, paraplegia or quadraplegia. [...] is norm (more content not included)... Normal [facility] CNOVon 12-18-2021 CNOV Office Visit (UROLAV ) GEORGES WU ([id number]) 1980 M Date Time Provider Department 12/18/21 9:00 AM YVONNE COLEMAN UROHUBER During your visit today, we recorded the following information about you: Pulse Blood pressure Weight 95/minute 129/75 86.2 kg Yvonne Coleman MD 12/18/2021 9:22 AM Signed Georges Wu Referred by: Sim Bains [id number] Pending sale to [facility] [id number] 12/18/2021 CC: Testis Pain HPI: 41 year [...] (FLONASE) 50 mcg/actuation nasal spray Use 1 [place] in the nose. - hydrocortisone 2.5 % [...] a right-sided spermatic cord denervation all in [place]. Plan: We discussed that the options remaining [...] orchiectomy, hydrocele (more content not included)... Normal [facility] Free T4on 11-24-2021 Free T4 [Mass/Vol] 1.25 ng/dL Normal 0.80-1.80 Nava gaona [place] Trial [address] Judge Comment on above: Performed By: #### T SH, FT4 #### [facility] [address] [place], [place] [id number] Parathyroid Hormone, Intacto n 11-24-2021 PTH 28.92 pg/mL Normal 16.00-65.00 [facility] o Trial Court Judge Comment on above: Performed By: #### P TH* #### [facility] [address], [place] [id number] TSHon 11-24-2021 TSH 1.270 uIU/mL Normal 0.400-4.[address] [facility] [address] Comment on above: Performed By: #### T SH, FT4 #### [facility] [address], [place] [id number] US Thyroidon 11-24-2021 US Thyroid HISTORY: thyroid [...] by Chemo Garsia on 11/24/2021 1541 Normal [facility] Specialist XR Abdomen Single View (KUB) *on 11-24-2021 [...] by Chemo Garsia on 11/24/2021 1521 Normal [facility] Specialist CBC AUTO DIFFon 11-23-2021 BASO # 0.0 103/ul Normal 0.0-0.1 [facility] Comment on above: Performed By: #### C BC ####[facility] [address] [place] [address]Dr. Rickey Singleton Basophils/100 WBC (Bld) 0.4 % Normal 0.2-2.0 [facility] Comment on above: Performed By: #### C BC ####[facility] [address] [place], [place] [address]Dr. Rickey Singleton EO # 0.1 103/ul Normal 0.0-0.7 [facility] Comment on above: Performed By: #### C BC ####[facility] S[address]zd[address] [place], [place] [address]Dr. Rickey Singleton Eosinophils/100 WBC (Bld) 1.3 % Normal 0.9-7.0 [facility] Comment on above: Performed By: #### C BC ####[facility] [address]ixpe[address] [place], [place] [address]Dr. Rickey Singleton Erythrocyte distribution width (RBC) [Ratio] 12.6 % Normal 11.0-15.0 [facility] Comment on above: Performed By: #### C BC ####[facility] X[address]mzro[address]ofs[address] [place], [place] [address]Dr. Rickey Singleton Hematocrit (Bld) [Volume fraction] 42.8 % Normal 42.0-54.0 [facility] Comment on above: Performed By: #### C BC ####[facility] Znxyhrdbfa[address] [place], [place] [address]Dr. Rickey Singleton Hemoglobin (Bld) [Mass/Vol] 14.0 g/dL Normal 14.0-18.0 [facility] Comment on above: Performed By: #### C BC ####[facility] [address] [place], [place] [address]Dr. Rickey Singleton IG # 0.02 10e3/ul Normal 0.00-0.03 [facility] Comment on above: Performed By: #### C BC ####[facility] J[address]ish[address] [place], [place] [address]Dr. Rickey Singleton IG % 0.3 % Normal 0.0-0.5 [facility] Comment on above: Performed By: #### C BC ####[facility] [address] [place] [address]DrBecca Singleton LYMPH # 2.6 103/ul Normal 1.2-3.8 [facility] Comment on above: Performed By: #### C BC ####[facility] Ltgtcyqypa24[address] [place] [address]DrBecca Singleton Lymphocytes/100 WBC (Bld) 33.9 % Normal 20.5-60.0 [facility] Comment on above: Performed By: #### C BC ####[facility] Juhx[address] [place], [place] [address]DrBecca Singleton MANUAL DIFF REQ NO Normal [facility] Comment on above: Performed By: #### C BC ####[facility] [address]zjigv[address] [place] [address]DrBecca Singleton MCH (RBC) [Entitic mass] 32.6 pg Normal 25.9-34.0 [facility] Comment on above: Performed By: #### C BC ####[facility] F[address]ax[address] [place], [place] [address]DrBecca Singleton MCHC (RBC) [Mass/Vol] 32.7 g/dL Normal 29.9-35.2 [facility] Comment on above: Performed By: #### C BC ####[facility] Rbd[address]fqe[address] [place], [place] [address]DrBecca Singleton MCV (RBC) [Entitic vol] 99.5 fL Critically high 80.0-94.0 [facility] Comment on above: Performed By: #### C BC ####[facility] [address]bdhieiy[address] [place], [place] [address]DrBecca Singleton MONO # 0.7 103/ul Normal 0.3-0.8 [facility] Comment on above: Performed By: #### C BC ####[facility] Y[address]raum[address] [place], [place] [address]DrBecca Singleton Monocytes/100 WBC (Bld) 8.5 % Normal 1.7-12.0 [facility] Comment on above: Performed By: #### C BC ####[facility] [address] [place] [address]Dr. Rickey Singleton NEUT # 4.3 103/ul Normal 1.4-6.5 [facility] Comment on above: Performed By: #### C BC ####[facility] [address] [place] [id number]. Rickey Singleton Neutrophils/100 WBC (Bld) 55.6 % Normal 43.0-75.0 [facility] Comment on above: Performed By: #### C BC ####[facility] [address]osp[address]yu[address] [place] [address]Dr. Rickey Singleton Platelet mean volume (Bld) [Entitic vol] 9.7 fL Normal 9.5-13.5 [facility] Comment on above: Performed By: #### C BC ####[facility] [address]fr[address] [place] [address]Dr. Rickey Singleton PLT 242 103/ul Normal 150-450 [facility] Comment on above: Performed By: #### C BC ####[facility] [address] [place] [id number]. Rickey Singleton RBC 4.30 106/ul Critically low 4.70-6.10 [facility] Comment on above: Performed By: #### C BC ####[facility] [address]pe[address] [place] [id number]. Rickey Singleton WBC 7.8 103/ul Normal 4.0-11.0 [facility] Comment on above: Performed By: #### C BC ####[facility] [address] [place] [id number]. Rickey Singleton ECHOCARDIO M/2D COMPLETEon 0 11-23-2021 ECHOCARDIO M/2D COMPLETE Patient: GEORGES WU Exam Date: 11/23/2021 : 1980 Gender:M Ordering : DR SINDY CHAPA . Admission #: [id number] Family : DR LOVE TEMPLETON Order #: [id number] CLICK HERE TO VIEW EXAM ECHOCARDIOGRAM REPORT [...] Area(A2C): 16.20 cm2 Left Atrium Systolic Volume(A2C): 78836 mm3 Mitral Valve MV E to A [...] Puri M.D. on 11/23/2021 at 17:56 Normal [facility] GLYCOHEMOGLOBIN A1Con 2021 ADA RECOMMENDATION SEE BELOW Normal [facility] Comment on above: Result Comment: ADA RECOMMENDED LIMIT 4.0 - 6.0 ADA THERAPEUTIC TARGET < 7.0 ACTION SUGGESTED > 7.0 Performed By: #### A 1C ####[facility] [address] [place] [address]DrBecca Singleton Glucose [Mass/Vol] 108 mg/dL Normal [facility] Comment on above: Performed By: #### A 1C ####[facility] [address]ug[address] [place] [address]DrBecca Singleton HbA1c (Bld) [Mass fraction] 5.4 % Normal 4.5-6.2 [facility] Comment on above: Performed By: #### A 1C ####[facility] [address] [place] [address]DrBecca Singleton LIPID PROFILEon 11-23-2021 CHOL-HDL RATIO NORM SEE BELOW Normal [facility] Comment on above: Result Comment: 3.3 - 4.4 LOW RISK 4.4 - 7.1 AVERAGE RISK 7.1 - 11.0 MODERATE RISK >11.0 HIGH RISK Performed By: #### C MP, LIPID ####[facility] [address] [place] [address]DrBecca Singleton Cholesterol [Mass/Vol] 147 mg/dL Normal <=200 [facility] Comment on above: Performed By: #### C MP, LIPID ####[facility] [address] [place] [id number]. Rickey Singleton Cholesterol in HDL [Mass/Vol] 55 mg/dL Normal 40-60 [facility] Comment on above: Performed By: #### C MP, LIPID ####[facility] [address] [place] [phone]. Rickey Singleton Cholesterol in LDL [Mass/Vol] 51.0 mg/dL Normal [facility] Comment on above: Performed By: #### C MP, LIPID ####[facility] [address] [place] [id number]. Rickey Singleton Cholesterol.total/Ch olesterol in HDL [Mass ratio] 2.7 {ratio} Normal [facility] Comment on above: Performed By: #### C MP, LIPID ####[facility] [address] [place] [id number]. Rickey Singleton HDL NORMAL > or = 60 mg/dl - LO W CARDIOVASCULAR RISK <40 mg/dl - HIGH CARDIOVASCULAR RISK Normal [facility] Comment on above: Performed By: #### C MP, LIPID ####[facility] [address] [place] [id number]. Rickey Singleton LDL CALC NORMAL SEE BELOW Normal [facility] Comment on above: Result Comment: <100 mg/dl OPTIMAL 100 - 129 mg/dl NEAR OR ABOVE OPTIMAL 130 - 159 mg/dl BORDERLINE HIGH 160 - 189 mg/dl HIGH >190 mg/dl VERY HIGH Performed By: #### C MP, LIPID ####[facility] [address] [place] [id number]. Rickey Singleton Triglyceride [Mass/Vol] 205 mg/dL Critically high <=150 [facility] Comment on above: Performed By: #### C MP, LIPID ####[facility] [address]iksu[address] [place] [id number]. Rickey Singleton VLDL CALC 41.0 mg/dL Normal [facility] Comment on above: Performed By: #### C MP, LIPID ####[facility] [address] [place], [place] [address]tDr. Rickey Singleton MRI BRAIN WO CONon 2 [...] CHEMO TAPIA Date: 2021-11-23 10:52 Normal [facility] PROF 14(COMP METB)on 022 Albumin [Mass/Vol] 3.5 g/dL Normal 3.4-5.0 [facility] Comment on above: Performed By: #### C MP, LIPID #### [facility] [address] [place] [address] [address] Rickey Singleton Albumin/Globulin [Mass ratio] 1.2 {ratio} Normal [facility] Comment on above: Performed By: #### C MP, LIPID #### [facility] [address] [place] [address] [address] Rickey Singleton ALP [Catalytic activity/Vol] 72 U/L Normal 46-116 [facility] Comment on above: Performed By: #### C MP, LIPID #### [facility] [address] [place], [place] [address] Dr. Rickey Singleton ALT [Catalytic activity/Vol] 33 U/L Normal 16-63 [facility] Comment on above: Performed By: #### C MP, LIPID #### [facility] [address] [place] [address] [address] Rickey Singleton Anion gap [Moles/Vol] 13.1 mmol/L Normal [facility] Comment on above: Performed By: #### C MP, LIPID #### [facility] [address] [place] [address] [address] Rickey Singleton AST [Catalytic activity/Vol] 13 U/L Critically low 15-37 [facility] Comment on above: Performed By: #### C MP, LIPID #### [facility] [address] [place] [address] [address] Rickey Singleton Bilirubin [Mass/Vol] 0.3 mg/dL Normal 0.2-1.0 [facility] Comment on above: Performed By: #### C MP, LIPID #### [facility] [address] [place] [address] [address] Rickey Singleton Calcium [Mass/Vol] 7.8 mg/dL Critically low 8.5-10.1 [facility] Comment on above: Performed By: #### C MP, LIPID #### [facility] [address] [place] [address] Dr. Rickey Singleton Chloride [Moles/Vol] 105 mmol/L Normal 98-107 [facility] Comment on above: Performed By: #### C MP, LIPID #### [facility] [address] [place] [address] [address] Rickey Singleton CO2 [Moles/Vol] 26.8 mmol/L Normal 21.0-32.0 [facility] Comment on above: Performed By: #### C MP, LIPID #### [facility] [address] [place] [address] [address] Rickey Singleton Creatinine [Mass/Vol] 0.65 mg/dL Critically low 0.70-1.30 [facility] Comment on above: Performed By: #### C MP, LIPID #### [facility] [address] [place] [address] [address] Rickey Singleton EGFR-AF [place] CITIZ[place] >60 Normal >=60 [facility] Comment on above: Performed By: #### C MP, LIPID #### [facility] [address] [place] [address] [address] Rickey Singleton EGFR-NON AF [place]IZ[place] >60 Normal >=60 [facility] Comment on above: Performed By: #### C MP, LIPID #### [facility] [address] [place] [address] [address] Rickey Singleton Globulin (S) [Mass/Vol] 2.8 g/dL Normal [facility] Comment on above: Performed By: #### C MP, LIPID #### [facility] [address] [place] [address] [address] Rickey Singleton Glucose [Mass/Vol] 105 mg/dL Normal 74-[address] [facility] Comment on above: Performed By: #### C MP, LIPID #### [facility] [address] [place] [address] Dr. Rickey Singleton Potassium [Moles/Vol] 3.9 mmol/L Normal 3.5-5.1 [facility] Comment on above: Performed By: #### C MP, LIPID #### [facility] [address] [place] [address] Dr. Rickey Singleton Protein [Mass/Vol] 6.3 g/dL Normal 6.1-8.[address] [facility] Comment on above: Performed By: #### C MP, LIPID #### [facility] [address] [place] [address] [address] Rickey Singleton Sodium [Moles/Vol] 141 mmol/L Normal 136-145 [facility] Comment on above: Performed By: #### C MP, LIPID #### [facility] [address] [place] [address] Dr. Rickey Singleton Urea nitrogen [Mass/Vol] 8.0 mg/dL Normal 7.0-18.0 [facility] Comment on above: Performed By: #### C MP, LIPID #### [facility] [address] [place] [address] Dr. Rickey Singleton Urea nitrogen/Creatinine [Mass ratio] 12.3 mg/mg Normal [facility] Comment on above: Performed By: #### C MP, LIPID #### [facility] [address] [place] [address] Dr. Rickey Singleton AMYLASEon 11-22-2021 Amylase [Catalytic activity/Vol] 53 U/L Normal 25-115 [facility] Comment on above: Performed By: #### C MP, LIPA, ESPERANZA #### [facility] [address] [place], [place] [address] Dr. Rickey Singleton CBC AUTO DIFFon 11-22-2021 BASO # 0.0 103/ul Normal 0.0-0.1 [facility] Comment on above: Performed By: #### C BC ####[facility] [address] [place] [id number] Singleton Basophils/100 WBC (Bld) 0.3 % Normal 0.2-2.0 [facility] Comment on above: Performed By: #### C BC ####[facility] [address] [place] [address]Dr. Rickey Singleton EO # 0.1 103/ul Normal 0.0-0.7 [facility] Comment on above: Performed By: #### C BC ####[facility] [address]ryoh[address]oya[address] [place] [address]DrBecca Singleton Eosinophils/100 WBC (Bld) 0.9 % Normal 0.9-7.0 [facility] Comment on above: Performed By: #### C BC ####[facility] [address] [place] [address]DrBecca Singleton Erythrocyte distribution width (RBC) [Ratio] 12.6 % Normal 11.0-15.0 [facility] Comment on above: Performed By: #### C BC ####[facility] [address]ccgcj[address] [place] [address]DrBecca Singleton Hematocrit (Bld) [Volume fraction] 45.2 % Normal 42.0-54.0 [facility] Comment on above: Performed By: #### C BC ####[facility] [address] [place] [id number] Singleton Hemoglobin (Bld) [Mass/Vol] 15.0 g/dL Normal 14.0-18.0 [facility] Comment on above: Performed By: #### C BC ####[facility] [address]xhsffgu[address] [place] [address]DrBecca Singleton IG # 0.03 10e3/ul Normal 0.00-0.03 [facility] Comment on above: Performed By: #### C BC ####[facility] [address]bmdjjwn[address] [place] [address]Dr. Adriannekristy Singleton IG % 0.4 % Normal 0.0-0.5 [facility] Comment on above: Performed By: #### C BC ####[facility] [address]jc[address] [place] [id number]. Adriannekristy Singleton LYMPH # 2.4 103/ul Normal 1.2-3.8 [facility] Comment on above: Performed By: #### C BC ####[facility] [address]kxlrl[address] [place] [address]DrBecca Adriannekristy Singleton Lymphocytes/100 WBC (Bld) 31.3 % Normal 20.5-60.0 [facility] Comment on above: Performed By: #### C BC ####[facility] [address] [place], [place] [address]DrBecca Singleton MANUAL DIFF REQ NO Normal [facility] Comment on above: Performed By: #### C BC ####[facility] [address] [place] [id number]. Rickey Mani MCH (RBC) [Entitic mass] 32.4 pg Normal 25.9-34.0 [facility] Comment on above: Performed By: #### C BC ####[facility] [address] [place] [phone]. Rickey Mani MCHC (RBC) [Mass/Vol] 33.2 g/dL Normal 29.9-35.2 [facility] Comment on above: Performed By: #### C BC ####[facility] [address]orqptb[address] [place] [id number] Adriannekristy Singleton MCV (RBC) [Entitic vol] 97.6 fL Critically high 80.0-94.0 [facility] Comment on above: Performed By: #### C BC ####[facility] [address]zbjs[address] [place] [address]DrBecca Singleton MONO # 0.6 103/ul Normal 0.3-0.8 [facility] Comment on above: Performed By: #### C BC ####[facility] Ezzhuqx[address]ng[address] [place] [id number]. Rickey Singleton Monocytes/100 WBC (Bld) 7.8 % Normal 1.7-12.0 [facility] Comment on above: Performed By: #### C BC ####[facility] Z[address]licnzaus[address] [place] [id number]. Rickey Singleton NEUT # 4.6 103/ul Normal 1.4-6.5 [facility] Comment on above: Performed By: #### C BC ####[facility] Qtz[address]ichlyn39[address] [place] [phone]. Rickey Singleton Neutrophils/100 WBC (Bld) 59.3 % Normal 43.0-75.0 [facility] Comment on above: Performed By: #### C BC ####[facility] Wyztlixqmj10[address] [place] [id number]. Rickey Singleton Platelet mean volume (Bld) [Entitic vol] 9.6 fL Normal 9.5-13.5 [facility] Comment on above: Performed By: #### C BC ####[facility] [address]ccnga[address] [place] [id number]. Rickey Singleton PLT 247 103/ul Normal 150-450 [facility] Comment on above: Performed By: #### C BC ####[facility] [address]ojdlj[address] [place] [phone]. Rickey Singleton RBC 4.63 106/ul Critically low 4.70-6.10 [facility] Comment on above: Performed By: #### C BC ####[facility] [address]cfqde22[address] [place] [phone]. Rickey Singleton WBC 7.7 103/ul Normal 4.0-11.0 [facility] Comment on above: Performed By: #### C BC ####[facility] Qhv[address]joyj[address] [place] [phone]. Rickey Singleton CT STROKE HEAD WOon 11-23-19 [...] by: MERLYN TORRES Date: 2021-11-22 17:55 Normal [facility] CTA HEAD WO W CONon 11-23-19 22 [...] JOSE A TEJADA Date: 2021-11-22 19:18 Normal [facility] Covid-19 PCR (CVDTB)on 10-28 SARS-CoV-2 (COVID-19) RNA OLGA LIDIA+probe Ql (Unsp spec) Not detected Normal NOT DETECTED [facility] Comment on above: Result Comment: When diagnostic testing is negative, the possibility of a false negative should be considered in the context of a patient's recent exposures and the presence of clinical signs and symptoms consistent with SARS-CoV-2. This test is not yet approved or cleared by the [place] Food and Drug Administration (FDA). This test was developed by [employer], [place], [place]. The performance characteristics of this test were validated by [facility]. The results are not intended to be used as the sole means for clinical diagnosis or patient management decisions. [facility] is authorized under Clinical Laboratory Improvement Amendments [...] for this test is supported by the [employer] of Health and Human Service's declaration that [...] be used). Performed By: #### C VDTBH ####[facility] [address]cl[address] [place] [address]Dr. Rickey Singleton LIPASEon 11-22-2021 Lipase [Catalytic activity/Vol] 61.0 U/L Critically low 73.0-393.0 [facility] Comment on above: Performed By: #### C MP, LIPA, ESPERANZA #### [facility] [address] [place] [address] [address] Rickey Singleton PROF 14(COMP METB)on 022 Albumin [Mass/Vol] 4.3 g/dL Normal 3.4-5.0 [facility] Comment on above: Performed By: #### C MP, LIPA, ESPERANZA #### [facility] [address] [place] [address] [address] Rickey Singleton Albumin/Globulin [Mass ratio] 1.3 {ratio} Normal [facility] Comment on above: Performed By: #### C RONALD BOWMAN, ESPERANZA #### [facility] [address] [place] [address] Dr. Rickey Singleton ALP [Catalytic activity/Vol] 80 U/L Normal 46-116 [facility] Comment on above: Performed By: #### C BRENDA BOWMANA, ESPERANZA #### [facility] [address] [place] [address] Dr. Rickey Singleton ALT [Catalytic activity/Vol] 40 U/L Normal 16-63 [facility] Comment on above: Performed By: #### C RONALD BOWMAN, ESPERANZA #### [facility] [address] [place] [address] Dr. Rickey Singleton Anion gap [Moles/Vol] 12.3 mmol/L Normal [facility] Comment on above: Performed By: #### C BRENDA BOWMANA, ESPERANZA #### [facility] [address] [place] [address] Dr. Rickey Singleton AST [Catalytic activity/Vol] 20 U/L Normal 15-37 [facility] Comment on above: Performed By: #### C RONALD BOWMAN, ESPERANZA #### [facility] [address] [place] [address] Dr. Rickey Singleton Bilirubin [Mass/Vol] 0.5 mg/dL Normal 0.2-1.0 [facility] Comment on above: Performed By: #### C GRACIE LIPA, ESPERANZA #### [facility] [address] [place] [address] Dr. Rickey Singleton Calcium [Mass/Vol] 8.2 mg/dL Critically low 8.5-10.1 Th [facility] Comment on above: Performed By: #### C BRENDA BOWMANA, ESPERANZA #### [facility] [address] [place] [address] Dr. Rickey Singleton Chloride [Moles/Vol] 100 mmol/L Normal 98-107 [facility] Comment on above: Performed By: #### C GRACIE LIPA, ESPERANZA #### [facility] [address] [place] [address] [address] Rickey Singleton CO2 [Moles/Vol] 29.2 mmol/L Normal 21.0-32.0 [facility] Comment on above: Performed By: #### C MP, LIPA, ESPERANZA #### [facility] [address] [place] [address] [address] Rickey Singleton Creatinine [Mass/Vol] 0.67 mg/dL Critically low 0.70-1.30 The [facility] Comment on above: Performed By: #### C MP, LIPA, ESPERANZA #### [facility] [address] [address] [address] Rickey Singleton EGFR-AF [place] CITIZ[place] >60 Normal >=60 [facility] Comment on above: Performed By: #### C MP, LIPA, ESPERANZA #### [facility] [address] [place] [address] Dr. Rickey Singleton EGFR-NON AF [place] CITIZEN >60 Normal >=60 [facility] Comment on above: Performed By: #### C MP, LIPA, ESPERANZA #### [facility] [address] [address] [address] Rickey Singleton Globulin (S) [Mass/Vol] 3.2 g/dL Normal [facility] Comment on above: Performed By: #### C MP, LIPA, ESPERANZA #### [facility] [address] [place] [address] Dr. Rickey Singleton Glucose [Mass/Vol] 91 mg/dL Normal 74-[address] [facility] Comment on above: Performed By: #### C MP, LIPA, ESPERANZA #### [facility] [address] [address] [address] Rickey Singleton Potassium [Moles/Vol] 3.5 mmol/L Normal 3.5-5.1 [facility] Comment on above: Performed By: #### C MP, LIPA, ESPERANZA #### [facility] [address] [address] [address] Rickey Singleton Protein [Mass/Vol] 7.5 g/dL Normal 6.1-8.[address] [facility] Comment on above: Performed By: #### C RONALD BOWMAN, ESPERANZA #### [facility] [address] [place] [address] Dr. Rickey Singleton Sodium [Moles/Vol] 138 mmol/L Normal 136-[address] [facility] Comment on above: Performed By: #### C GRACIE LIPA, ESPERANZA #### [facility] [address] [place] [address] Dr. Rickey Singleton Urea nitrogen [Mass/Vol] 9.0 mg/dL Normal 7.0-18.0 [facility] Comment on above: Performed By: #### C RONALD BOWMAN, ESPERANZA #### [facility] [address] [place] [address] Dr. Rickey Singleton Urea nitrogen/Creatinine [Mass ratio] 13.4 mg/mg Normal [facility] Comment on above: Performed By: #### C RONALD BOWMAN, ESPERANZA #### [facility] [address] [place] [address] Dr. Rickey Singleton PROTIMEon 11-22-2021 INR Coag (PPP) [Relative time] {INR} Normal [facility] Comment on above: Performed By: #### P TT, PT #### [facility] [address] [place] [address] Dr. Rickey Singleton INR GUIDELINES SEE BELOW Normal [facility] Comment on above: Result Comment: MAGDA RED INR: 2.0 - 3.0 CONDITIONS NOT LISTED BELOW 2.5 - 3.5 FOR PROSTHETIC HEART VALVE REPLACEMENT 2.5 - 3.5 RECURRENT THROMBOSIS Performed By: #### P TT, PT #### [facility] [address] [place] [address] Dr. Rickey Singleton PT Coag (PPP) [Time] 9.9 s Normal 9.0-11.6 [facility] Comment on above: Performed By: #### P TT, PT #### [facility] [address] [place] [address] Dr. Rickey Singleton PTTon 11-22-2021 aPTT Coag (Bld) [Time] 26.5 s Normal 22.3-36.2 [facility] Comment on above: Performed By: #### P TT, PT #### [facility] [address] [address] [address] Rickey Singleton XR CHEST 1 Von [...] by: MERLYN TORRES Date: 2021-11-22 18:01 Normal [facility] CNOVon 11-02-2021 CNOV Office Visit (UROLLN ) GEORGES WU ([id number]) 1980 M Date Time Provider Department 11/02/21 1:40 PM SIM BAINS During your visit today, we recorded the following information about you: Pulse Respiration Blood pressure 92/minute 16/minute 133/69 Sim Bains MD 11/02/2021 2:07 PM Signed [facility] NEW PATIENT HISTORY AND PHYSICAL EXAM PATIENT INFO: Georges Wu 41 year old CHIEF COMPLAINT: R testis pain. HISTORY: Georges Wu is a 41 year old male who [...] month. The pain recurred and saw a painter interior finish in [place]. He was done another nerve block in [...] Color YELLOW YELLOWYELLOW ? 10/11/2021 1:43 AM [facility] ? Turbidity CLEAR CLEARCLEAR ? 10/11/2021 1:43 AM [facility] ? Specific gravity >1.030 1.003 - 1.035 ? 10/11/2021 1:43 AM [facility] ? Nitrite Negative NegativeNegative ? 10/11/2021 1:43 AM [facility] ? Ph urine 6.0 5.0 - 8.5 ? 10/11/2021 1:43 AM [facility] ? Leukocyte esterase Negative NegativeNegative ? 10/11/2021 1:43 AM [facility] ? Protein Negative NegativeNegative mg/dL ? 10/11/2021 1:43 AM [facility] ? Glucose, Ur Negative NegativeNegative mg/dL ? 10/11/2021 1:43 AM [facility] ? Ketones urine Negative NegativeNegative mg/dL ? 10/11/2021 1:43 AM [facility] ? Urobilinogen 0.2 <1.1 eu/dL ? 10/11/2021 1:43 AM [facility] ? Bilirubin, urine Negative NegativeNegative ? 10/11/2021 1:43 AM [facility] ? Hemoglobin Negative NegativeNegative ? 10/11/2021 1:43 AM [facility] ? ? Location: testicle right ? Pain [...] normal, n (more content not included)... Normal [facility] Basic Metabolic Panelon 03- Anion gap [Moles/Vol] 16 mmol/L Normal 12-[address] [place] [address] Comment on above: Result Comment: Effalex ctive 08/03/2019 reference range changed. Performed By: #### B MP, CBCAD #### [facility] [address], [place] [id number] Calcium [Mass/Vol] 9.2 mg/dL Normal 8.6-10.[address] [place] [address] [facility] Comment on above: Performed By: #### B MP, CBCAD #### [facility] [address], [place] [id number] Chloride [Moles/Vol] 106 mmol/L Normal 98-107 [facility] Comment on above: Performed By: #### B MP, CBCAD #### [facility] [address], [place] [id number] CO2 [Moles/Vol] 24 mmol/L Normal 20-31 [facility] Comment on above: Performed By: #### B MP, CBCAD #### [facility] [address], [place] [id number] Creatinine [Mass/Vol] 0.7 mg/dL Normal 0.7-1.4 [facility] Comment on above: Performed By: #### B MP, CBCAD #### [facility] [address], [place] [id number] eGFRAA 144 mL/min/1.73m2 Normal >60 [facility] Specialist Comment on above: Performed By: #### B MP, CBCAD #### [facility] [address], [place] [id number] eGFRNAA 118 mL/min/1.73m2 Normal >60 [facility] Specialist Comment on above: Performed By: #### B MP, CBCAD #### [facility] [address], [place] [id number] Glucose [Mass/Vol] 104 mg/dL High 65-[address] [place] [address] Comment on above: Result Comment: For FASTING Glucose --- ADA reference ranges: Normal 65-99 mg/dl Prediabetes 100-125 Diabetes >/= 126 Performed By: #### B MP, CBCAD #### [facility] [address], [place] [id number] Potassium [Moles/Vol] 4.4 mmol/L Normal 3.5-5.5 [facility] Specialist Comment on above: Performed By: #### B MP, CBCAD #### [facility] [address], [place] [id number] Sodium [Moles/Vol] 141 mmol/L Normal 135-146 [facility] Comment on above: Performed By: #### B MP, CBCAD #### [facility] [address], [place] [id number] Urea nitrogen [Mass/Vol] 13 mg/dL Normal 7-25 [facility] Specialist Comment on above: Performed By: #### B MP, CBCAD #### [facility] [address], [place] [id number] Complete Blood Count with Au to Diffon 10-12-2021 Basophils (Bld) [#/Vol] 0.04 10*3/uL Normal 0.00-0.20 [facility] Specialist Comment on above: Performed By: #### B MP, CBCAD #### [facility] [address], [place] [id number] Basophils/100 WBC (Bld) 0.7 % Normal [facility] Comment on above: Performed By: #### B GRACIE, CBCAD #### [facility] [address], [place] [id number] Eosinophils (Bld) [#/Vol] 0.11 10*3/uL Normal 0.02-0.50 [facility] Specialist Comment on above: Performed By: #### B MP, CBCAD #### [facility] [address], [place] [id number] Eosinophils/100 WBC (Bld) 1.8 % Normal [facility] Comment on above: Performed By: #### B MP, CBCAD #### [facility] [address], [place] [id number] Erythrocyte distribution width (RBC) [Ratio] 12.5 % Normal 11.0-15.0 [facility] Specialist Comment on above: Performed By: #### B MP, CBCAD #### [facility] [address], [place] [id number] Hematocrit (Bld) [Volume fraction] 43.2 % Normal 38.5-50.[address] [facility] [address] Judge Comment on above: Performed By: #### B MP, CBCAD #### [facility] [address], [place] [id number] Hemoglobin (Bld) [Mass/Vol] 14.2 g/dL Normal 13.0-17.[address] [facility] [address] Judge Comment on above: Performed By: #### B MP, CBCAD #### [facility] [address], [place] [id number] Lymphocytes (Bld) [#/Vol] 1.9 10*3/uL Normal 0.9-3.9 [facility] Specialist Comment on above: Performed By: #### B MP, CBCAD #### [facility] [address], [place] [id number] Lymphocytes/100 WBC (Bld) 31.6 % Normal [facility] Specialist Comment on above: Performed By: #### B MP, CBCAD #### [facility] [address], [place] [id number] MCH (RBC) [Entitic mass] 31.8 pg Normal 27.0-33.[address] [facility] [address] Judge Comment on above: Performed By: #### B MP, CBCAD #### [facility] [address], [place] [id number] MCHC (RBC) [Mass/Vol] 32.9 g/dL Normal 32.0-36.[address] [facility] [address] Judge Comment on above: Performed By: #### B MP, CBCAD #### [facility] [address], [place] [id number] MCV (RBC) [Entitic vol] 97 fL Normal 80-[address] [facility] [address] Judge Comment on above: Performed By: #### B MP, CBCAD #### [facility] [address], [place] [id number] Monocytes (Bld) [#/Vol] 0.6 10*3/uL Normal 0.2-0.9 [facility] Specialist Comment on above: Performed By: #### B MP, CBCAD #### [facility] [address], [place] [id number] Monocytes/100 WBC (Bld) 10.5 % Normal [facility] Comment on above: Performed By: #### B MP, CBCAD #### [facility] [address], [place] [id number] Neutrophils (Bld) [#/Vol] 3.3 10*3/uL Normal 1.5-7.8 [facility] Comment on above: Performed By: #### B MP, CBCAD #### [facility] [address], [place] [id number] Neutrophils/100 WBC (Bld) 55.1 % Normal [facility] Comment on above: Performed By: #### B MP, CBCAD #### [facility] [address], [place] [id number] Platelet mean volume (Bld) [Entitic vol] 10.30 fL Normal 7.50-12.50 [facility] Comment on above: Performed By: #### B MP, CBCAD #### [facility] [address], [place] [id number] Platelets (Bld) [#/Vol] 237 10*3/uL Normal 140-400 [facility] Comment on above: Performed By: #### B MP, CBCAD #### [facility] [address], [place] [id number] RBC (Bld) [#/Vol] 4.46 10*6/uL Normal 4.20-5.80 [facility] Comment on above: Performed By: #### B MP, CBCAD #### [facility] [address], [place] [id number] RDW-SD 44.8 fL Normal 37.0-50.0 [facility] Comment on above: Performed By: #### B MP, CBCAD #### [facility] [address], [place] [id number] WBC (Bld) [#/Vol] 6.1 10*3/uL Normal 3.8-11.0 [facility] Comment on above: Performed By: #### B MP, CBCAD #### [facility] [address], [place] [id number] Vital Signs Date Time Vital Sign Value Performing Clinician Dat shannon 08-28-2023 09:12-0500 Body height 172.7 cm Audrey SYLVESTER Work Phone: [facility] 08-28-2023 09:12-0500 Body mass index (BMI) [Ratio] 32.54 kg/m2 Audrey SYLVESTER Work Phone: [facility] [employer] [facility] 08-28-2023 09:12-0500 Body weight 97.07 kg Audrey SYLVESTER Work Phone: [facility] [employer] [facility] 08-28-2023 09:12-0500 Diastolic blood pressure 65 mm[Hg] Audrey Padron PA Work Phone: [facility] 08-28-2023 09:12-0500 Heart rate 72 /min Audrey SYLVESTER Work Phone: [facility] [employer] 08-28-2023 09:12-0500 Systolic blood pressure 113 mm[Hg] Audrey SYLVESTER Work Phone: [facility] [employer] [facility] 08-07-2023 15:57-0500 Body height 172.7 cm Audrey SYLVESTER Work Phone: [facility] 08-07-2023 15:57-0500 Body mass index (BMI) [Ratio] 32.54 kg/m2 Audrey SYLVESTER Work Phone: [facility] 08-07-2023 15:57-0500 Body weight 97.07 kg Audrey SYLVESTER [facility] 08-07-2023 15:57-0500 Diastolic blood pressure 73 mm[Hg] Audrey SYLVESTER Work Phone: [facility] 08-07-2023 15:57-0500 Heart rate 71 /min Audrey SYLVESTER Work Phone: [facility] 08-07-2023 15:57-0500 Systolic blood pressure 129 mm[Hg] Audrey SYLVESTER Work Phone[facility] 12-19-2021 11:07-0400 Body height 172.7 cm Pac 2 Work Phone: [facility] 12-19-2021 11:07-0400 Body weight 86.18 kg Pac 2 Work Phone: [facility] 12-18-2021 08:41-0400 Body weight 86.18 kg Yvonne Coleman MD Work Phone: [facility] 12-18-2021 08:41-0400 Diastolic blood pressure 75 mm[Hg] Yvonne Coleman MD Work Phone: [facility] 12-18-2021 08:41-0400 Heart rate 95 /min Yvonne Coleman MD Work Phone: [facility] 12-18-2021 08:41-0400 Systolic blood pressure 129 mm[Hg] Yvonne Coleman MD Work Phone: [facility] 11-02-2021 13:39-0400 Diastolic blood pressure 69 mm[Hg] Sim Bains MD Work Phone: [facility] 11-02-2021 13:39-0400 Heart rate 92 /min Sim Bains MD Work Phone: [facility] 11-02-2021 13:39-0400 Respiratory rate 16 /min Sim Bains MD Work Phone: [facility] 11-02-2021 13:39-0400 Systolic blood pressure 133 mm[Hg] Sim Bains MD Work Phone: [facility] Encounters Encounter Date Encounter Type Care Provider Facility Start: 09-11-2023 Telephone encounter Devan Pack CMA [facility] Start: 09-09-2023 ambulatory Eliu Mead ty:[facility] Start: 09-09-2023 Telephone encounter Brittny Boudreaux LPN [facility] Start: 09-02-2023 Orders Only Lucy SYLVESTER Work Phone: [facility] Comment on above: Low testosterone in male (Primary Dx) Start: 08-28-2023 End: 08-28-2023 ambulatory AUDREY PADRON [facility] Start: 08-28-2023 End: 08-28-2023 Office outpatient visit 15 minutes uAdrey SYLVESTER Work Phone: [facility] Comment on above: Hypogonadism in male (Primary Dx) Start: 08-21-2023 End: 08-21-2023 ambulatory TIM BENJAMIN Not Available Start: 08-20-2023 End: 08-21-2023 ambulatory AUDREY Seven TREVON [facility] Start: 08-14-2023 End: 08-14-2023 ambulatory SANCHEZ BARBER Not Available Start: 08-13-2023 End: 08-13-2023 Emergency department patient visit LOVE TEMPLETON [facility] Start: 08-08-2023 End: 08-09-2023 ambulatory AUDREY Seven TREVON [facility] Start: 08-07-2023 End: 08-07-2023 ambulatory AUDREY Amezcua [facility] Start: 08-07-2023 End: 08-07-2023 Office outpatient visit 25 minutes Audrey SYLVESTER Work Phone: [facility] Comment on above: Erectile dysfunction , unspecified erectile dysfunction type (Primary Dx); Rash Start: 07-24-2023 End: 07-25-2023 ambulatory LOVE Barajas WONDERLY Not Available Start: 07-19-2023 End: 07-19-2023 ambulatory STEVE ROLON [facility] Start: 07-18-2023 End: 07-19-2023 ambulatory LOVE Jenn WONDERLY Not Available Start: 07-15-2023 End: 07-16-2023 ambulatory LOVE Barajas WONDERLY Not Available Start: 07-03-2023 End: 07-03-2023 ambulatory LOVE Barajas WONDERLY Not Available Start: 06-06-2023 ambulatory Eliu ALVARADO Facility :[facility] Start: 05-04-2022 Patient encounter status Kalli SYLVESTER Work Phone: [facility] Start: 04-12-2022 End: 04-12-[address] LOVE TEMPLETON Facility:[facility] Start: 12-29-2021 Telephone encounter Samy lynne MD Work Phone: Urology Comment on above: Post-Op Visit Start: 12-19-2021 End: 12-19-2021 Admission to establishment Pacc Main Virtual 2 Work Phone: [facility] Start: 12-19-2021 End: 12-19-2021 ambulatory Pac [...] 11-22-2021 End: 11-23-[address] SINDY CHAPA Facility:[facility] Start: 11-02-2021 End: 11-02-2021 Patient encounter procedure Sim Bains MD Work Phone: Urology Comment on above: Pain in right testic le (Primary Dx) Start: 10-30-2021 ambulatory Jennifer Flor RN [facility] Start: 10-30-2021 Patient encounter procedure Jennifer Flor RN [facility] Comment on above: Referral Information Procedures Date Procedure Procedure Detail Performing Clinician Start: 08-28-2023 Follow-up visit Follow-up JOANNA PADRON Start: 11-23-[address] CHAITANYA CHAPA Comment on above: Performed By: #### P SAD ####[address] [address]Dr. Rickey Singleton Start: 05-26-2020 H/O: surgery S/P UPPP (uvulopalatopharyngopl asty) Audrey SYLVESTER Work Phone: Plan of Treatment Date Care Activity Detail Author Start: 03-14-2030 DTaP,Tdap and Td Vaccines (2 - Td or Tdap) DTaP,Tdap and Td Vaccines (2 - Td or Tdap) [facility] Start: 07-04-2025 LIPID SCREEN LIPID SCREEN [facility] Start: 08-28-2024 Adult BMI Screening Adult BMI Screen ing [facility] Start: 08-28-2024 Tobacco Screening Tobacco Screening [facility] Start: 08-07-2024 Adult BMI Screening Adult BMI Screen ing [facility] Start: 08-07-2024 Tobacco Screening Tobacco Screening [facility] Start: 03-07-2024 Tobacco Counseling Tobacco Counselin g [facility] Start: 10-02-2023 End: 10-02-2023 Patient encounter procedure 10/02/2023 2:30 PM EST Office Visit [facility] [address] [place] [id number] Saray Tellez MD [address] [place], [place] [id number] [facility] Start: 03-29-2023 COVID-19 Vaccine ( season) COVID-19 Vaccine ( season) [facility] Start: 03-29-2023 Influenza vaccination Influenza Vacc ine [facility] Start: 03-29-2022 Influenza vaccination INFLUENZ A (Season Ended) [facility] Start: 02-06-2022 COVID-19 VACCINE (3 - Booster for Moderna series) COVID-19 VACCINE (3 - Booster for Moderna series) [facility] Start: 2015 LIPID SCREEN LIPID SCREEN [facility] Start: 1999 Urine microalbumin profile DTAP,TDAP,TD (1 - Tdap) [facility] Start: 1998 Adult BMI Follow Up Plan Adult BMI Follow Up Plan [facility] Start: 1998 HEPATITIS C SCREENING HEPATITIS C SC REENING [facility] Start: 1998 HIV SCREENING HIV SCREENING [facility] Start: 1992 Adult depression screening assessment DEPRESSION SCREENING [facility] Start: 1986 PNEUMOCOCCAL (1 - PCV) PNEUMOCOCCAL (1 - PCV) [facility] Start: 1985 COVID-19 VACCINE (1) COVID-19 VACCIN E (1) [facility] End: 09-01-2024 Testosterone [Mass/volume] in Serum or Plasma Testosterone Lab Routine Low testosterone in male 1 Occurrences starting 09/02/2023 until 09/01/2024 [facility] Work Phone: Comment on above: 1 Occurrences starti ng 09/02/2023 until 09/01/2024 End: 08-07-2024 Testosterone, Free/Total, Male Testosterone, Free/Total, Male Lab Routine Erectile dysfunction, unspecified erectile dysfunction type 1 Occurrences starting 08/07/2023 until 08/07/2024 [facility] Work Phone: Comment on above: 1 Occurrences starti ng 08/07/2023 until 08/07/2024 [facility] Immunizations Immunization Date Immunization Notes Care Provider [place] 03-14-2020 tetanus toxoid, redu princess diphtheria toxoid, and acellular pertussis vaccine, adsorbed Audrey SYLVESTER Work Phone: [facility] Payers Date Payer Category Payer Medicaid [id number] 2020 Medicaid [place] [employer] [facility] MEDICAID [id number] 2020-Present [phone] [place] [address] Medicaid [id number] 1980 Unknown [id number] [id number] 1980 Unknown [id number] [id number] 1980 Unknown [id number] 2.16.840.1.772927.3.579.2.9 1980 Unknown [id number] 2.16.840.1.618699.3.579.2.9 1980 Unknown [id number] 2.16.840.1.989796.3.579.2.9 1980 Unknown [id number] 2.16.840.1.714667.3.579.2.1258 1980 Unknown [id number] 2.16.840.1.311787.3.579.2.1258 1980 Unknown [id number] 2.16.840.1.525752.3.579.2.1258 1980 Unknown [id number] 2.16.840.1.674755.3.579.2.1258 1980 Unknown [id number] 2.16.840.1.409481.3.579.2.1285 1980 Unknown [id number] 2.16.840.1.004363.3.579.2.1285 1980 Unknown [id number] 2.16.840.1.867514.3.579.2.1285 1980 Unknown [id number] 2.16.840.1.207169.3.579.2.1285 1980 Unknown [id number] 2.16.840.1.711641.3.579.2.1285 1980 Unknown [id number] 2.16.840.1.568501.3.579.2.1286 1959 Unknown [id number] Unknown [id number] Social History Date Type Detail Facility Tobacco smoking stat [facility] Tobacco smoking consumption unknown [facility] Start: 1980 Sex Assigned At Not on file [facility] Start: 10-20-2021 End: 12-28-2021 Exposure to SARS-CoV-2 (event) Not sure [facility] Start: 11-02-2021 End: 03-22-2023 Tobacco smoking status NHIS Smokes tobacco daily [facility] Start: 11-02-2021 End: 03-22-2023 Tobacco use and exposure Smokeless tobacco non-user [facility] History of tobacco use Cigarette Smoker [facility] Start: 08-15-2020 End: 11-02-2021 Cigarettes smoked current (pack per day) - Reported 0.5 [facility] Start: 12-19-2021 End: 08-28-2023 Alcohol intake Current drinker of alcohol (finding) [facility] Start: 12-19-2021 History SDOH Alcohol Comment socially - 3 drinks per week [facility] Start: 08-15-2020 End: 08-07-2023 Tobacco use panel [facility] Adolescent depressio n screening assessment 0 [facility] Start: 04-05-2023 Alcohol Comment weekly [facility] Clinical Notes 10-30-2021 to 09-11-2023 Telephone Encounter - Devan Pack CMA - 09/11/2023 11:26 AM ESTTelephone Encounter - Ermelinda Carballo CMA - 09/11/2023 11:26 AM [facility] Matthews - 09/02/2023 12:32 PM EST Note Date & Type Note Facility 09-11-2023 Miscellaneous Notes Patient called in stating his insurance told him his PA was denied because they only received one panel of his testosterone and also they prefer a generic to be tried Please advise Yvonne talked to him the last 2 days and he was asked to call his insurance and see what they would cover. Did he say if he did that or if he found out what medications they would cover? Looks like Lucy and Yvonne were working on this. Patient said he spoke with insurance and that's what they said is they did not receive enough testosterone levels and also he would need to try a generic but did not give a name of a generic. Appeal submitted Thank you. It looks like what Lucy prescribed was testosterone gel and did not write dispense as written so the should automatically substitute with an available generic I see 2 separate low testosterone levels??--how many does the insurance need. Agree with Dr. Short. They need two I sent both in with the PA but some how the middle pages where missing? I resent the information and confirmed that it ALL was received documented in this encounter [facility] 09-11-2023 Telephone encounter Note Patient called in stating his insurance told him his PA was denied because they only received one panel of his testosterone and also they prefer a generic to be tried [facility] Note Yvonne talked to him the last 2 days and he was asked to call his insurance and see what they would cover. Did he say if he did that or if he found out what medications they would cover? Looks like Lucy and Yvonne were working on this. [facility] Note Patient said he spoke with insurance and that's what they said is they did not receive enough testosterone levels and also he would need to try a generic but did not give a name of a generic. [facility] 09-11-2023 Telephone encounter Note Appeal submitted [facility] 09-11-2023 Telephone encounter Note Thank you. It looks like what Lucy prescribed was testosterone gel and did not write dispense as written so the should automatically substitute with an available generic [facility] 09-11-2023 Telephone encounter Note I see 2 separate low testosterone levels??--how many does the insurance need. Agree with Dr. Short. [facility] 09-11-2023 Telephone encounter Note They need two I sent both in with the PA but some how the middle pages where missing? I resent the information and confirmed that it ALL was received [facility] 09-09-2023 Miscellaneous Notes Insurance denied Androgel because he has not tried lower cost alternatives. (They did not include what the lower cost alternatives where in the letter) He should check his insurance formulary and call us with cheapest options LM to RC documented in this encounter [facility] 09-09-2023 Telephone encounter Note Insurance denied Androgel because he has not tried lower cost alternatives. (They did not include what the lower cost alternatives where in the letter) [facility] 09-09-2023 Telephone encounter Note He should check his insurance formulary and call us with cheapest options [facility] 09-09-2023 Telephone encounter Note MITZY to [facility] 09-02-2023 History of Present illness Narrative See patient advice message re: wanting to start Androgel--Rx sent NGA Bates 09/02/23 1238 documented in this encounter [facility] 08-28-2023 History of Present illness Narrative Images from the original note were not included. [address] [place] [address] A [facility] B [facility] [id number] Patient: Georges Wu Date of : 1980 Encounter Date: 08/28/2023 [...] rash in the left groin/scrotum. He tried xoip-poq-qmzcbtu meds but they were ineffective. He saw [...] will notify him of the results through [employer]. 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 All treatments [...] atrial tachycardia Psoriasis Staph infection right arm, [facility], early Tobacco abuse Visual impairment Glasses Vocal cord paralysis Past Surgical History: Procedure Laterality Date ADENOIDECTOMY ARTHROSCOPY KNEE Left 11/25/2019 Performed by Flash Guzman DO at [facility] ARTHROSCOPY PARTIAL LATERAL MENISCECTOMY KNEE Left 07/18/2022 Performed by Flash Guzman DO at [facility] CHOLECYSTECTOMY 2004 [place] COLONOSCOPY CYSTECTOMY CYSTOSCOPY N/A 04/05/2023 Performed by Yvonne Short MD at [facility] EPIDIDYMECTOMY Bilateral 11/04/2020 Performed by Yvonne Souza MD at [facility] HERNIA REPAIR Abdm after gall bladder surgery NEUROLYSIS SPERMATIC CORD SUBINGUINAL Right 03/10/2021 Performed by Yvonne Souza MD at [facility] PARTIAL VASECTOMY Bilateral 02/05/2020 Performed by Yvonne Souza MD at [facility] RESECTION SUBMUCOSAL Bilateral 05/19/2020 Performed by Flash Tate MD PhD at [facility] SEPTOPLASTY N/A 05/19/2020 Performed by Flash Tate MD PhD at [facility] TONSILLECTOMY TONSILLECTOMY Bilateral 05/19/2020 Performed by Flash Tate MD PhD at [facility] UVULOPLASTY N/A 05/19/2020 Performed by Flash Tate MD PhD at [facility] Family History Problem Relation Age of Onset [...] will need to check a PSA. NGA MORTENSEN This note was created with the assistance of a speech recognition program. While intending to generate a timely document that accurately reflects the content of the visit, no guarantee can be provided that every grammatical or spelling mistake has been or will be identified or corrected. Thank you for your understanding. NGA Mortensen 08/28/23 1124 documented in this encounter [facility] [employer] 08-07-2023 History of Present illness Narrative Images from the original note were not included. [address] [place] [address] A [facility] B [facility] [id number] Patient: Georges Wu Date of : 1980 Encounter Date: 08/07/2023 History of Present Illness: The patient is a 43 y.o. male, an established patient, and is here for rash. Please see his history below Overall, he feels his voiding symptoms are stable. He recently developed a rash in the left groin/scrotum. He tried ewke-ddl-jnphbyh meds but they were ineffective. He saw [...] will notify him of the results through [employer]. 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 All treatments [...] atrial tachycardia Psoriasis Staph infection right arm, [facility], early Tobacco abuse Visual impairment Glasses Vocal cord paralysis Past Surgical History: Procedure Laterality Date ADENOIDECTOMY ARTHROSCOPY KNEE Left 11/25/2019 Performed by Flash Guzman DO at [facility] ARTHROSCOPY PARTIAL LATERAL MENISCECTOMY KNEE Left 07/18/2022 Performed by Flash Guzman DO at [facility] CHOLECYSTECTOMY 2004 [place] COLONOSCOPY CYSTECTOMY CYSTOSCOPY N/A 04/05/2023 Performed by Yvonne Short MD at [facility] EPIDIDYMECTOMY Bilateral 11/04/2020 Performed by Yvonne Souza MD at [facility] HERNIA REPAIR Abdm after gall bladder surgery NEUROLYSIS SPERMATIC CORD SUBINGUINAL Right 03/10/2021 Performed by Yvonne Souza MD at [facility] PARTIAL VASECTOMY Bilateral 02/05/2020 Performed by Yvonne Souza MD at [facility] RESECTION SUBMUCOSAL Bilateral 05/19/2020 Performed by Flash Tate MD PhD at [facility] SEPTOPLASTY N/A 05/19/2020 Performed by Flash Tate MD PhD at [facility] TONSILLECTOMY TONSILLECTOMY Bilateral 05/19/2020 Performed by Flash Tate MD PhD at [facility] UVULOPLASTY N/A 05/19/2020 Performed by Flash Tate MD PhD at [facility] Family History Problem Relation Age of Onset [...] will notify him of the results through [employer]. If low, we will need him to come in for an appointment to discuss testosterone supplementation options NGA MORTENSEN This note was created with the assistance of a speech recognition program. While intending to generate a timely document that accurately reflects the content of the visit, no guarantee can be provided that every grammatical or spelling mistake has been or will be identified or corrected. Thank you for your understanding. NGA Mortensen 08/07/23 4782 documented in this encounter [employer] 08-07-2023 Instructions NGA Mortensen - 08/07/2023 4:00 PM EST Stop the [...] will notify you of the results through [employer]. If it is low, then we will need to get you set up for an appointment to discuss options for testosterone supplementation Audrey: [phone] (Ext [phone]) documented in this encounter [employer] 07-18-2023 Note US THYROID History: Thyroid nodule [...] postop No answer Left brief VM Samy Flannery MD, PhD documented in this encounter [facility] 12-28-2021 Note HNO ID: [id number] Author: Leslie Torres APRN.INSTRUCTIONAL DESIGNER Service: Anesthesiology Author Type: Nurse Art Preparator Type: Anesthesia Procedure Notes Filed: 12/28/2021 12:10 PM Note Text: ANESTHESIOLOGY PROCEDURE NOTE Airway General Information Procedure Start Time/Medication Administration: 12/28/2021 12:05 PM Patient location during procedure: OR Patient identity confirmed: arm band Staffing INSTRUCTIONAL DESIGNER: Leslie Torres APRN.INSTRUCTIONAL DESIGNER Performed by: INSTRUCTIONAL DESIGNER Indications and Patient Condition Preoxygenated: yes Patient position: sniffing Indications for airway management: anesthesia anesthesia circuit Method: asleep Final Airway Details Final airway type: supraglottic airway Number of attempts at approach: 1 Final Supraglottic Airway: IGEL Size 5 Seal Adequate: yes Airway not difficult SIGNATURE: Leslie Torres APRN.INSTRUCTIONAL DESIGNER PATIENT NAME: Georges Wu DATE: December 28, 2021 TIME: 12:09 PM CSN: [id number] [facility] 12-19-2021 Instructions Olga Muse PA-C - 12/19/2021 11:13 AM EDT PATIENT PREOPERATIVE INSTRUCTIONS Yvonne Coleman MD has scheduled you for your procedure at this surgery center: [facility]: [phone] --If no call by 4pm the day before surgery, please call this number. [address] [place] [address]. Please read below carefully for your personalized [...] Procedures: - YOU MUST HAVE A RESPONSIBLE SYSTEM ARCHIVE ANALYST TAKE YOU HOME. A HYDROGEN PLANT OPERATOR OR SPEECH LANGUAGE PATHOLOGIST ASSISTANT CANNOT BE MADE A RESPONSIBLE SYSTEM ARCHIVE ANALYST. - We recommend that a responsible person [...] Advance Directive, please fax a copy to [phone] or email to for it to be [...] Olga Muse PA-C documented in this encounter [facility] 12-19-2021 History and physical note PREANESTHESIA [...] (FLONASE) 50 mcg/actuation nasal spray Use 1 [place] in the nose. (Patient not taking: Reported [...] fevers. Neuro: No history of TIA's, stroke, RECEIVABLE EXECUTIVE tumor, impaired sensorium, hemiplegia, paraplegia or quadraplegia. [...] device. I spent more than 0-20 minutes qmbj-jo-jrns with the patient and over half the time was devoted to counseling and/or coordination of care. This is a virtual visit. It required patient-provider interaction for the medical decision making as documented above. SIGNATURE: Olga Muse PA-C PATIENT NAME: Georges Wu DATE: 12/19/21 TIME: 11:12 AM PAGER/CONTACT #: documented in this encounter [facility] 12-18-2021 Note HNO ID: [id number] Author: Yvonne Coleman MD Service: ? Author Type: Physician Type: Progress Notes Filed: 12/18/2021 9:22 AM Note Text: Georges Wu Referred by: Sim Bains [address] [place] [address] 12/18/2021 CC: Testis Pain HPI: 41 year [...] (FLONASE) 50 mcg/actuation nasal spray Use 1 [place] in the nose. - hydrocortisone 2.5 % [...] a right-sided spermatic cord denervation all in [place]. Plan: We discussed that the options remaining [...] this note. Con (more content not included)... [facility] 12-18-2021 History of Present illness Narrative Georges Wu Referred by: Sim Bains [id number] to [facility] [id number] 12/18/2021 CC: Testis Pain HPI: 41 year [...] (FLONASE) 50 mcg/actuation nasal spray Use 1 [place] in the nose. hydrocortisone 2.5 % ointment [...] a right-sided spermatic cord denervation all in [place]. Plan: We discussed that the options remaining [...] this note. Consultation requested by Dr. Sim Bains [id number] Pending [facility] to [facility] [phone] for an opinion regarding testis pain and my final recommendations will be communicated back to the requesting physician by way of shared Medical record or letter via US mail. Yvonne Coleman MD I spent a total of 40 minutes on the date of the service which included preparing to see the patient, [id number] patient care and completing clinical documentation. documented in this encounter [facility] 11-02-2021 Note HNO ID: [id number] Author: Sim Bains MD Service: ? Author Type: Physician Type: Progress Notes Filed: 11/02/2021 2:07 PM Note Text: [facility] NEW PATIENT HISTORY AND PHYSICAL EXAM PATIENT INFO: Georges Wu 41 year old CHIEF COMPLAINT: R testis pain. HISTORY: Georges Wu is a 41 year old male who [...] month. The pain recurred and saw a painter interior finish in [place]. He was done another nerve block in [...] Color YELLOW YELLOWYELLOW ? 10/11/2021 1:43 AM [facility] ? Turbidity CLEAR CLEARCLEAR ? 10/11/2021 1:43 AM [facility] ? Specific gravity >1.030 1.003 - 1.035 ? 10/11/2021 1:43 AM [facility] ? Nitrite Negative NegativeNegative ? 10/11/2021 1:43 AM [facility] ? Ph urine 6.0 5.0 - 8.5 ? 10/11/2021 1:43 AM [facility] ? Leukocyte esterase Negative NegativeNegative ? 10/11/2021 1:43 AM [facility] ? Protein Negative NegativeNegative mg/dL ? 10/11/2021 1:43 AM [facility] ? Glucose, Ur Negative NegativeNegative mg/dL ? 10/11/2021 1:43 AM [facility] ? Ketones urine Negative NegativeNegative mg/dL ? 10/11/2021 1:43 AM [facility] ? Urobilinogen 0.2 <1.1 eu/dL ? 10/11/2021 1:43 AM [facility] ? Bilirubin, urine Negative NegativeNegative ? 10/11/2021 1:43 AM [facility] ? Hemoglobin Negative NegativeNegative ? 10/11/2021 1:43 AM [facility] ? ? Location: testicle right ? Pain [...] vasectomy (January 2021 (more content not included)... [facility] 11-02-2021 History of Present illness Narrative [facility] NEW PATIENT HISTORY AND PHYSICAL EXAM PATIENT INFO: Georges Wu 41 year old CHIEF COMPLAINT: R testis pain. HISTORY: Georges Wu is a 41 year old male who [...] month. The pain recurred and saw a painter interior finish in [place]. He was done another nerve block in [...] EDT) Color YELLOW YELLOW^YELLOW 10/11/2021 1:43 AM EDT [facility] Turbidity CLEAR CLEAR^CLEAR 10/11/2021 1:43 AM EDT [facility] Specific gravity >1.030 1.003 - 1.035 10/11/2021 1:43 AM [facility] Nitrite Negative Negative^Negative 10/11/2021 1:43 AM [facility] Ph urine 6.0 5.0 - 8.5 10/11/2021 1:43 AM [facility] Leukocyte esterase Negative Negative^Negative 10/11/2021 1:43 AM [facility] Protein Negative Negative^Negative mg/dL 10/11/2021 1:43 AM [facility] Glucose, Ur Negative Negative^Negative mg/dL 10/11/2021 1:43 AM [facility] Ketones urine Negative Negative^Negative mg/dL 10/11/2021 1:43 AM [facility] Urobilinogen 0.2 <1.1 eu/dL 10/11/2021 1:43 AM [facility] Bilirubin, urine Negative Negative^Negative 10/11/2021 1:43 AM [facility] Hemoglobin Negative Negative^Negative 10/11/2021 1:43 AM [facility] Location: testicle right Pain Character: sharp and [...] month. The pain recurred and saw a painter interior finish in [place]. He was done another nerve block in the R groin wout success. Actually, his pain got worse. He recently needed to go to ED twice. I refer pt to Dr. Yvonne Coleman to consider R testis denervation. Sim Bains MD Medical Decision Making: Problems: Moderate: 1+ chronic illnesses with change Data: Unique test result(s) reviewed: 3+ Assessment requiring an independent historian(s) Risk: Low: Low risk from testing/treatment Medical Decision Making Level: 4 - Moderate Sim Bains MD, PhD [facility] [place] [facility] November 02, 2021 [id number] 1:22 PM CC: REFERRING PROVIDER: Yvonne Souza MD PRIMARY CARE PHYSICIAN: No primary care provider on file. documented in this encounter [facility] 10-30-2021 Miscellaneous Notes Patient calling with [...] have any questions, you can call Nurse condenser setter back. documented in this encounter [facility] Evaluation note Diagnosis Pain in right testicle- Primary Unspecified disorder of male genital organs [facility] Diagnosis Pain in right testicle Unspecified disorder of male genital organs [facility] Diagnosis Testicular pain, right- Primary Unspecified disorder of male genital organs Testicular pain, right Unspecified disorder of male genital organs [facility] Diagnosis Preop examination- Primary Preoperative examination, unspecified Pain in right testicle Unspecified disorder of male genital organs Gastroesophageal reflux disease without esophagitis Esophageal reflux Tobacco use Tobacco use disorder Testicular pain, right Unspecified disorder of male genital organs [facility] Diagnosis Erectile dysfunction, unspecified erectile dysfunction type- Primary Rash Rash and other nonspecific skin eruption [facility] encounter [facility] Diagnosis Hypogonadism in male- Primary documented in this encounter [facility]* Diagnosis Low testosterone in male- Primary documented in this encounter [facility]* Attachments The following attachments cannot be sent through Care Everywhere. * Androgen replacement in men (Bangladeshi) [facility] on [facility] documented in [facility] System[facility]ructionsNot on file [facility] Reason for Referral Specialty Diagnoses / Procedures Referred By Justino salcedo Referred To Contact Urology Diagnoses Pain in right testicle Procedures CONSULT TO UROLOGY OFFICE/OUTPATIENT [facility] HIGH MDM 60-74 MINUTES Sim Bains MD [address] [place] [address] Yvonne Coleman MD [address] [place] [address] Referral ID Status Reason Start Date Expiration Date Visits Requested Visits Authorized [id number] Authorized PCP Requested Referral 11/02/2021 11/02/2022 1 1 Summary Purpose Family History No Family History Records FoundNo Family History Records FoundNo Family History Records FoundNo Family History Records FoundNo Family History Records FoundNo Family History Records FoundNo Family History Records FoundNo Family History Records Found Advance Directives Documents on File Type Date Recorded Patient Pediatric Pathologist Expl anation Advance Directive(s) 12/20/2021 10:33 AM Additional Source Comments Source Comments (unrecognize d section and content) In the event this informatio n is protected by the Federal Confidentiality of Alcohol and Drug Abuse Patient Records regulations: The Federal rules restrict any use of the information to criminally investigate or prosecute any alcohol or drug abuse patient.[facility] the event this information is protected by the Federal Confidentiality of Alcohol and Drug Abuse Patient Records regulations: The Federal rules restrict any use of the information to criminally investigate or prosecute any alcohol or drug abuse patient.[facility] Hospital[facility] the event this information is protected by the Federal Confidentiality of Alcohol and Drug Abuse Patient Records regulations: The Federal rules restrict any use of the information to criminally investigate or prosecute any alcohol or drug abuse patient.[facility] the event this information is protected by the Federal Confidentiality of Alcohol and Drug Abuse Patient Records regulations: The Federal rules restrict any use of the information to criminally investigate or prosecute any alcohol or drug abuse patient.[facility] the event this information is protected by the Federal Confidentiality of Alcohol and Drug Abuse Patient Records regulations: The Federal rules restrict any use of the information to criminally investigate or prosecute any alcohol or drug abuse patient.[facility] the event this information is protected by the Federal Confidentiality of Alcohol and Drug Abuse Patient Records regulations: The Federal rules restrict any use of the information to criminally investigate or prosecute any alcohol or drug abuse patient.[facility] Reason for Visit (unrecogniz ed section and content) Reason Comments Referral Information Reason Comments New Patient right testicular gisela n Reason Comments Established Patient right testicular gisela n Specialty Diagnoses / Procedures Referred By Justino salcedo Referred To Contact Urology Diagnoses Pain in right testicle Procedures CONSULT TO UROLOGY OFFICE/OUTPATIENT NEW HIGH MDM 60-74 MINUTES Sim Bains MD [address] [place] [address] Yvonne Coleman MD [address] [place] [address] Referral ID Status Reason Start Date Expiration Date V isits Requested Visits Authorized [id number] Closed PCP Requested Referral 11/02/2021 11/02/2022 1 1 Specialty Diagnoses / Procedures Referred By Justino salcedo Referred To Contact ANESTHESIOLOGY Diagnoses SPERMATIC CORD DENERVATION [79319] - Groin - Right EXCISION LESION SPERMATIC CORD [9362] - Right EXCISION 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 Procedures SPERMATIC CORD DENERVATION [14327] - Groin - Right EXCISION LESION SPERMATIC CORD [9362] - Right EXCISION 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 Yvonne Coleman MD [address] [place] [address] [facility] [address] [place] [address] Referral ID Status Reason Start Date Expiration Date Visits Requested Visits Authorized [id number] Pending Review OON/Self Pay Override 12/19/2021 03/19/2022 1 1 Reason Comments Post-Op Visit Reason Comments Rash Reason Comments Follow-up Care Teams (unrecognized sec tion and content) Cigar Roller Relationship Specialty Start Date End Date Yvonne Souza MD [address] [place] [address] Referring Urology 10/26/21 Cigar Roller Relationship Specialty Start Date End Date Yvonne Souza MD [address] [place] [address] Referring Urology 10/26/21 Cigar Roller Relationship Specialty Start Date End Date Yvonne Souza MD [address] [place] [address] Referring Urology 10/26/21 Cigar Roller Relationship Specialty Start Date End Date Yvonne Souza MD [address] [facility] [address] Referring Urology 10/26/21 Cigar Roller Relationship Specialty Start Date End Date Yvonne Souza MD [address] [facility] [address] Referring Urology 10/26/21 Cigar Roller Relationship Specialty Start Date End Date Love Templeton MD [address] [place] [address] PCP - General Family Practice 12/20/21 Yvonne Souza MD [address] [facility] [address] Referring Urology 10/26/21 Cigar Roller Relationship Specialty Start Date End Date Love Templeton MD [address] [facility] [place] [address] PCP - General Family Medicine 08/02/16 Cigar Roller Relationship Specialty Start Date End Date Love Templeton MD [address] [place] [address] PCP - General Family Medicine 08/13/23 Cigar Roller Relationship Specialty Start Date End Date Love Templeton MD [address] [place] [address] PCP - General Family Medicine 08/13/23 Cigar Roller Relationship Specialty Start Date End Date Love Templeton MD [address] [place] [address] PCP - General Family Medicine 08/13/23 Cigar Roller Relationship Specialty Start Date End Date Love Templeton MD [address] [place] [address] PCP - General Family Medicine 08/13/23 (unrecognized sect ion and content) No Status Records FoundNo Status Records FoundNo Status Records FoundNo Status Records FoundNo Status Records FoundNo Status Records FoundNo Status Records FoundNo Status Records Found INFORMATION SOURCE (unrecogn ized section and content) DATE CREATED AUTHOR 12/29/2021 [facility] DATE CREATED AUTHOR AUTHOR'S ORGANIZ ATION 12/30/2021 [facility] DATE CREATED AUTHOR AUTHOR'S ORGANIZ ATION 04/27/2022 [facility] DATE CREATED AUTHOR AUTHOR'S ORGANIZ ATION 05/23/2022 [facility] DATE CREATED AUTHOR AUTHOR'S ORGANIZ ATION 06/08/2023 [facility] DATE CREATED AUTHOR AUTHOR'S ORGANIZ ATION 08/22/2023 [facility] DATE CREATED AUTHOR AUTHOR'S ORGANIZ ATION 08/28/2023 [facility] DATE CREATED AUTHOR AUTHOR'S ORGANIZ ATION 09/01/2023 [facility] FOR RECORDS PERTAINING TO PATIENTS WHO ARE [...] BE BASED ON THE PRIMARY CLINICAL RECORDS. [employer] provides no warranty or guarantee of the accuracy or completeness of information in this document.
[2023-09-24 09:42] LABS: Glucometer 123 mg/dL (74-106)
--- NOTE | 2023-09-24 09:45 | ED_ITS ---
HPI - General Adult General Chief complaint: Abdominal Pain Stated complaint: ABDOMINAL PAIN Time Seen by Provider: 09/24/23 09:38 Source: patient Mode of arrival: walk-in Limitations: no limitations History of Present Illness HPI narrative: Patient is a 43-year-old male who is presenting to the ER today with chief complaint of left arm and leg weakness that started at 4 PM. Patient has left superior parietal headache that started around 4 PM last evening as well. No neck pain. Patient has no chest pain or shortness of breath. Patient does have nausea. Patient does have nausea medication at home, patient no vomiting. Patient did not take his nausea medication at home because him and his did not think about it. Patient has had consistent mild weakness of left arm and leg, he went to bed last evening with the weakness. Patient was hoping to wake up this morning and the weakness would go away but it has not. Patient is not dropping things. Patient has no other acute complaints. All systems are negative except as noted/marked. All systems reviewed and otherwise negative. Nurses note and vital signs reviewed and patient is not hypoxic. General: The patient appears well and in no apparent distress. Patient is resting comfortably on cart. Patient is not toxic, lethargic, or listless Skin: Warm, dry, no pallor noted. There is no rash noted. No petechiae, purpura. Head: Normocephalic, atraumatic Eye: Normal conjunctiva, no drainage, EOMI. PERRL Ears, Nose, Mouth, and Throat: oral mucosa is moist. Nares patent. Mouth without vesicles. Cardiovascular: Regular Rate and Rhythm, no murmur, gallop, rub Respiratory: Patient is in no distress, no accessory muscle use, lungs are clear to auscultation, no wheezing, rales or rhonchi Back: non-tender, no CVA tenderness bilaterally to percussion. No CT LS midline pain GI: no tenderness to palpation, no masses appreciated. No rebound, guarding, or rigidity noted. No distention Musculoskeletal: Patient has full range of motion of all of the extremities, no motor, sensory, or focal neurological deficits. No appreciated weakness on physical exam, patient however feels slightly weak to his left arm and leg compared to the right. Neurological: A&O x4, normal speech, NIH 0. Psychiatric: Cooperative Related Data Home Medications Medication Instructions Recorded Confirmed atorvastatin 10 mg tablet 10 mg PO DAILY 08/26/23 09/24/23 famotidine 20 mg tablet 20 mg PO BEDTIME 08/26/23 09/24/23 omeprazole 20 mg capsule,delayed 20 mg PO DAILY 08/26/23 09/24/23 release albuterol sulfate 90 mcg/actuation 2 puff inhalation Q4H PRN 09/24/23 09/24/23 aerosol inhaler shortness of breath or wheezing sildenafil 100 mg tablet 100 mg PO Q24H PRN sexual activity 09/24/23 09/24/23 Previous Rx's Medication Instructions Recorded ondansetron 4 mg disintegrating 4 mg PO Q4H PRN nausea and 09/24/23 tablet vomiting 3 days #6 tabs Allergies Allergy/AdvReac Type Severity Reaction Status Date / Time tizanidine Allergy anger Verified 08/30/23 14:54 trazodone Allergy confusion Verified 08/30/23 14:54 bupropion AdvReac GI upset Verified 08/30/23 14:54 cephalexin AdvReac GI upset Verified 08/30/23 14:54 diphenhydramine AdvReac Drowsy Verified 08/30/23 14:54 escitalopram [From Lexapro] AdvReac Irritable Verified 09/24/23 09:30 PFS PFS Medical History (Updated 09/24/23 @ 12:10 by Garret Abbasi MD) Osteoarthritis ?M19.90 - Unspecified osteoarthritis, unspecified site (ICD-10) High cholesterol ?E78.00 - Pure hypercholesterolemia, unspecified (ICD-10) Migraine ?G43.909 - Migraine, unspecified, not intractable, without status migrainosus (ICD-10) IBS (irritable bowel syndrome) ?K58.9 - Irritable bowel syndrome without diarrhea (ICD-10) GERD (gastroesophageal reflux disease) ?K21.9 - Gastro-esophageal reflux disease without esophagitis (ICD-10) H/O ETOH abuse ?F10.11 - Alcohol abuse, in remission (ICD-10) Fatty liver ?K76.0 - Fatty (change of) liver, not elsewhere classified (ICD-10) Anxiety and depression ?F41.9 - Anxiety disorder, unspecified (ICD-10) ?F32.A - Depression, unspecified (ICD-10) Surgical History (Updated 09/24/23 @ 09:34 by Anahi Mayfield) History of endoscopy ?Z98.890 - Other specified postprocedural states (ICD-10) S/P fine needle aspiration ?Z98.890 - Other specified postprocedural states (ICD-10) Hx of nasal septoplasty ?Z98.890 - Other specified postprocedural states (ICD-10) H/O arthroscopy of left knee ?Z98.890 - Other specified postprocedural states (ICD-10) H/O hernia repair ?Z98.890 - Other specified postprocedural states (ICD-10) ?Z87.19 - Personal history of other diseases of the digestive system (ICD-10) H/O epididymectomy ?Z90.79 - Acquired absence of other genital organ(s) (ICD-10) Hx of cystoscopy ?Z98.890 - Other specified postprocedural states (ICD-10) H/O excision of dermoid cyst ?Z98.890 - Other specified postprocedural states (ICD-10) ?Z86.018 - Personal history of other benign neoplasm (ICD-10) H/O colonoscopy ?Z98.890 - Other specified postprocedural states (ICD-10) History of cholecystectomy ?Z90.49 - Acquired absence of other specified parts of digestive tract (ICD- 10) S/P tonsillectomy and adenoidectomy ?Z90.89 - Acquired absence of other organs (ICD-10) Social History Smoking status: Heavy tobacco smoker Exam Constitutional Vital Signs, click to edit/add: Last Vital Signs Temp 98.6 F 09/24/23 09:16 Pulse 83 09/24/23 11:40 Resp 19 09/24/23 11:40 BP 126/58 09/24/23 11:30 Pulse Ox 96 09/24/23 11:40 O2 Del Method Room Air 09/24/23 09:32 Course Vital Signs Vital signs: Vital Signs Temperature 98.6 F 09/24/23 09:16 Pulse Rate 94 H 09/24/23 09:16 Respiratory Rate 20 09/24/23 09:16 Blood Pressure 140/79 09/24/23 09:16 Pulse Oximetry 98 09/24/23 09:16 Oxygen Delivery Method Room Air 09/24/23 09:16 Temperature 98.6 F 09/24/23 09:16 Pulse Rate 83 09/24/23 11:40 Respiratory Rate 19 09/24/23 11:40 Blood Pressure 126/58 09/24/23 11:30 Pulse Oximetry 96 09/24/23 11:40 Oxygen Delivery Method Room Air 09/24/23 09:32 Medical Decision Making MDM Narrative Medical decision making narrative: 1110 Patient's nausea has improved, patient's headache is slightly improved, patient is 300 cc of fluid to still infuse. Patient weakness is slightly improved but still present to left arm and leg, I am not able to appreciate a significant weakness to his left arm and leg. Patient will be given Toradol for the headache, Antivert for still mild vertiginous symptoms/unsteadiness and we will reassess to see if patient will stay overnight or be discharged to follow- up with outpatient testing. 1200 I spoke to patient's PCP, Dr. Templeton. Patient has multiple ongoing intermittent chronic complaints. Patient sees urology, ENT, GI, and she would be happy to see him in the office tomorrow and agrees that patient does not need to be admitted to the hospital for the very mild weakness to left arm and leg. Patient's headache is improved with Toradol and IV fluids. Nausea has improved. Patient still has minimal lightheaded dizziness, no vertigo, no ataxia when he walked to the bathroom as witnessed by myself. Patient will follow-up with PCP tomorrow to do additional outpatient testing as needed. Patient looks well. Patient was recommended to start taking a full aspirin daily secondary to his TIA last year and potential strokelike symptoms/weakness today. Patient CT of the head and CT of the head neck showed no acute findings. Patient potassium is slightly low at 8.2. Patient feels better at discharge and will see Dr. Templeton tomorrow for additional outpatient testing. No questions at discharge. Patient looks well. Lab Data Lab results reviewed: Yes I reviewed the patient's lab results Labs: Lab Results 09/24/23 09/24/23 Range/Units 09:40 09:44 WBC 6.4 (4.0-11.0) 10^3/uL RBC 4.51 L (4.70-6.10) 10^6/uL Hgb 14.4 (14.0-18.0) g/dL Hct 43.3 (42.0-54.0) % MCV 96.0 H (80.0-94.0) fL MCH 31.9 (25.9-34.0) pg MCHC 33.3 (29.9-35.2) g/dL RDW 12.0 (11.0-15.0) % Plt Count 221 (150-450) 10^3/uL MPV 9.9 (9.5-13.5) fL Neut % (Auto) 75.9 H (43.0-75.0) % Lymph % (Auto) 13.5 L (20.5-60.0) % [place] % (Auto) 9.4 (1.7-12.0) % Eos % (Auto) 0.5 L (0.9-7.0) % Baso % (Auto) 0.2 (0.2-2.0) % Neut # (Auto) 4.8 (1.4-6.5) 10^3/uL Lymph # (Auto) 0.9 L (1.2-3.8) 10^3/uL [place] # (Auto) 0.6 (0.3-0.8) 10^3/uL Eos # (Auto) 0.0 (0.0-0.7) 10^3/uL Baso # (Auto) 0.0 (0.0-0.1) 10^3/uL Abs Immat Gran (auto) 0.03 (0.00-0.03) 10^3/uL Imm/Tot Granulo (auto) 0.5 (0.0-0.5) % PT 9.3 (9.0-11.6) sec INR <0.93 APTT 26.9 (22.3-36.2) sec Sodium 139 (136-145) mmol/L Potassium 3.9 (3.5-5.1) mmol/L Chloride 103 (98-107) mmol/L Carbon Dioxide 27.8 (21.0-32.0) mmol/L Anion Gap 12.1 BUN 9.0 (7.0-18.0) mg/dL Creatinine 0.83 (0.70-1.30) mg/dL Est GFR ( Amer) >60 (>=60) Est GFR (Non-Af Amer) >60 (>=60) BUN/Creatinine Ratio 10.8 Glucose 110 H (74-106) mg/dL Calcium 8.2 L (8.5-10.1) mg/dL Total Bilirubin 0.6 (0.2-1.0) mg/dL AST 21 (15-37) U/L ALT 42 (16-63) U/L Alkaline Phosphatase 86 (46-116) U/L Troponin I High Sens <4.0 L (4.0-76.1) pg/mL Total Protein 6.8 (6.4-8.2) g/dL Albumin 3.4 (3.4-5.0) g/dL Globulin 3.4 g/dL Albumin/Globulin Ratio 1.0 POC Glucose 123 H (74-106) mg/dL Patient's calcium is 8.2. Otherwise lab work does not show any significant findings. Imaging Data CT scan - head: Radiologist's impression: ITS Impressions Brain CT 09/24/23 09:38 IMPRESSION: No acute large vascular territory infarct or acute intracranial hemorrhage visible by CT. If there is ongoing clinical concern for acute ischemia recommend MRI brain for further evaluation. Electronically authenticated by: HELADIO KEYS Date: 09/24/2023 10:10 Chest X-Ray 09/24/23 09:38 IMPRESSION: No acute cardiopulmonary process Electronically authenticated by: ANAHI NETTLES Date: 09/24/2023 10:11 Head CTA 09/24/23 09:38 IMPRESSION: 1. Normal CT angiogram of the brain. 2. Normal CTA of the neck. No carotid or vertebral artery stenosis. No dissection. 3. There is a solid heterogeneously enhancing nodule inferiorly in the left lobe of the thyroid measuring approximately 2.5 x 3.0 cm that appears to be stable in size. Electronically authenticated by: JIN MAHARAJ Date: 09/24/2023 10:43 Neck CTA 09/24/23 09:38 IMPRESSION: 1. Normal CT angiogram of the brain. 2. Normal CTA of the neck. No carotid or vertebral artery stenosis. No dissection. 3. There is a solid heterogeneously enhancing nodule inferiorly in the left lobe of the thyroid measuring approximately 2.5 x 3.0 cm that appears to be stable in size. Electronically authenticated by: JIN MAHARAJ Date: 09/24/2023 10:43 ECG Data Attestation: I personally reviewed and interpreted this ECG as follows: (EKG interpretation. Normal sinus rhythm at 82 beats a minute. Normal axis deviation. No acute ST elevation, no acute ectopy. EKG reading incomplete right bundle branch block. QTc 394.) Discharge Plan Discharge Chief Complaint: Abdominal Pain Clinical Impression: Headache, Left leg weakness, Dehydration, mild, Left arm weakness, Nausea Patient Disposition: Home, Self-Care Time of Disposition Decision: 12:06 Condition: Fair Prescriptions / Home Meds: New ondansetron 4 mg tablet,disintegrating 4 mg PO Q4H PRN (Reason: nausea and vomiting) 3 Days Qty: 6 0RF No Action omeprazole 20 mg capsule,delayed release(DR/EC) 20 mg PO DAILY atorvastatin 10 mg tablet 10 mg PO DAILY famotidine 20 mg tablet 20 mg PO BEDTIME albuterol sulfate 90 mcg/actuation HFA aerosol inhaler 2 puff INHALATION Q4H PRN (Reason: shortness of breath or wheezing) sildenafil 100 mg tablet 100 mg PO Q24H PRN (Reason: sexual activity) Instructions: Dehydration (ED), Acute Headache (ED), Acute Nausea and Vomiting (ED), Hypocalcemia (ED), Weakness (ED) Additional Instructions: Call Dr. Templeton today, she will see you in the office tomorrow. as discussed, start taking a full aspirin daily for the rest of your life, Unless directed otherwise by your physician. Start taking a daily men's multivitamin for the rest of your life to help with electrolytes. Stand Alone Forms: Portal Instructions Referrals: URMILA TEMPLETON [Primary Care Provider] - 1 week
[2023-09-24 09:52] LABS: Basophils Percent Auto 0.2 % (0.2-2.0); Eosinophils Percent Auto 0.5 % (0.9-7.0); Hematocrit 43.3 % (42.0-54.0); Hemoglobin 14.4 g/dL (14.0-18.0); Immature Granulocytes Abs Auto 0.03 10^3/uL (0.00-0.03); Immature Granulocytes Pct Auto 0.5 % (0.0-0.5); Lymphocytes Absolute Auto 0.9 10^3/uL (1.2-3.8); Lymphocytes Percent Auto 13.5 % (20.5-60.0); Mean Corpuscular HGB Conc 33.3 g/dL (29.9-35.2); Mean Corpuscular Hemoglobin 31.9 pg (25.9-34.0); Mean Platelet Volume 9.9 fL (9.5-13.5); Monocytes Absolute Auto 0.6 10^3/uL (0.3-0.8); Monocytes Percent Auto 9.4 % (1.7-12.0); Neutrophils Absolute Auto 4.8 10^3/uL (1.4-6.5); Neutrophils Percent Auto 75.9 % (43.0-75.0); Platelet Count 221 10^3/uL (150-450); Red Blood Count 4.51 10^6/uL (4.70-6.10); White Blood Count 6.4 10^3/uL (4.0-11.0)
[2023-09-24 10:08] LABS: Partial Thromboplastin Time 26.9 sec (22.3-36.2); Prothrombin Time 9.3 sec (9.0-11.6)
[2023-09-24] MEDS: ONDANSETRON PF 4 MG/2 ML VIAL IV (10:09)
[2023-09-24 10:16] LABS: Alanine Aminotransferase 42 U/L (16-63); Albumin Level 3.4 g/dL (3.4-5.0); Alkaline Phosphatase 86 U/L (46-116); Anion Gap 12.1; Aspartate Amino Transferase 21 U/L (15-37); BUN Creatinine Ratio 10.8; Bilirubin Total 0.6 mg/dL (0.2-1.0); Calcium 8.2 mg/dL (8.5-10.1); Carbon Dioxide 27.8 mmol/L (21.0-32.0); Chloride 103 mmol/L (98-107); Estimated GFR (African America >60 (>=60); Estimated GFR (Non-African Ame >60 (>=60); Globulin 3.4 g/dL; Glucose 110 mg/dL (74-106); Potassium 3.9 mmol/L (3.5-5.1); Sodium 139 mmol/L (136-145); Total Protein 6.8 g/dL (6.4-8.2); Troponin I High Sensitivity <4.0 pg/mL (4.0-76.1)
[2023-09-24 10:18] LABS: INR <0.93
[2023-09-24] MEDS: 0.9 % SODIUM CHLORIDE 1,000 ML 1000 ML IV (10:22)
[2023-09-24] MEDS: ASPIRIN 325 MG TABLET PO (10:51)
[2023-09-24] MEDS: MECLIZINE HCL 12.5 MG TABLET 25 MG PO (11:28)
[2023-09-24] MEDS: KETOROLAC TROMETHAMINE 30 MG/ML VIAL 15 MG IVP (11:28)
== END 2023-09-24 12:17 | disposition home or self-care (01) ==
PROVIDERS: Emergency Provider Emergency Medicine; PCP Family Medicine
DX: E86.0 Dehydration (principal); R51.9 Headache, unspecified; E78.00 Pure hypercholesterolemia, unspecified; M19.90 Unspecified osteoarthritis, unspecified site; K58.9 Irritable bowel syndrome, unspecified; F10.11 Alcohol abuse, in remission; K76.0 Fatty (change of) liver, not elsewhere classified; K21.9 Gastro-esophageal reflux disease without esophagitis; F41.9 Anxiety disorder, unspecified; F32.A Depression, unspecified; Z90.49 Acquired absence of other specified parts of digestive tract; F17.200 Nicotine dependence, unspecified, uncomplicated; R11.0 Nausea; R42 Dizziness and giddiness; R53.1 Weakness; Z86.73 Personal history of transient ischemic attack (TIA), and cerebral infarction without residual deficits
CPT/HCPCS: 36415; 70450; 70496; 70498; 71046; 80053; 84484; 85025; 85610; 85730; 93005; 96361; 96374; 96375; 99285; Q9967

== ENCOUNTER 2023-12-03 12:59 | Outpatient (OUT) | payer MEDICAID, SELFPAY | END 2023-12-03 13:00 | disposition home or self-care (01) | LOC: SLEEP 12:59 | DX: G47.33 Obstructive sleep apnea (adult) (pediatric) (principal) | CPT/HCPCS: 95806 ==